=== PATIENT | male | born 1935 | race Caucasian/White ===

== ENCOUNTER → 2018-12-28 08:18 | Outpatient (CLI) | payer MEDICARE, SELFPAY ==
--- NOTE | 2018-12-28 08:30 | US_ITS ---
PROCEDURE: US AORTA CLINICAL INDICATION: AAA Abdominal aortic aneurysm follow-up COMPARISON: No exams were available for comparison FINDINGS: There are no previous exams available for comparison. There is history of aortic stent placement. Aneurysmal dilatation noted involving the abdominal aorta at the level of the umbilicus measuring 6.5 x 6.7 cm. Aortoiliac stent is noted. Common iliacs are unremarkable. There is moderate thrombus involving the aneurysm sac with flow noted within the stent. IMPRESSION: Status post aortoiliac stent placement for aortic aneurysm with dilatation of the lumbee aorta at 6.5 x 6.7 cm with patent stent within the central aspect of the aorta Dictated by: Pedro Lopez MD 12/29/2018 06:13 Electronically signed by Pedro Lopez MD in [facility] 12/29/2018 06:13
== END ==
PROVIDERS: PCP Family Medicine; Visit Provider Family Medicine
DX: Z98.890 Other specified postprocedural states (principal); R10.32 Left lower quadrant pain
CPT/HCPCS: 76770

== ENCOUNTER → 2020-05-10 13:34 | Outpatient (CLI) | payer MEDICARE, SELFPAY ==
--- NOTE | 2020-05-10 13:43 | CA_ITS ---
APPROVED REPORT Left Lower Extremity Venous Study for DVT. Chef'S Assistant: ZULMA Indications Lower Extremity Pain: Left Lower Extremity Edema: Left Patient denies trauma. He states he started having pain at his left ankle 3 days ago that has now moved up mid calf. Risk Factors HTN, hyperlipidemia, diabetes Medications Aspirin 81 mg ASA daily Vein Imaging CFV (L): compressive, spontaneous, phasic, augmentation FEM (L): compressive, spontaneous, phasic, augmentation POP (L): compressive, spontaneous, phasic, augmentation PTV (L): Compressible GSV (L): Partially Compressible SSV (L): Compressible Peroneals (L):Compressible GAS (L): Compressible Findings No evidence of DVT in the veins scanned of the left lower extremity. SVT seen in distal GSV. Conclusion No evidence of DVT in the veins scanned of the left lower extremity. SVT seen in distal GSV. Critical Notification Critical Value: Yes Physician Notified Date: 05/10/2020 Time: 14:17 Physician Name: Lilly Art Report Read Back Electronically signed by : Pedro Lopez MD 05/10/2020 16:43:51
== END ==
PROVIDERS: PCP Family Medicine; Visit Provider Family Medicine
DX: M79.662 Pain in left lower leg (principal)
CPT/HCPCS: 93971

== ENCOUNTER → 2020-12-12 13:42 | Outpatient (CLI) | payer MEDICARE, SELFPAY | PROVIDERS: PCP Family Medicine; Visit Provider Family Medicine | DX: R55 Syncope and collapse (principal) | CPT/HCPCS: 93225; 93226 ==

== ENCOUNTER → 2021-02-28 13:56 | Outpatient (CLI) | payer MEDICARE, SELFPAY ==
--- NOTE | 2021-02-28 13:59 | XR_ITS ---
PROCEDURE: XR RIBS RT MIN 3V W CXR1V CLINICAL INDICATION: CONTUSION OF RT CHEST WALL, SUBSEQUENT ENCOUNTER COMPARISON: CR CXR CHEST(2 VIEWS-NOT PORTABLE) from 06/30/2013 CR CXR CHEST(2 VIEWS-NOT PORTABLE) from 06/29/2015 FINDINGS: Frontal view of the chest shows no acute finding. Multiple views of the right ribs no definite fracture. No lytic or blastic change. IMPRESSION: No acute findings. Dictated by: Pedro Lopez MD 02/28/2021 14:34 Pedro Lopez MD in [facility] 02/28/2021 14:34
== END ==
PROVIDERS: PCP Family Medicine; Visit Provider Family Medicine
DX: S20.211D Contusion of right front wall of thorax, subsequent encounter (principal)
CPT/HCPCS: 71101

== ENCOUNTER 2021-03-30 12:12 | Inpatient (IN) | payer MEDICARE, SELFPAY ==
[2021-03-30] VITALS (17 sets, daily range): BP systolic 165–204; BP diastolic 76–117; PULSE 82–95; RESP 15–20; TEMP 36.7–36.8; O2SAT 3–96; BMI 31.9; BMI 33.1
--- NOTE | 2021-03-30 12:42 | CT_ITS ---
PROCEDURE INFORMATION: Exam: CT Abdomen And Pelvis Without Contrast Exam date and time: 03/30/2021 12:42 PM Age: 85 years old Clinical indication: Generalized; Prior surgery; Surgery date: 6+ months; Surgery type: 2 hernia surgeries, 2 stent placed at different times. ; Patient HX: Abdominal pain with distention. ; Additional info: Distention, abdominal pain TECHNIQUE: Imaging protocol: Computed tomography of the abdomen and pelvis without contrast. Radiation optimization: All CT scans at this facility use at least one of these dose optimization techniques: automated exposure control; mA and/or kV adjustment per patient size (includes targeted exams where dose is matched to clinical indication); or iterative reconstruction. COMPARISON: CR XR RIBS RT MIN 3V W CXR1V 02/28/2021 2:04 PM FINDINGS: Lungs: Calcified left pulmonary granuloma. Patchy subsegmental atelectasis or scarring in the medial right middle lobe and left lingula. No focal consolidation, as visualized. Heart: No cardiomegaly. Multiple coronary artery calcifications. Trace pericardial effusion. Liver: No hepatomegaly. Calcified hepatic granulomas. A sharply circumscribed 2.6 cm low-attenuation left hepatic lesion series 3, image 38, HU density -2, suggesting benign etiology such as cyst or possible hemangioma. No suspicious appearing mass on this limited nonenhanced exam. Gallbladder and bile ducts: Cholelithiasis. There is soft tissue edema abutting the gallbladder fundus, but no gallbladder wall thickening and no biliary dilatation. Pancreas: Fatty atrophic changes in the pancreas. No ductal dilatation. Spleen: The spleen is normal. Adrenal glands: The adrenal glands are normal. Kidneys and ureters: Small calcified stone obstructs the distal right ureter approximately 2 cm above the ureterovesical junction. This measures approximately 3 x 4 x 4 mm diameter, with HU density of 229, poorly seen on the powder monkey topogram due to tiny size of the stone and large body habitus. Proximal to this there is mild right hydronephrosis and hydroureter. There is prominent right perinephric/retroperitoneal soft tissue edema. There is an additional nonobstructing right upper pole calculus. No hydronephrosis, hydroureter, or calcified stones on the left. There is a 7 mm hyperdense left lateral renal cortical nodule with HU density 70, probably tiny hemorrhagic cyst, series 3, image 43. No suspicious lesions requiring follow-up. Stomach and bowel: There is diverticulosis coli, without evidence of acute diverticulitis. Gaseous distention of the proximal colon which could be slight colonic ileus, but no dilated loops or mucosal thickening, and no obstructing lesions are seen. No acute findings in the small intestine or stomach. Slightly thickened distal esophagus coronal image 56, and axial series 3, image 19, nonspecific, correlate for history of esophagitis. Appendix: A normal appendix is identified. Intraperitoneal space: There is mild free intraperitoneal fluid tracking along the right pericolic gutter, probably emanating from the right kidney. This is low-density fluid.There is no free intraperitoneal air. Vasculature: There is a chronic, known infrarenal abdominal aortic aneurysm. This measured 6.5 x 6.7 cm on a previous ultrasound report from 12/28/2018, and measures 6.8 x 7.2 cm diameter on series 3, image 77 today. Aorto bi-iliac endovascular stent graft is present. There is atherosclerotic disease scattered throughout the abdomen and pelvis. Lymph nodes: Calcified left hilar lymph nodes noted in the mediastinum. No significantly enlarged abdominal-pelvic lymph nodes by short axis crit
[2021-03-30 12:50] LABS: Basophils # 0.2 K/mm3 (0-0.2); Basophils % 1.4 % (0.1-2.0); Eosinophils % 0.3 % (0.1-12.0); Hematocrit 51.7 % (42.0-52.0); Hemoglobin 16.5 g/dL (14.1-18.0); Lymphocytes # 0.6 K/mm3 (0.7-4.5); Lymphocytes % 5.4 % (10-50); Mean Corpuscular HGB Conc 31.8 g/dL (31.8-35.4); Mean Corpuscular Hemoglobin 28.2 pg (27.0-31.2); Mean Corpuscular Volume 88.6 fl (80-94); Mean Platelet Volume 7.8 fl (7.4-10.4); Monocytes # 0.6 K/mm3 (0.1-1.0); Monocytes % 5.7 % (1.7-9.3); Neutrophils # 9.5 K/mm3 (1.8-7.8); Neutrophils % 87.2 % (37.0-80.0); Platelet Count 211 K/mm3 (142-424); Red Blood Count 5.83 M/mm3 (4.60-6.20); Red Cell Distribution Width 15.7 % (11.5-17.5); White Blood Count 10.9 K/mm3 (4.8-10.8)
[2021-03-30 12:52] LABS: Chloride 97 mmol/L (98-107); Sodium 136 mmol/L (136-145)
[2021-03-30 12:53] LABS: MANUAL DIFFERENTIAL MANUAL DIFFERENTIAL (MANUAL DIFF); Potassium 4.2 mmoL/L (3.5-5.1)
[2021-03-30 12:55] LABS: Alanine Aminotransferase 34 U/L (12-78); Albumin Level 4.2 g/dl (3.5-5.0); Albumin/Globulin Ratio 1.5 (1.1-1.8); Alkaline Phosphatase 83 U/L (38-126); Anion Gap 16.2 mEq/L (5-15); Aspartate Amino Transferase 40 U/L (17-59); Bilirubin,Total 0.9 mg/dl (0.2-1.3); Blood Urea Nitrogen 40 mg/dl (9-20); Calcium 8.4 mg/dl (8.4-10.2); Carbon Dioxide 27 mmol/L (22.0-30.0); Creatinine Clearance Estimated 37 mL/min (50-200); Estimated Glomerular Filt Rate 32 ml/min (>60); GFR (African American) 39 ML/MIN (>60); Globulin 2.8 g/dL (1.3-3.2); Glucose 348 mg/dl (74-100); Lipase 78 U/L (23-300)
[2021-03-30 13:19] LABS: Lymphocytes % 8 % (10-50); Monocytes % 6 % (2-9); Neutrophils % 85 % (42-76); Platelet Estimate Normal; RBC Morphology Normal; Total Cells Counted 100
[2021-03-30 13:22] LABS: Lactic Acid 2.1 mmol/L (0.7-2.1)
--- NOTE | 2021-03-30 14:57 | HMH.EDGENADL ---
ED Disposition Clinical Impression: PNA (pneumonia), Hydronephrosis concurrent with and due to calculi of kidney and ureter Disposition: Admitted As Inpatient Condition on Discharge: Fair - Critical Care Critical Care Time: Yes Attestation: On 03/30/21, the high probability of a clinically significant, sudden or life threatening deterioration of the following system(s) required my full and direct attention, intervention and personal management. The time I documented below is in addition to time spent performing reported procedures but includes the following listed in this critical care notation. Total Critical Care Time: 35 Vital system(s) involved:: Circulatory Failure, Respiratory Failure, Shock (Septic) My critical care processes included: Assessment & monitoring of V/S, Initial and Re-exams, Data Review/Interpretation, Coordinating Care, Medication Orders and management, Documentation Medical Decision Making - Medical Records Medical records reviewed: Yes: I reviewed the patient's medical records. - Roderick Inquiry Pt receiving controlled substance: No Roderick was queried for this patient: No Vital Signs: 03/30/21 12:13 03/30/21 13:30 03/30/21 14:01 Temperature 98.2 F Temperature Source Oral Pulse Rate 86 90 Pulse Rate [Left Radial] 95 H Respiratory Rate 18 16 Blood Pressure 189/94 H 181/101 H Blood Pressure [Right Arm] 180/90 H Blood Pressure Mean 113 119 Blood Pressure Mean [Right Arm] 120 Blood Pressure Source Blood Pressure Source [Right Arm] Automatic Cuff Blood Pressure Position Blood Pressure Position [Right Arm] Sitting 02 Sat by Pulse Oximetry 93 L 95 96 Oxygen Delivery Method Room Air Nasal Cannula Nasal Cannula Oxygen Flow Rate (LPM) 3 3 03/30/21 14:14 03/30/21 14:30 03/30/21 15:00 Temperature Temperature Source Pulse Rate 89 89 82 Pulse Rate [Left Radial] Respiratory Rate 16 Blood Pressure 178/91 H 192/117 H 171/90 H Blood Pressure [Right Arm] Blood Pressure Mean 120 142 117 Blood Pressure Mean [Right Arm] Blood Pressure Source Blood Pressure Source [Right Arm] Blood Pressure Position Blood Pressure Position [Right Arm] 02 Sat by Pulse Oximetry 96 95 96 Oxygen Delivery Method Nasal Cannula Nasal Cannula Nasal Cannula Oxygen Flow Rate (LPM) 3 3 3 03/30/21 15:15 03/30/21 15:30 03/30/21 16:45 Temperature Temperature Source Pulse Rate 90 86 87 Pulse Rate [Left Radial] Respiratory Rate 17 18 Blood Pressure 165/87 H 174/98 H Blood Pressure [Right Arm] Blood Pressure Mean 128 Blood Pressure Mean [Right Arm] Blood Pressure Source Blood Pressure Source [Right Arm] Blood Pressure Position Blood Pressure Position [Right Arm] 02 Sat by Pulse Oximetry 92 L 92 L 95 Oxygen Delivery Method Nasal Cannula Nasal Cannula Nasal Cannula Oxygen Flow Rate (LPM) 2.5 3 3 03/30/21 17:00 03/30/21 17:31 03/30/21 18:00 Temperature Temperature Source Pulse Rate 87 88 88 Pulse Rate [Left Radial] Respiratory Rate 15 16 16 Blood Pressure 200/100 H 188/97 H 204/105 H Blood Pressure [Right Arm] Blood Pressure Mean 133 132 138 Blood Pressure Mean [Right Arm] Blood Pressure Source Blood Pressure Source [Right Arm] Blood Pressure Position Blood Pressure Position [Right Arm] 02 Sat by Pulse Oximetry 95 95 94 L Oxygen Delivery Method Nasal Cannula Nasal Cannula Nasal Cannula Oxygen Flow Rate (LPM) 3 3 3 03/30/21 18:30 03/30/21 18:58 Temperature 98.2 F Temperature Source Oral Pulse Rate 90 83 Pulse Rate [Left Radial] Respiratory Rate 16 19 Blood Pressure 192/102 H 171/91 H Blood Pressure [Right Arm] Blood Pressure Mean 132 Blood Pressure Mean [Right Arm] Blood Pressure Source Automatic Cuff Blood Pressure Source [Right Arm] Blood Pressure Position Sitting Blood Pressure Position [Right Arm] 02 Sat by Pulse Oximetry 94 L Oxygen Delivery Method Nasal Cannula Nasal Cannula
--- NOTE | 2021-03-30 15:00 | XR_ITS ---
PROCEDURE INFORMATION: Exam: XR Chest Exam date and time: 03/30/2021 3:00 PM Age: 85 years old Clinical indication: Shortness of breath; Additional info: Hypoxia TECHNIQUE: Imaging protocol: XR of the chest. AP portable upright exam 3:13 p.m. Views: 1 view. COMPARISON: CR XR RIBS RT MIN 3V W CXR1V 02/28/2021 2:04 PM. Prior report not available. FINDINGS: Tubes, catheters and devices: Overlying oxygen tubing. Lungs: New subsegmental atelectasis in the left lower lobe and right infrahilar region, and some possible hazy airspace disease in the left lower lobe. The medial left hemidiaphragm is indistinct on today's study, a new finding compared with the prior study, which could be due to basilar atelectasis or retrocardiac consolidation. Pleural spaces: Unremarkable. No significant pleural effusion. No pneumothorax. Heart/Mediastinum: Cardiac size appears upper normal, and is accentuated by portable AP technique. Vasculature: Calcified plaque in the aortic arch. Bones/joints: Mild chronic thoracolumbar scoliosis. No acute fracture, as visualized. IMPRESSION: New patchy subsegmental atelectasis and airspace disease greatest in the left lower lobe, compared with 02/28/2021. Correlate for possible pneumonia or bronchitis.
[2021-03-30 15:23] LABS: Microscopic, Urine URINE MICROSCOPIC (MICROSCOPIC)
[2021-03-30 15:25] LABS: Appearance,Urine CLEAR (Clear); Bilirubin,Urine Negative (Negative); Blood, Urine 2+ (Negative); Color,Urine YELLOW (Yellow); Glucose,Urine (UA) 3+ (Negative); Ketones,Urine Negative (Negative); Leukocyte Esterase,Urine Negative (Negative); Nitrate,Urine Negative (Negative); Protein,Urine 1+ (Negative); Specific Gravity, Urine >= 1.030 (1.005-1.030); Urobilinogen,Urine 0.2 EU/dl (0.2)
[2021-03-30 15:49] LABS: WBC,Urine Occasional #/hpf (0-3)
--- NOTE | 2021-03-30 16:01 | PC.NURSE ---
Pt is sleeping in room comfortably
--- NOTE | 2021-03-30 16:27 | PC.NURSE ---
Contacting [facility] urologist
--- NOTE | 2021-03-30 16:31 | PC.NURSE ---
talking with Dr. Balderas urology
--- NOTE | 2021-03-30 16:39 | PC.NURSE ---
has been paged
[2021-03-30 17:02] LABS: Reflex Lactic Add Lactic Reflex
--- NOTE | 2021-03-30 17:36 | PC.NURSE ---
Speaking with [facility] at this time about pt admission
[2021-03-30 17:40] LABS: Adenovirus,PCR Not Detected (NotDetected); Bordetella Pertussis Not Detected (NotDetected); Chlamydophila Pneumoniae, PCR Not Detected (NotDetected); Coronavirus 229E Not Detected (NotDetected); Coronavirus NL63 Not Detected (NotDetected); Coronavirus OC43 Not Detected (NotDetected); Coronovirus HKU1,PCR Not Detected (NotDetected); Human Metapneumovirus Not Detected (NotDetected); Influenza A, PCR Not Detected (NotDetected); Influenza AH1, 2009 Not Detected (NotDetected); Influenza AH1, PCR Not Detected (NotDetected); Influenza AH3,PCR Not Detected (NotDetected); Influenza B, PCR Not Detected (NotDetected); Mycoplasma Pneumoniae, PCR Not Detected (NotDetected); Parainfluenza 1, PCR Not Detected (NotDetected); Parainfluenza 2, PCR Not Detected (NotDetected); Parainfluenza 3, PCR Not Detected (NotDetected); Parainfluenza 4, PCR Not Detected (NotDetected); Respiratory Syncytial Virus Not Detected (NotDetected); Rhinovirus/Enterovirus Not Detected (NotDetected)
[2021-03-30 18:07] LABS: Mycoplasma Pneumo IGM (Rapid) Non-Reactive (Non-Reactiv)
[2021-03-30 18:07] LABS: Lactic Acid Follow Up (RFLX 1) 2.3 mmol/L (0.7-2.1)
--- NOTE | 2021-03-30 18:13 | PC.NURSE ---
Attempted to call report, nurse unavailable at this time. Nurse will call when available
--- NOTE | 2021-03-30 18:55 | PC.NURSE ---
Report given to Varsha ORTIZ
[2021-03-30 19:10] LABS: POC Glucose,Bedside 331 (70-110)
[2021-03-30 19:43] LABS: Reflex Lactic (2 hrs) Add Lactic Reflex
--- NOTE | 2021-03-30 19:46 | PC.NURSE ---
Pt's daughter asking for something to eat for pt and asking about his BP meds as the most recent reading is 187/103. Cuff was in misposition, readjusted cuff and new BP is 153/94. Pt denies any pain, states he is hungry. Daughter notified that he can have a diet, gave PB & crackers and water. Let her know she is more than welcome to collect him food and bring back if there is a specific request. Called receiving RN to ask time to transfer to floor as report was called @ [phone], no answer.
--- NOTE | 2021-03-30 19:51 | PC.NURSE ---
Was able to reach receiving RN on , she states she will be down shortly. Family & pt updated.
--- NOTE | 2021-03-30 20:06 | PC.NURSE ---
patient up to floor via wheelchair @ this time.
[2021-03-30 20:20] LABS: Lactic Acid Follow up (RFLX 2) 2.5 mmol/L (0.7-2.1)
[2021-03-31] VITALS (12 sets, daily range): BP systolic 125–167; BP diastolic 79–91; PULSE 78–113; RESP 17–18; TEMP 36.6–37.1; O2SAT 89–96; BMI 33.0
[2021-03-31 07:51] LABS: Basophils # 0.1 K/mm3 (0-0.2); Basophils % 0.8 % (0.1-2.0); Eosinophils % 0.5 % (0.1-12.0); Hematocrit 50.6 % (42.0-52.0); Hemoglobin 16.1 g/dL (14.1-18.0); Lymphocytes # 1.3 K/mm3 (0.7-4.5); Lymphocytes % 14.4 % (10-50); Mean Corpuscular HGB Conc 31.7 g/dL (31.8-35.4); Mean Corpuscular Hemoglobin 28.6 pg (27.0-31.2); Mean Corpuscular Volume 90.2 fl (80-94); Mean Platelet Volume 7.8 fl (7.4-10.4); Monocytes # 0.5 K/mm3 (0.1-1.0); Monocytes % 5.3 % (1.7-9.3); Neutrophils % 78.9 % (37.0-80.0); Platelet Count 161 K/mm3 (142-424); Red Blood Count 5.61 M/mm3 (4.60-6.20); Red Cell Distribution Width 15.8 % (11.5-17.5); White Blood Count 8.9 K/mm3 (4.8-10.8)
[2021-03-31 07:58] LABS: Chloride 98 mmol/L (98-107); Potassium 3.8 mmoL/L (3.5-5.1); Sodium 136 mmol/L (136-145)
[2021-03-31 08:01] LABS: Anion Gap 13.8 mEq/L (5-15); Blood Urea Nitrogen 41 mg/dl (9-20); Carbon Dioxide 28 mmol/L (22.0-30.0); Creatinine Clearance Estimated 38 mL/min (50-200); Estimated Glomerular Filt Rate 32 ml/min (>60); GFR (African American) 39 ML/MIN (>60); Glucose 299 mg/dl (74-100)
--- NOTE | 2021-03-31 09:12 | HMH.HP ---
*Chief complaint: Pneumonia <Lilly Art 03/31/21 09:44> *History of present illness: Mr. Leary is an 85yo white male with history of T2DM, HTN, COPD, ASCVD with cardiac stents, CKD, and AAA s/p stenting. He describes being awakened with nausea and vomiting along with lower abdominal and right flank pain early yesterday morning. The pain was severe enough that he was unable to go back to sleep. When his pain became worse, he was brought to [facility] ED by his and daughter. Upon arrival, he was found to be hemodynamically stable and afebrile. He was given IV fluids, zofran, and pain medications. CT of the abdomen and pelvis was remarkable for 4mm right-sided obstructing renal stone with mild hydronephrosis and hydroureter. While patient was being observed, he began to have hypoxia and started to require oxygen. CXR was obtained which showed a left lower lobe pneumonia. His bloodwork showed DAYAMI with elevated creatinine. His case was discussed with urology at who felt the patient could likely be hydrated and observed at [facility]. He was started on ceftriaxone and azithromycin and IV fluids and admitted for further management. This morning he is sitting up in a chair in his room. He has no complaint at this time other than some very mild lower abdominal discomfort. He did have an episode of what he reports as anxiety related to claustrophobia earlier this morning, however this resolved after walking around in his room for a bit. He denies any shortness of breath although he does feel weaker than usual and has had some shakiness this morning. He thinks he may have passed a stone when he urinated earlier. <Lilly Art 03/31/21 09:44> [facility] History I have reviewed the patient's past medical history: Yes <Lilly Art 03/31/21 09:44> Medical History: Reports:: Anxiety, Atherosclerotic Heart Disease, Chronic Obstructive Pulmonary Disease (COPD), Diabetes Mellitus Type 2, Hyperlipidemia, Hypertension, Kidney Stones, Renal Insufficiency <Lilly Art 03/31/21 09:44> *Have you ever received a pneumonia vaccine?: Yes <Lilly Art 03/31/21 09:44> *Have you received a flu vaccine this season?: Yes <Lilly Art 03/31/21 09:44> Other Medical History: Reports: Cataracts <Lilly Art 03/31/21 09:44> Laterality Cases: Left: Arthroscopy Shoulder, Right: Carotid Endarterectomy (2016), Bilateral: Cataract <Henrique Art03/31/21 09:44> Other Surgeries: Yes: Angioplasty, Cardiac Catheterization, Coronary Stent, Hernia Repair, Skin Cancer Excision, Other (TURP, AAA graft 2008) <Henrique Art03/31/21 09:44> - *Social History Last grade of school completed: GED <Henrique Art03/31/21 09:44> Smoking Status: Former smoker <Lilly Art 03/31/21 09:44> Tobacco Type: cigarettes <Henrique Art03/31/21 09:44> # Packs/Day (cigarettes): 1 <Henrique Art03/31/21 09:44> Alcohol Intake: former <Henrique Art03/31/21 09:44> Alcohol Intake Frequency:: holidays/special occasions only <Henrique Art03/31/21 09:44> *Occupational Status:: retired <Henrique Art03/31/21 09:44> Housing: house <Henrique Art03/31/21 09:44> Household Members: spouse <Henrique Art03/31/21 09:44> *Travel in the last 8 weeks: None <Henrique Art03/31/21 09:44> Family Hx:: No significant family history <Lilly Art 03/31/21 09:44> Review of Systems - Constitutional Denies body ache(s), Denies chills, Denies fever(s), Denies headache(s) <Lilly Art 03/31/21 09:44> - Eyes Denies change in vision <Lilly Art 03/31/21 09:44> - ENT Denies headache(s), Denies nasal congestion, Denies sore throat <Lilly Art 03/31/21 09:44> - *Cardiovascular Reports leg swelling, Denies chest pain, Denies chest pain at rest, Denies shortness of breath <Lilly Art - 03/31/21 09:44> - *Respiratory Denies chest congestion, Denies cough, Denies shortness of breath, Denies shortness of breath with activity <Lilly Art - 03/31/21 09:44> - *Gastrointestinal Reports abdominal pain,
--- NOTE | 2021-03-31 10:44 | P.CONPHA_ITS ---
[facility] Pharmacy VTE Monitoring - Patient Demographics Admission date: 03/30/21 Report Date: 03/31/21 Time: 10:44 Allergies/Adverse Reactions: Patient Allergies No Known Allergies Allergy (Unverified 03/23/17 15:28) Height: 1.73 m Weight: 98.997 kg Patient Problems: Current Active Problems PNA (pneumonia) (Acute) Hydronephrosis concurrent with and due to calculi of kidney and ureter (Acute) - VTE Risk Labs: VTE Related Lab Results Hgb 16.1 g/dL (14.1-18.0) 03/31/21 07:17 Hct 50.6 % (42.0-52.0) 03/31/21 07:17 Plt Count 161 K/mm3 (142-424) 03/31/21 07:17 BUN 41 mg/dl (9-20) H 03/31/21 07:17 Creatinine 2.00 mg/dl (0.66-1.25) H 03/31/21 07:17 Estimated Creat Clear 38 mL/min (50-200) 03/31/21 07:17 Was VTE Risk Assessment Performed: No Clinical Trial Participant: No - Prophylaxis VTE Prophylaxis Ordered?: Yes Types of VTE Prophylaxis: TEDS Knee High Location of Applied Device: Bilateral Lower Extremeties
--- NOTE | 2021-03-31 10:45 | HMH.PHAINT ---
MEDICATION RECONCILIATION COMPLETE USING LIST FROM MD OFFICE.
[2021-03-31 11:50] LABS: POC Glucose,Bedside 395 (70-110)
--- NOTE | 2021-03-31 12:08 | PC.NURSE ---
[facility] called at this time and still awaiting bed, if needed.
--- NOTE | 2021-03-31 13:00 | PC.NURSE ---
@ 1240 called and spoke with Natali in RE to pt's blood sugar being 395. Awaiting return call at this time.
[2021-03-31 15:23] LABS: POC Glucose,Bedside 356 (70-110)
--- NOTE | 2021-03-31 19:38 | PC.NURSE ---
Spoke with Dr. Rick in RE to pt having a bed available at . Dr. Rick stated he isnt going to transfer pt to at this time. He believes he passed the kidney stone and is improving. CB in reach. VSS. Pt remains on 3 L and up to chair.
[2021-03-31 22:19] LABS: POC Glucose,Bedside 214 (70-110)
[2021-04-01] VITALS (13 sets, daily range): BP systolic 125–171; BP diastolic 63–99; PULSE 67–90; RESP 16–20; TEMP 36.4–36.8; O2SAT 85–96; BMI 34.1
--- NOTE | 2021-04-01 00:13 | PC.NURSE ---
pt called out and stated he felt like his blood sugar was low, fsbs checked 60, pt given orange juice and crackers and snacks, pt stated he felt better after eating, pt states he gets blue dots in eyes when his sugar gets low, and he stated that he drops at home in the 60's and his gives him candy bars to help bring it up. instructed patient that he needed to discuss with his pcp regarding his sugar levels, will continue to monitor.
[2021-04-01 01:05] LABS: POC Glucose,Bedside 124 (70-110)
[2021-04-01 01:05] LABS: POC Glucose,Bedside 60 (70-110)
[2021-04-01 06:40] LABS: POC Glucose,Bedside 92 (70-110)
[2021-04-01 07:20] LABS: Basophils % 0.5 % (0.1-2.0); Eosinophils # 0.1 K/mm3 (0.0-0.4); Eosinophils % 1.4 % (0.1-12.0); Hematocrit 46.5 % (42.0-52.0); Lymphocytes # 1.2 K/mm3 (0.7-4.5); Lymphocytes % 16.5 % (10-50); Mean Corpuscular HGB Conc 32.3 g/dL (31.8-35.4); Mean Corpuscular Hemoglobin 28.5 pg (27.0-31.2); Mean Corpuscular Volume 88.3 fl (80-94); Monocytes # 0.4 K/mm3 (0.1-1.0); Monocytes % 5.5 % (1.7-9.3); Neutrophils # 5.6 K/mm3 (1.8-7.8); Platelet Count 160 K/mm3 (142-424); Red Blood Count 5.27 M/mm3 (4.60-6.20); Red Cell Distribution Width 15.8 % (11.5-17.5); White Blood Count 7.3 K/mm3 (4.8-10.8)
[2021-04-01 07:25] LABS: Chloride 98 mmol/L (98-107); Potassium 3.5 mmoL/L (3.5-5.1); Sodium 135 mmol/L (136-145)
[2021-04-01 07:28] LABS: Anion Gap 9.5 mEq/L (5-15); Blood Urea Nitrogen 36 mg/dl (9-20); Carbon Dioxide 31 mmol/L (22.0-30.0); Creatinine Clearance Estimated 50 mL/min (50-200); Estimated Glomerular Filt Rate 41 ml/min (>60); GFR (African American) 50 ML/MIN (>60); Glucose 101 mg/dl (74-100)
--- NOTE | 2021-04-01 07:41 | PC.NURSE ---
pt with episode of low blood sugar at 60 through the night. VSS, pt states that his sugars run low at home as well. pt states he eats candy bars to bring sugar back up. no other issues or concerns, pt sob with exertion, 02 at 3L pnc
--- NOTE | 2021-04-01 08:31 | HMH.ACPN2 ---
<Milagros Paz - Last Filed: 04/01/21 08:31> Internal Medicine - PN: Subj *Date: 04/01/21 *Time: 08:31 Interval history: Patient slept intermittently during the night. He did feel funny and with blood sugar check was found to be 60. He was given orange juice and Pepsi gradually came up to 90 this a.m. He states he feels awful when this happens. He says it happens every 1 to 2 weeks at home and he adjust his insulin according to how he eats. He states he is eating well thus far here in the hospital. He denies chest pain and shortness of breath. CBC is normal this morning. Blood chemistries show slightly improved BUN and creatinine at 36/1.6. Sugars prior to low at 60 were 356 and 214 yesterday. O2 sat at 95% on room air. Exam Vital signs and Labs for Last 24 Hours: Temp Pulse Resp BP Pulse Ox 98.0 F 90 20 125/99 H 95 04/01/21 08:00 04/01/21 08:00 04/01/21 08:00 04/01/21 08:00 04/01/21 08:00 Laboratory Results - last 24 hr 03/31/21 11:30: POC Glucose 395 H* 03/31/21 15:13: POC Glucose 356 H* 03/31/21 20:47: POC Glucose 214 H 03/31/21 23:36: POC Glucose 60 L 04/01/21 00:50: POC Glucose 124 H 04/01/21 06:29: POC Glucose 92 04/01/21 07:00: WBC 7.3, RBC 5.27, Hgb 15.0, Hct 46.5, MCV 88.3, MCH 28.5, MCHC 32.3, RDW 15.8, Plt Count 160, MPV 8.0, Neut % (Auto) 76.0, Lymph % (Auto) 16.5, Wheeler % (Auto) 5.5, Eos % (Auto) 1.4, Baso % (Auto) 0.5, Neut # (Auto) 5.6, Lymph # (Auto) 1.2, Wheeler # (Auto) 0.4, Eos # (Auto) 0.1, Baso # (Auto) 0.0 04/01/21 07:00: Sodium 135 L, Potassium 3.5, Chloride 98, Carbon Dioxide 31 H, Anion Gap 9.5, BUN 36 H, Creatinine 1.60 H, Estimated Creat Clear 50, Estimated GFR 41 L, Est GFR ( Amer) 50 L D, Glucose 101 H D, Calcium 8.0 L I & O for Last 24 hours: Intake & Output 03/29/21 03/30/21 03/31/21 04/01/21 11:59 11:59 11:59 11:59 Intake Total 360 / 360 1450 / 1450 Output Total 0 / 0 2125 / 2125 Balance 360 / 360 -675 / -675 Weight 218 lb 4 oz 225 lb Microbiology Reports for the Last 24 Hours: Microbiology 03/30/21 14:20 Urine,Clean Catch Urine Culture - Preliminary - Constitutional no acute distress Comments: Sitting in chair at bedside. He has completed breakfast. He appears comfortable. - *Routine Respiratory Exam Present: CTA bilaterally (Anteriorly and posteriorly) - *Routine Cardiovascular Exam Present: RRR - *Routine Abdominal Exam Present: soft, normoactive bowel sounds. Absent: tenderness - *Routine Extremities Exam Absent: edema, calf tenderness - *Routine Neurological Exam Present: alert, oriented X3 Assessment and Plan (1) Hydronephrosis concurrent with and due to calculi of kidney and ureter Status: Acute Category: Medical Code(s): N13.2 - Hydronephrosis with renal and ureteral calculous obstruction (2) PNA (pneumonia) Status: Acute Category: Medical Code(s): J18.9 - Pneumonia, unspecified organism (3) CAD (coronary artery disease) Status: Acute Category: Medical Code(s): I25.10 - Atherosclerotic heart disease of [place] coronary artery without angina pectoris (4) COPD (chronic obstructive pulmonary disease) Status: Acute Category: Medical Code(s): J44.9 - Chronic obstructive pulmonary disease, unspecified (5) Renal insufficiency Status: Acute Category: Medical Code(s): N28.9 - Disorder of kidney and ureter, unspecified (6) DM type 2 (diabetes mellitus, type 2) Status: Acute Category: Medical Code(s): E11.9 - Type 2 diabetes mellitus without complications (7) CKD (chronic kidney disease) Status: Acute Category: Medical Code(s): N18.9 - Chronic kidney disease, unspecified (8) HTN (hypertension) Status: Acute Category: Medical Code(s): I10 - Essential (primary) hypertension - Assessment and plan all Dx Assessment and Plan for all problems:: We will continue with Rocephin. Insulin decreased to 39 units twice daily. We will continue with sliding scale. A
--- NOTE | 2021-04-01 08:56 | XR_ITS ---
PROCEDURE: XR CHEST 2V CLINICAL HISTORY: follow up pneumonia COMPARISON: CR XR CHEST PORTABLE from 03/30/[address] ABDOMEN PELVIS WO CON from 03/30/2021 FINDINGS: Normal heart size. Persistent and slightly more prominent parenchymal opacification in the right middle lobe may be due to an area of pneumonia and or atelectatic change. Mild left basilar atelectasis. No acute bony findings. IMPRESSION: Persistent airspace disease in the right middle lobe suggesting an area of atelectasis and or infiltrate slightly more prominent with mild left basilar atelectasis Dictated by: Pedro Lopez MD 04/01/2021 11:40 Pedro Lopez MD in [facility] 04/01/2021 11:40
[2021-04-01 09:08] LABS: POC Glucose,Bedside 219 (70-110)
[2021-04-01 10:03] LABS: Hemoglobin A1C 9.5 % (4.0-6.0)
--- NOTE | 2021-04-01 10:24 | PC.NURSE ---
patient was on room air and ambulated out into the curtis. upon checking of o2 sat noted to be 82-85%.. placed patient back on 2 l and with rest sat came back up to 90%. will continue to attempt to wean and check sats
--- NOTE | 2021-04-01 16:56 | PC.NURSE ---
patient has done well this shift. with ambulation and sleep patient sats noted to be in 80s on room air. placed back on 2l nasal cannula to get a sat of 90%. has been independent in room and has ambulated short distances in the curtis. rings out as needed. some shortness of breath noted. fsbs has been stable. vitals have been stable. has had no complaints. tolerating diet well.
[2021-04-01 19:56] LABS: POC Glucose,Bedside 201 (70-110)
[2021-04-01 19:56] LABS: POC Glucose,Bedside 230 (70-110)
[2021-04-01 21:51] LABS: POC Glucose,Bedside 215 (70-110)
[2021-04-01 22:53] LABS: POC Glucose,Bedside 174 (70-110)
[2021-04-02] VITALS (9 sets, daily range): BP systolic 111–182; BP diastolic 59–84; PULSE 70–86; RESP 18–20; TEMP 36.5–37.1; O2SAT 84–99; BMI 33.7
[2021-04-02 02:53] LABS: POC Glucose,Bedside 59 (70-110)
--- NOTE | 2021-04-02 03:29 | PC.NURSE ---
pt called out at 0300 complaining of low blood sugar, fsbs was 59, crackers and juice given and will continue to monitor
--- NOTE | 2021-04-02 06:38 | PC.NURSE ---
pt with drop in blood sugar through the night to 59 , regular insulin was held at 2100 and only 75/25 30units was given, pt given carbs and pt felt better after, noted fsbs 117 at 0600
[2021-04-02 06:46] LABS: Chloride 97 mmol/L (98-107); Potassium 3.8 mmoL/L (3.5-5.1); Sodium 135 mmol/L (136-145)
[2021-04-02 06:49] LABS: Anion Gap 10.8 mEq/L (5-15); Blood Urea Nitrogen 29 mg/dl (9-20); Calcium 8.4 mg/dl (8.4-10.2); Carbon Dioxide 31 mmol/L (22.0-30.0); Creatinine Clearance Estimated 56 mL/min (50-200); Estimated Glomerular Filt Rate 48 ml/min (>60); GFR (African American) 58 ML/MIN (>60); Glucose 92 mg/dl (74-100)
[2021-04-02 06:52] LABS: POC Glucose,Bedside 117 (70-110)
--- NOTE | 2021-04-02 07:50 | HMH.ACPN2 ---
Internal Medicine - PN: Subj *Date: 04/02/21 *Time: 07:50 Interval history: Patient states he feels fine today. He denies chest pain and shortness of breath. He has a productive cough at times. He again was awakened about 2:00 with a low blood sugar in the 50s corrected by orange juice. He was then able to sleep and awaken again around 4. He is eating and drinking without difficulties. He ambulates independently in the room. O2 sats are 84% on room air and 97 percent on O2 at 2 L. Chest x-ray yesterday showed the following: IMPRESSION: Persistent airspace disease in the right middle lobe suggesting an area of atelectasis and or infiltrate slightly more prominent with mild left basilar atelectasis Renal function continues to improve. 94% on O2 at 2 L Exam Vital signs and Labs for Last 24 Hours: Temp Pulse Resp BP Pulse Ox 97.7 F 80 18 111/59 L 84 L 04/02/21 03:48 04/02/21 06:18 04/02/21 03:48 04/02/21 03:48 04/02/21 06:18 Laboratory Results - last 24 hr 04/01/21 07:00: Hemoglobin A1c 9.5 H 04/01/21 08:56: POC Glucose 219 H 04/01/21 11:59: POC Glucose 201 H 04/01/21 16:31: POC Glucose 230 H 04/01/21 21:04: POC Glucose 215 H 04/01/21 22:46: POC Glucose 174 H 04/02/21 02:46: POC Glucose 59 L 04/02/21 06:20: Sodium 135 L, Potassium 3.8, Chloride 97 L, Carbon Dioxide 31 H, Anion Gap 10.8, BUN 29 H, Creatinine 1.40 H, Estimated Creat Clear 56, Estimated GFR 48 L, Est GFR ( Amer) 58 L, Glucose 92, Calcium 8.4 04/02/21 06:25: POC Glucose 117 H I & O for Last 24 hours: Intake & Output 03/30/21 03/31/21 04/01/21 04/02/21 11:59 11:59 11:59 11:59 Intake Total 360 / 360 1450 / 1450 360 / 360 Output Total 0 / 0 2125 / 2125 600 / 600 Balance 360 / 360 -675 / -675 -240 / -240 Weight 218 lb 4 oz 225 lb 222 lb 5 oz Microbiology Reports for the Last 24 Hours: Microbiology 03/30/21 14:20 Urine,Clean Catch Urine Culture - Preliminary - Constitutional no acute distress Comments: Sitting up at bedside chair. Has completed breakfast. Appears comfortable and speaks without signs of dyspnea - *Routine Respiratory Exam Present: CTA bilaterally (Anteriorly and posteriorly), diminished air movement (Bilateral posterior lobes) - *Routine Cardiovascular Exam Present: RRR - *Routine Abdominal Exam Present: soft, obese. Absent: tenderness - *Routine Extremities Exam Absent: edema, calf tenderness - *Routine Neurological Exam Present: alert, oriented X3 Assessment and Plan (1) Hydronephrosis concurrent with and due to calculi of kidney and ureter Status: Acute Category: Medical Code(s): N13.2 - Hydronephrosis with renal and ureteral calculous obstruction (2) PNA (pneumonia) Status: Acute Category: Medical Code(s): J18.9 - Pneumonia, unspecified organism (3) CAD (coronary artery disease) Status: Acute Category: Medical Code(s): I25.10 - Atherosclerotic heart disease of [place] coronary artery without angina pectoris (4) COPD (chronic obstructive pulmonary disease) Status: Acute Category: Medical Code(s): J44.9 - Chronic obstructive pulmonary disease, unspecified (5) Renal insufficiency Status: Acute Category: Medical Code(s): N28.9 - Disorder of kidney and ureter, unspecified (6) DM type 2 (diabetes mellitus, type 2) Status: Acute Category: Medical Code(s): E11.9 - Type 2 diabetes mellitus without complications (7) CKD (chronic kidney disease) Status: Acute Category: Medical Code(s): N18.9 - Chronic kidney disease, unspecified (8) HTN (hypertension) Status: Acute Category: Medical Code(s): I10 - Essential (primary) hypertension - Assessment and plan all Dx Assessment and Plan for all problems:: Continue with Rocephin, Zithromax, and duo nebs. Clinically patient is improved
--- NOTE | 2021-04-02 09:39 | CT_ITS ---
PROCEDURE: CT ABDOMEN PELVIS WO CON CLINICAL INDICATION: renal stone with obstruction COMPARISON: CT CT ABDOMEN PELVIS WO CON from 03/30/2021 TECHNIQUE: Axial images obtained with sagittal and coronal reformats. All CT scans at the facility use one or more dose reduction, viz: automated exposure control, ma/kV adjustment per patient size (including targeted exams where dose is matched to indication, i.e. head), or iterative reconstruction technique. FINDINGS: LOWER THORAX: Atelectasis or scarring present in the right middle lobe and lingula. There is a small hiatal hernia with mild thickening of the GE junction nonspecific. ABDOMEN & PELVIS: No change in the hypodense left hepatic lobe lesion. Cholelithiasis. The spleen, adrenal glands, and pancreas have an unremarkable appearance. 7 mm stone noted in the mid aspect of the right kidney. There is mild stranding of the right perinephric and periureteral fat. Previously noted right distal ureteral stone is no longer evident. Hemorrhagic left renal cyst unchanged. Status post aortobifem stent graft with dilatation of the [place] aorta at 6.6 cm unchanged. No evidence of acute retroperitoneal hemorrhage. There is mild thickening of the lower right lateral conal fascia and pericolic gutter which has improved. There is colonic diverticulosis. No evidence of appendicitis or diverticulitis. There are degenerative changes in the thoracic and lumbar spine IMPRESSION: 1. Right distal ureteral stone no longer evident consistent with interval passing of the stone. 2. Right nephrolithiasis unchanged. There has been interval improvement in the perinephric inflammatory changes. 3. Colonic diverticulosis. No evidence of diverticulitis. 4. Other nonacute stable findings as described above. Dictated by: Pedro Lopez MD 04/02/2021 11:49 Pedro oLpez MD in [place] 04/02/2021 11:49
--- NOTE | 2021-04-02 10:53 | PC.NURSE ---
Pt down for ct at this time.
[2021-04-02 12:01] LABS: POC Glucose,Bedside 174 (70-110)
--- NOTE | 2021-04-02 16:54 | HMH.PULMCON ---
*Admission Date: 03/30/21 *Reason for consult:: Hypoxic respiratory failure *History of present illness: Mr. Leary is a 85-year-old male no significant smoking history, smoked for 15 years, last smoked 35 years ago carries a diagnosis of diabetes, hypertension, CKD, abdominal aortic and intratesticular stenting presented to hospital with nausea vomiting and abdominal pain and found to be having new oxygen requirements and pulmonary was called for further management. [facility] History Medical History: Reports:: Anxiety, Atherosclerotic Heart Disease, Chronic Obstructive Pulmonary Disease (COPD), Diabetes Mellitus Type 2, Hyperlipidemia, Hypertension, Kidney Stones, Renal Insufficiency *Have you ever received a pneumonia vaccine?: Yes *Have you received a flu vaccine this season?: Yes Other Medical History: Reports: Cataracts Laterality Cases: Left: Arthroscopy Shoulder, Right: Carotid Endarterectomy (2016), Bilateral: Cataract Other Surgeries: Yes: Angioplasty, Cardiac Catheterization, Coronary Stent, Hernia Repair, Skin Cancer Excision, Other (TURP, AAA graft 2008) - *Social History Last grade of school completed: GED Smoking Status: Former smoker Tobacco Type: cigarettes # Packs/Day (cigarettes): 1 Alcohol Intake: former Alcohol Intake Frequency:: holidays/special occasions only *Occupational Status:: retired Housing: house Household Members: spouse *Travel in the last 8 weeks: None - Psychiatric History Pschychiatric History:: Reports:: Anxiety Family Hx:: No significant family history ROS - Cons Denies anorexia, Denies body ache(s), Denies chills - ENT Denies bleeding gums - Card Reports shortness of breath, Reports shortness of breath with activity, Reports leg swelling - Resp Respiratory: Reports shortness of breath, Reports cough, Reports non-productive cough, Denies excessive phlegm production, Denies coughing up blood, Denies pain on inspiration, Denies pain with cough, Denies cough with sputum production - GI Gastrointestingal: Denies: abdominal pain - Psych Denies thoughts of hurting/killing others, Denies thoughts of hurting/killing yourself Meds Home Medications Medication Instructions Recorded Confirmed Type Aspirin 81 mg PO DAILY 03/30/21 03/30/21 History Cholecalciferol (Vitamin D3) 25 mcg PO DAILY 03/30/21 03/30/21 History [Vitamin D3] Citalopram Hydrobromide 10 mg PO DAILY 03/30/21 03/30/21 History [Citalopram 10mg Tablet] Finasteride [Proscar] 5 mg PO DAILY 03/30/21 03/30/21 History Furosemide [Furosemide 40MG tAB*] 40 mg PO DAILY 03/30/21 03/30/21 History LORazepam [Lorazepam 0.5mg Tablet] 0.5 mg PO BIDP PRN 03/30/21 03/31/21 History Metoprolol Tartrate [Lopressor 100 mg PO BID 03/30/21 03/30/21 History 100mg Tablet] Sildenafil Citrate [Viagra] 25 mg PO TID 03/30/21 03/30/21 History Tiotropium [place] [Spiriva 4 gm IH DAILY 03/30/21 03/30/21 History Respimat] Fluticasone Propion/Salmeterol 1 each IH BID 03/31/21 03/31/21 History [Wixela 250-50 Inhub] Insulin NPH Hum/Reg Insulin Hm 42 unit SQ BID 03/31/21 03/31/21 History [Novolin 70-30 100 Unit/ml Vial] Pravastatin Sodium 10 mg PO HS 03/31/21 03/31/21 History Tamsulosin HCl [Flomax 0.4mg 0.4 mg PO HS 03/31/21 03/31/21 History capsule] Allergies Allergy/AdvReac Type Severity Reaction Status Date / Time No Known Allergies Allergy Unverified 03/23/17 15:28 Exam - Constitutional Constitutional:: Present: no acute distress, comfortable - HENMT Exam HENMT: Present: normocephalic, atraumatic - Eye Exam Eyes:: Present: normal appearance both eyes and related structures - Neck Exam Neck:: Present: normal visual inspection - Respiratory Exam Respiratory:: Present: able to speak in complete sentences, no respiratory distress, crackles. Absent: wheezing - Cardiovascular Exam Cardiac:: Present: S1, S2 - GI Exam GI:: Present: soft, distended - Skin Exam Skin: Present: warm - Neurological Exam
[2021-04-02 17:23] LABS: POC Glucose,Bedside 75 (70-110)
--- NOTE | 2021-04-02 19:40 | PC.NURSE ---
No acute changes. Pt has been up to chair this shift. VSS. Dr. Jose allowed pt to eat diabetic diet. Changed insulin 75/25 per jun.
[2021-04-02 20:11] LABS: POC Glucose,Bedside 289 (70-110)
[2021-04-03] VITALS (21 sets, daily range): BP systolic 110–186; BP diastolic 62–96; PULSE 66–90; RESP 14–22; TEMP 36.4–37.2; O2SAT 92–100; BMI 33.7
--- NOTE | 2021-04-03 | IR_ITS ---
APPROVED REPORT Patient Location: Inpatient Commercial Makeup Artist: JOSE Levin RT (R) PROCEDURES Right internal jugular vein access Right heart catheterization INDICATION Pulmonary hypertension Informed consent was obtained prior to the procedure. COMPLICATIONS None Estimated Blood Loss: Less than 10 mls TECHNIQUE One percent lidocaine was used to anesthetize the right anterior aspect of the neck. A carbonizer needle was used to identify the right internal jugular vein. Following this a larger cannulation needle was used to cannulate the right internal jugular vein and a wire was passed into the vein. Prior to the 7 [place] sheath being inserted the wire was confirmed under fluoroscopic guidance to be in the inferior vena cava. A 7 [place] sheath was introduced and a [place]-Rachna catheter was floated using hemodynamic waveforms in the pulmonary artery, right ventricle , and right atrium. Saturations were obtained in the pulmonary artery and the right atrium. At the end of the procedure the patient was transferred to the postop holding area in stable condition for sheath removal. 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 Most likely the elevated pressures are reactive and with treatment of left ventricular diastolic dysfunction with diuretics and better control of hypertension I would expect the pulmonary artery pressure to decrease PLAN 1. Recommend increasing diuretics and better control of hypertension 2. After patient has been diuresed recommend repeating right heart cath in 2 weeks to establish baseline pulmonary artery pressures when patient is better treated with diuretics Electronically signed by : Praveen Nguyễn MD 04/03/2021 12:01:50
--- NOTE | 2021-04-03 02:43 | PC.NURSE ---
at approximately 0230 pt rang out and stated that he thought his blood sugar was low, FSBS checked and was 53, orange juice given, on recheck at 0250 FSBS was 71
[2021-04-03 03:23] LABS: POC Glucose,Bedside 152 (70-110)
[2021-04-03 03:23] LABS: POC Glucose,Bedside 71 (70-110)
[2021-04-03 03:23] LABS: POC Glucose,Bedside 53 (70-110)
[2021-04-03 06:01] LABS: POC Glucose,Bedside 148 (70-110)
[2021-04-03 08:23] LABS: D-Dimer > 8.10 ug/mL (0.0-0.5)
[2021-04-03 08:24] LABS: C-Reactive Protein 36.3 mg/L (0-4)
[2021-04-03 08:36] LABS: Procalcitonin 0.158 ng/mL (0.0-2.0)
--- NOTE | 2021-04-03 08:50 | HMH.PULMPN ---
Internal Medicine - PN: Subj *Date: 04/03/21 *Time: 12:14 Interval history: No acute respiratory vents overnight. Patient currently remains on 3 L nasal cannula. Exam - Constitutional Constitutional:: Present: no acute distress, comfortable - HENMT Exam HENMT: Present: normocephalic, atraumatic - Eye Exam Eyes:: Present: normal appearance both eyes and related structures - Neck Exam Neck:: Present: normal visual inspection - Respiratory Exam Respiratory:: Present: able to speak in complete sentences, no respiratory distress, crackles. Absent: wheezing - Cardiovascular Exam Cardiac:: Present: S1, S2 - GI Exam GI:: Present: soft - Skin Exam Skin: Present: warm, no rash - Neurological Exam Neurological: Present: alert, awake, normal cognition - Extremities Exam Extremities: Present: no cyanosis, no clubbing, edema - Psychiatric Exam Psychiatric: Present: normal affect Assessment and Plan (1) Hydronephrosis concurrent with and due to calculi of kidney and ureter Status: Acute Category: Medical Code(s): N13.2 - Hydronephrosis with renal and ureteral calculous obstruction (2) PNA (pneumonia) Status: Acute Category: Medical Code(s): J18.9 - Pneumonia, unspecified organism (3) CAD (coronary artery disease) Status: Acute Category: Medical Code(s): I25.10 - Atherosclerotic heart disease of [place] coronary artery without angina pectoris (4) COPD (chronic obstructive pulmonary disease) Status: Acute Category: Medical Code(s): J44.9 - Chronic obstructive pulmonary disease, unspecified (5) Renal insufficiency Status: Acute Category: Medical Code(s): N28.9 - Disorder of kidney and ureter, unspecified (6) DM type 2 (diabetes mellitus, type 2) Status: Acute Category: Medical Code(s): E11.9 - Type 2 diabetes mellitus without complications (7) CKD (chronic kidney disease) Status: Acute Category: Medical Code(s): N18.9 - Chronic kidney disease, unspecified (8) HTN (hypertension) Status: Acute Category: Medical Code(s): I10 - Essential (primary) hypertension - Assessment and plan all Dx Assessment and Plan for all problems:: #Acute hypoxic respiratory failure: #Pulmonary embolism 85-year-old male, no significant smoking history smoked for 15 years, presented to the hospital with abdominal pain, found to be having new oxygen requirements. Patient admits previous intermittent oxygen requirements however not associated with any cough or productive phlegm. He currently denies any fevers or chills any productive phlegm. Patient has abdominal CT done on this hospital admission that shpwed small right middle lobe infiltrate that appeared improved on his repeat CT abdomen from 04/02/2021. However this will not explain patient's current oxygen requirements. On further questioning he states that he was diagnosed with pulmonary hypertension at the [facility] accident, currently on sildenafil 25 mg 3 times daily. Patient also stated that pulmonary function testing did not show any evidence of COPD. His recent 6-minute walk testing also did not qualify for him for oxygen therapy as per the patient. Examination with bilateral 3+ lower extremity edema and lower lobe crackles. Denies any personal history or family history of blood clots. He is currently receiving ceftriaxone and azithromycin. Interval update: D-dimer significant elevated followed by CT PE and DVT positive for venous thromboembolism, started on Xarelto. We will also follow with cardiology recommendations and will obtain the records from [facility]. Plan: -Xarelto 15 mg twice daily for pulmonary embolism -Incentive spirometry -Agree with continuing ceftriaxone and azithromycin. -Continue DuoNebs every 6 hours scheduled -Recommend to consider echocardiogram and cardiology consult for further evaluation of congestive heart failure and pulmonary hypertension with right heart cath. -Recommend to obtain records from [facility]
--- NOTE | 2021-04-03 08:51 | CT_ITS ---
PROCEDURE: CT ANGIO CHEST PE PROTOCOL CLINCIAL INDICATION: Hypoxia, Elevated Dimer COMPARISON: CT CT ABDOMEN PELVIS WO CON from 04/02/2021 TECHNIQUE: IV Contrast: 70ML Isovue 370 Axial images obtained with sagittal and coronal reformats. All CT scans at the facility use one or more dose reduction, viz: automated exposure control, ma/kV adjustment per patient size (including targeted exams where dose is matched to indication, i.e. head), or iterative reconstruction technique. FINDINGS: HEART AND MEDIASTINAL STRUCTURES: There is a small embolus within the posterior basilar segmental right lower lobe artery best detected on image 70 series 602. No large emboli apparent. Atherosclerotic changes are present involving the aorta with calcific and soft plaque. There is some mild ulceration involving the descending thoracic aorta. No evidence of aortic dissection. There is mild dilatation of the aortic arch at 3.1 cm. No mediastinal or hilar mass. Mild thickening of the pericardium at 9 mm. LUNGS AND PLEURAL SPACES: COPD changes. Atelectatic change versus scarring noted in the right middle lobe. There is some scarring in the left upper lobe anteriorly. There is trace right effusion. No lobar consolidation or collapse. BONY STRUCTURES: Sclerosis of multiple endplates with degenerative changes of the thoracic spine. UPPER ABDOMEN: Hypodense left hepatic lobe lesion at 2.4 cm as previously described. Cholelithiasis. Mild thickening of the distal esophagus with small hiatal hernia. ADDITIONAL FINDINGS: No other significant abnormalities. IMPRESSION: A small embolus is present in the posterior basilar segmental artery in the right lower lobe. No large pulmonary embolus evident. Atherosclerotic changes of the thoracic aorta with minimal dilatation of the aortic arch COPD with atelectatic change and/or scarring with trace right effusion. Dictated by: Pedro Lopez MD 04/03/2021 10:33 Pedro Lopez MD in [place] 04/03/2021 10:33
--- NOTE | 2021-04-03 08:51 | CA_ITS ---
APPROVED REPORT Bilateral Lower Extremity Venous Study for DVT. It Investment/Portfolio Manager: Johana Tyson RVT Indications Lower Extremity Edema: Bilateral Shortness of breath History of Smoking Hypoxia Medications Aspirin Vein Imaging CFV (R): compressive, spontaneous, phasic, augmentation FEM (R): compressive, spontaneous, phasic, augmentation POP (R): compressive, spontaneous, phasic, augmentation PTV (R): Compressible GSV (R): Compressible Peroneals (R):Compressible GAS (R): Compressible CFV (L): compressive, spontaneous, phasic, augmentation FEM (L): compressive, spontaneous, phasic, augmentation POP (L): compressive, spontaneous, phasic, augmentation PTV (L): Thrombus, Non-Compressible GSV (L): Compressible Peroneals (L):Compressible GAS (L): Compressible Findings Study suggests no evidence of DVT or SVT of the right lower extremity. Study suggests DVT of the left posterior tibial vein. Other deep veins of the left lower extremity are normal. Conclusion Study suggests no evidence of DVT or SVT of the right lower extremity. Study suggests DVT of the left posterior tibial vein. Other deep veins of the left lower extremity are normal. Critical Notification Critical Value: Yes Physician Notified Date: 04/03/2021 Time: 09:56 Physician Name: Rayray James Electronically signed by : Pedro Lopez MD 04/03/2021 14:49:55
--- NOTE | 2021-04-03 08:51 | HMH.ACPN2 ---
Internal Medicine - PN: Subj *Date: 04/03/21 *Time: 08:51 Interval history: Patient states he is feeling better this morning. He sitting up in a chair and did rest well last night. He denies any pain. He is n.p.o. this morning. He did have a low blood sugar last night in the 50s but this has improved. Exam Vital signs and Labs for Last 24 Hours: Temp Pulse Resp BP Pulse Ox 97.5 F L 90 22 186/95 H 94 L 04/03/21 08:00 04/03/21 08:00 04/03/21 08:00 04/03/21 08:00 04/03/21 08:00 Laboratory Results - last 24 hr 04/02/21 11:37: POC Glucose 174 H 04/02/21 16:14: POC Glucose 75 04/02/21 19:57: POC Glucose 289 H 04/03/21 02:34: POC Glucose 53 L 04/03/21 02:51: POC Glucose 71 04/03/21 03:16: POC Glucose 152 H 04/03/21 05:52: POC Glucose 148 H 04/03/21 05:57: C-Reactive Protein 36.3 H, Procalcitonin 0.158 04/03/21 05:57: D-Dimer > 8.10 H I & O for Last 24 hours: Intake & Output 03/31/21 04/01/21 04/02/21 04/03/21 11:59 11:59 11:59 11:59 Intake Total 360 / 360 1450 / 1450 840 / 840 240 / 240 Output Total 0 / 0 2125 / 2125 600 / 600 325 / 325 Balance 360 / 360 -675 / -675 240 / 240 -85 / -85 Weight 218 lb 4 oz 225 lb 222 lb 5 oz 222 lb 5 oz Microbiology Reports for the Last 24 Hours: Microbiology 03/30/21 14:20 Urine,Clean Catch Urine Culture - Final Multiple organisms, suggests contamination. - Constitutional no acute distress - *Routine Respiratory Exam Present: CTA bilaterally - *Routine Cardiovascular Exam Present: RRR - *Routine Abdominal Exam Present: soft, normoactive bowel sounds. Absent: tenderness - *Routine Extremities Exam Absent: cyanosis, clubbing, edema - *Routine Skin Exam Present: warm. Absent: rash - *Routine Neurological Exam Present: alert, oriented X3 Assessment and Plan (1) Hydronephrosis concurrent with and due to calculi of kidney and ureter Status: Acute Category: Medical Code(s): N13.2 - Hydronephrosis with renal and ureteral calculous obstruction (2) PNA (pneumonia) Status: Acute Category: Medical Code(s): J18.9 - Pneumonia, unspecified organism (3) CAD (coronary artery disease) Status: Acute Category: Medical Code(s): I25.10 - Atherosclerotic heart disease of [place] coronary artery without angina pectoris (4) COPD (chronic obstructive pulmonary disease) Status: Acute Category: Medical Code(s): J44.9 - Chronic obstructive pulmonary disease, unspecified (5) Renal insufficiency Status: Acute Category: Medical Code(s): N28.9 - Disorder of kidney and ureter, unspecified (6) DM type 2 (diabetes mellitus, type 2) Status: Acute Category: Medical Code(s): E11.9 - Type 2 diabetes mellitus without complications (7) CKD (chronic kidney disease) Status: Acute Category: Medical Code(s): N18.9 - Chronic kidney disease, unspecified (8) HTN (hypertension) Status: Acute Category: Medical Code(s): I10 - Essential (primary) hypertension - Assessment and plan all Dx Assessment and Plan for all problems:: Pulmonology has seen the patient and cardiology has been consulted as well. We will also consult Dr. Gaviria due to nephrolithiasis. We will also change insulin dosing to before meals as this is the way patient take his medication at home. Hopefully this will help his low blood sugars.
--- NOTE | 2021-04-03 10:59 | HMH.CNCARD ---
History of Present Illness Consult date: 04/03/21 Requesting physician: Calvin Jose Chief complaint: soa, edema History of present illness: This is an 85-year-old white gentleman who presented to the emergency department a few nights ago after waking with nausea, vomiting and lower abdominal pain and right flank pain. The patient was found to have a kidney stone. He feels that he passed the kidney stone yesterday. While the patient was in the emergency department getting fluids and pain medications he began to have hypoxia and was started on oxygen. The patient had a chest x-ray that showed a left lower lobe pneumonia. 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 He is on sildenafil for presumed pulmonary hypertension. He complains that he has been short of breath for the last several months. This is worse with exertion. It is associated with bilateral lower extremity edema which he states has worsened since being in the hospital. He states that he does have a little chest discomfort when he swallows food and feels full and burning in his chest. He denies any chest pain with exertion. He denies any fever, chills, PND or orthopnea. He states his nausea and vomiting has resolved. He also denies any diarrhea. [facility] History I have reviewed the patient's past medical history: Yes Medical History: Reports:: Anxiety, Atherosclerotic Heart Disease, Chronic Obstructive Pulmonary Disease (COPD), Diabetes Mellitus Type 2, Hyperlipidemia, Hypertension, Kidney Stones, Renal Insufficiency *Have you ever received a pneumonia vaccine?: Yes *Have you received a flu vaccine this season?: Yes Other Medical History: Reports: Cataracts Laterality Cases: Left: Arthroscopy Shoulder, Right: Carotid Endarterectomy (2016), Bilateral: Cataract Other Surgeries: Yes: Angioplasty, Cardiac Catheterization, Coronary Stent, Hernia Repair, Skin Cancer Excision, Other (TURP, AAA graft 2008) - *Social History Last grade of school completed: GED Smoking Status: Former smoker Tobacco Type: cigarettes # Packs/Day (cigarettes): 1 Alcohol Intake: former Alcohol Intake Frequency:: holidays/special occasions only *Occupational Status:: retired Housing: house Household Members: spouse *Travel in the last 8 weeks: None - Psychiatric History Pschychiatric History:: Reports:: Anxiety Family Hx:: No significant family history Meds Home Medications Medication Instructions Recorded Confirmed Type Aspirin 81 mg PO DAILY 03/30/21 03/30/21 History Cholecalciferol (Vitamin D3) 25 mcg PO DAILY 03/30/21 03/30/21 History [Vitamin D3] Citalopram Hydrobromide 10 mg PO DAILY 03/30/21 03/30/21 History [Citalopram 10mg Tablet] Finasteride [Proscar] 5 mg PO DAILY 03/30/21 03/30/21 History Furosemide [Furosemide 40MG tAB*] 40 mg PO DAILY 03/30/21 03/30/21 History LORazepam [Lorazepam 0.5mg Tablet] 0.5 mg PO BIDP PRN 03/30/21 03/31/21 History Metoprolol Tartrate [Lopressor 100 mg PO BID 03/30/21 03/30/21 History 100mg Tablet] Sildenafil Citrate [Viagra] 25 mg PO TID 03/30/21 03/30/21 History Tiotropium [place] [Spiriva 4 gm IH DAILY 03/30/21 03/30/21 History Respimat] Fluticasone Propion/Salmeterol 1 each IH BID 03/31/21 03/31/21 History [Wixela 250-50 Inhub] Insulin NPH Hum/Reg Insulin Hm 42 unit SQ BID 03/31/21 03/31/21 History [Novolin 70-30 100 Unit/ml Vial] Pravastatin Sodium 10 mg PO HS 03/31/21 03/31/21 History Tamsulosin HCl [Flomax 0.4mg 0.4 mg PO HS 03/31/21 03/31/21 History capsule] Allergies Allergy/AdvReac Type Severity Reaction Status Date / Time No Known Allergies Allergy Unverified 03/23/17 15:28 Exam Vital signs and Labs for Last 24 Hours: Temp Pulse Resp BP Pulse Ox 97.5 F L 90 22 186/95 H 94 L 04/03/21 08:00 04/03/21 08:00 04/03/21 08:00 04/03/21 08:00 04/03/21 08:00 Laboratory Results - last 24 hr 04/02/21 11:37: POC Glucose 174 H 04/02/21 16:14: POC Glucose 75 04/02/21 19:57: POC Glu
--- NOTE | 2021-04-03 11:02 | HMH.ACPN ---
Internal Medicine - PN: Subj *Date: 04/03/21 *Time: 11:02 Exam Vital signs and Labs for Last 24 Hours: Temp Pulse Resp BP Pulse Ox 97.5 F L 90 22 186/95 H 94 L 04/03/21 08:00 04/03/21 08:00 04/03/21 08:00 04/03/21 08:00 04/03/21 08:00 Laboratory Results - last 24 hr 04/02/21 11:37: POC Glucose 174 H 04/02/21 16:14: POC Glucose 75 04/02/21 19:57: POC Glucose 289 H 04/03/21 02:34: POC Glucose 53 L 04/03/21 02:51: POC Glucose 71 04/03/21 03:16: POC Glucose 152 H 04/03/21 05:52: POC Glucose 148 H 04/03/21 05:57: C-Reactive Protein 36.3 H, Procalcitonin 0.158 04/03/21 05:57: D-Dimer > 8.10 H I & O for Last 24 hours: Intake & Output 03/31/21 04/01/21 04/02/21 04/03/21 23:59 23:59 23:59 23:59 Intake Total 960 / 960 1210 / 1210 720 / 720 Output Total 1200 / 1900 925 / 925 600 / 600 800 / 800 Balance -240 / -940 285 / 285 120 / 120 -800 / -800 Weight 99 kg 102.058 kg 100.839 kg 100.839 kg Microbiology Reports for the Last 24 Hours: Microbiology 03/30/21 14:20 Urine,Clean Catch Urine Culture - Final Multiple organisms, suggests contamination. Assessment and Plan (1) Hydronephrosis concurrent with and due to calculi of kidney and ureter Status: Acute Category: Medical Code(s): N13.2 - Hydronephrosis with renal and ureteral calculous obstruction (2) PNA (pneumonia) Status: Acute Category: Medical Code(s): J18.9 - Pneumonia, unspecified organism (3) CAD (coronary artery disease) Status: Acute Category: Medical Code(s): I25.10 - Atherosclerotic heart disease of [place] coronary artery without angina pectoris (4) COPD (chronic obstructive pulmonary disease) Status: Acute Category: Medical Code(s): J44.9 - Chronic obstructive pulmonary disease, unspecified (5) Renal insufficiency Status: Acute Category: Medical Code(s): N28.9 - Disorder of kidney and ureter, unspecified (6) DM type 2 (diabetes mellitus, type 2) Status: Acute Category: Medical Code(s): E11.9 - Type 2 diabetes mellitus without complications (7) CKD (chronic kidney disease) Status: Acute Category: Medical Code(s): N18.9 - Chronic kidney disease, unspecified (8) HTN (hypertension) Status: Acute Category: Medical Code(s): I10 - Essential (primary) hypertension The patient's infection will respond to the chosen ABx?: Yes (EMPIRIC THERAPY) Could a more targeted ABx be ordered?: No (NO SPUTUM CULTURE COLLECTED)
[2021-04-03 12:51] LABS: CATHL Arterial O2 SAT 76.5 % (90-100); CATHL Venous O2 SAT 75.9 % (75-80)
--- NOTE | 2021-04-03 13:46 | HMH.CONS ---
*Admission Date: 03/30/21 *Reason for consult:: Right kidney stone *History of present illness: Mr. Leary is a 85-year-old male no significant smoking history, smoked for 15 years, last smoked 35 years ago carries a diagnosis of diabetes, hypertension, CKD, abdominal aortic and intratesticular stenting presented to hospital with nausea vomiting and abdominal pain and found to be having new oxygen requirements and pulmonary was called for further management. Patient referred to urology for a 7 mm right upper pole stone. Initial presentation he had a 4 mm right distal ureteral stone as well. Repeat CT scanning has shown patient has passed the distal stone. A 7 mm right upper pole stone is nonobstructing and patient is asymptomatic. He has been diagnosed with a left lower lobe pneumonia and also has a small right-sided pulmonary embolus for which she is being started on Xarelto later today. Patient states a prior history of kidney stones in the distant past that was treated in [facility]. [facility] History Medical History: Reports:: Anxiety, Atherosclerotic Heart Disease, Chronic Obstructive Pulmonary Disease (COPD), Diabetes Mellitus Type 2, Hyperlipidemia, Hypertension, Kidney Stones, Renal Insufficiency *Have you ever received a pneumonia vaccine?: Yes *Have you received a flu vaccine this season?: Yes Other Medical History: Reports: Cataracts Laterality Cases: Left: Arthroscopy Shoulder, Right: Carotid Endarterectomy (2016), Bilateral: Cataract Other Surgeries: Yes: Angioplasty, Cardiac Catheterization, Coronary Stent, Hernia Repair, Skin Cancer Excision, Other (TURP, AAA graft 2008) - *Social History Last grade of school completed: GED Smoking Status: Former smoker Tobacco Type: cigarettes # Packs/Day (cigarettes): 1 Alcohol Intake: former Alcohol Intake Frequency:: holidays/special occasions only *Occupational Status:: retired Housing: house Household Members: spouse *Travel in the last 8 weeks: None - Psychiatric History Pschychiatric History:: Reports:: Anxiety Family Hx:: No significant family history Review of Systems - Review of Systems Review of systems:: pertinent systems reviewed and negative unless documented below - *Neurologic Denies abnormal walking, Denies confusion, Denies headache(s) Meds Home Medications Medication Instructions Recorded Confirmed Type Aspirin 81 mg PO DAILY 03/30/21 03/30/21 History Cholecalciferol (Vitamin D3) 25 mcg PO DAILY 03/30/21 03/30/21 History [Vitamin D3] Citalopram Hydrobromide 10 mg PO DAILY 03/30/21 03/30/21 History [Citalopram 10mg Tablet] Finasteride [Proscar] 5 mg PO DAILY 03/30/21 03/30/21 History Furosemide [Furosemide 40MG tAB*] 40 mg PO DAILY 03/30/21 03/30/21 History LORazepam [Lorazepam 0.5mg Tablet] 0.5 mg PO BIDP PRN 03/30/21 03/31/21 History Metoprolol Tartrate [Lopressor 100 mg PO BID 03/30/21 03/30/21 History 100mg Tablet] Sildenafil Citrate [Viagra] 25 mg PO TID 03/30/21 03/30/21 History Tiotropium [place] [Spiriva 4 gm IH DAILY 03/30/21 03/30/21 History Respimat] Fluticasone Propion/Salmeterol 1 each IH BID 03/31/21 03/31/21 History [Wixela 250-50 Inhub] Insulin NPH Hum/Reg Insulin Hm 42 unit SQ BID 03/31/21 03/31/21 History [Novolin 70-30 100 Unit/ml Vial] Pravastatin Sodium 10 mg PO HS 03/31/21 03/31/21 History Tamsulosin HCl [Flomax 0.4mg 0.4 mg PO HS 03/31/21 03/31/21 History capsule] Allergies Allergy/AdvReac Type Severity Reaction Status Date / Time No Known Allergies Allergy Unverified 03/23/17 15:28 Exam Vital signs and Labs for Last 24 Hours: Temp Pulse Resp BP Pulse Ox 97.5 F L 69 18 177/96 H 97 04/03/21 08:00 04/03/21 12:23 04/03/21 12:20 04/03/21 12:20 04/03/21 12:20 Laboratory Results - last 24 hr 04/02/21 16:14: POC Glucose 75 04/02/21 19:57: POC Glucose 289 H 04/03/21 02:34: POC Glucose 53 L 04/03/21 02:51: POC Glucose 71 04/03/21 03:16: POC Glucose 152 H 04/03/21 05:
[2021-04-03 15:21] LABS: NT Pro Brain Natriuretic Pep. 597 pg/mL (0-450); Troponin I 0.03 ng/ml (0.00-0.034)
[2021-04-03 17:53] LABS: POC Glucose,Bedside 196 (70-110)
[2021-04-03 20:20] LABS: POC Glucose,Bedside 213 (70-110)
[2021-04-04] VITALS (12 sets, daily range): BP systolic 120–167; BP diastolic 65–95; PULSE 61–80; RESP 14–20; TEMP 36.3–36.9; O2SAT 1–96; BMI 34.5
[2021-04-04 01:39] LABS: POC Glucose,Bedside 58 (70-110)
[2021-04-04 02:13] LABS: POC Glucose,Bedside 79 (70-110)
[2021-04-04 02:13] LABS: POC Glucose,Bedside 124 (70-110)
[2021-04-04 03:34] LABS: POC Glucose,Bedside 184 (70-110)
--- NOTE | 2021-04-04 06:23 | PC.NURSE ---
Patient rested well through night. VSS on 2L per NC. Denies pain. Up ad sheron in room. Good appetite. Sinus rhythm on monitor. Right IJ site without complications. Patient did awaken once with symptoms of hypoglycemia, glucose of 58. Alert and oriented and able to take PO snack. Repeat checks within normal levels. Patient able to make needs known.
[2021-04-04 06:44] LABS: POC Glucose,Bedside 164 (70-110)
[2021-04-04 06:52] LABS: Chloride 98 mmol/L (98-107); Potassium 3.6 mmoL/L (3.5-5.1); Sodium 133 mmol/L (136-145)
[2021-04-04 06:55] LABS: Anion Gap 8.6 mEq/L (5-15); Blood Urea Nitrogen 23 mg/dl (9-20); Calcium 7.9 mg/dl (8.4-10.2); Carbon Dioxide 30 mmol/L (22.0-30.0); Creatinine Clearance Estimated 62 mL/min (50-200); Estimated Glomerular Filt Rate 53 ml/min (>60); GFR (African American) 64 ML/MIN (>60); Glucose 188 mg/dl (74-100)
--- NOTE | 2021-04-04 08:33 | HMH.ACPN2 ---
Internal Medicine - PN: Subj *Date: 04/04/21 *Time: 08:33 Interval history: Patient states he is feeling well this morning and he wants to go home. He had a heart cath yesterday showing moderate pulmonary hypertension secondary to left ventricular diastolic dysfunction. Cardiology recommended increasing his diuretics and gaining better control of his hypertension. They want a repeat his heart cath in 2 weeks to establish a baseline pulmonary artery pressure when he is better treated with diuretics. He was also seen by Dr. Gaviria who felt no surgical intervention would need to be done at this time. The patient states he slept well and is eating well and is anxious to get home before the new year. Exam Vital signs and Labs for Last 24 Hours: Temp Pulse Resp BP Pulse Ox 98.2 F 78 20 131/65 95 04/04/21 07:48 04/04/21 07:48 04/04/21 07:48 04/04/21 07:48 04/04/21 07:48 Laboratory Results - last 24 hr 03/31/21 21:00: L. pneumophila DFA Negative 04/03/21 05:57: Procalcitonin 0.158 04/03/21 11:55: ABG O2 Sat (Measured) 76.5 L, POC VBG O2 Sat (Shandra) 75.9 04/03/21 14:30: Troponin I 0.03, NT-Pro-B Natriuret Pep 597 H 04/03/21 16:32: POC Glucose 196 H 04/03/21 20:13: POC Glucose 213 H 04/04/21 01:26: POC Glucose 58 L 04/04/21 01:44: POC Glucose 79 04/04/21 02:04: POC Glucose 124 H 04/04/21 03:27: POC Glucose 184 H 04/04/21 05:56: Sodium 133 L, Potassium 3.6, Chloride 98, Carbon Dioxide 30, Anion Gap 8.6, BUN 23 H, Creatinine 1.30 H, Estimated Creat Clear 62, Estimated GFR 53 L, Est GFR ( Amer) 64, Glucose 188 H, Calcium 7.9 L 04/04/21 06:34: POC Glucose 164 H I & O for Last 24 hours: Intake & Output 04/01/21 04/02/21 04/03/21 04/04/21 11:59 11:59 11:59 11:59 Intake Total 1450 / 1450 840 / 840 240 / 240 580 / 580 Output Total 2125 / 2125 600 / 600 2150 / 2150 700 / 700 Balance -675 / -675 240 / 240 -1910 / -1910 -120 / -120 Weight 225 lb 222 lb 5 oz 222 lb 5 oz 228 lb 1.6 oz - Constitutional no acute distress - *Routine HEENT Exam Head: Present: normocephalic Eye: Present: EOMI, PERRL ENT: Present: mucous membranes moist - *Routine Neck Exam Present: supple. Absent: lymphadenopathy - *Routine Respiratory Exam Present: decreased breath sounds, CTA bilaterally - *Routine Cardiovascular Exam Present: RRR - *Routine Abdominal Exam Present: soft, normoactive bowel sounds. Absent: tenderness - *Routine Extremities Exam Present: edema. Absent: cyanosis, clubbing - *Routine Skin Exam Present: warm. Absent: rash - *Routine Neurological Exam Present: alert, oriented X3 Assessment and Plan (1) Hydronephrosis concurrent with and due to calculi of kidney and ureter Status: Acute Category: Medical Code(s): N13.2 - Hydronephrosis with renal and ureteral calculous obstruction (2) PNA (pneumonia) Status: Acute Category: Medical Code(s): J18.9 - Pneumonia, unspecified organism (3) CAD (coronary artery disease) Status: Acute Category: Medical Code(s): I25.10 - Atherosclerotic heart disease of [place] coronary artery without angina pectoris (4) COPD (chronic obstructive pulmonary disease) Status: Acute Category: Medical Code(s): J44.9 - Chronic obstructive pulmonary disease, unspecified (5) Renal insufficiency Status: Acute Category: Medical Code(s): N28.9 - Disorder of kidney and ureter, unspecified (6) DM type 2 (diabetes mellitus, type 2) Status: Acute Category: Medical Code(s): E11.9 - Type 2 diabetes mellitus without complications (7) CKD (chronic kidney disease) Status: Acute Category: Medical Code(s): N18.9 - Chronic kidney disease, unspecified (8) HTN (hypertension) Status: Acute Category: Medical Code(s): I10 - Essential (primary) hypertension (9) Kidney stone on right side Status: Acute Category: Medical Code(s): N20.0 - Calculus of kidney - Assessment and plan all Dx Assessment and Plan for all problems:: The p
--- NOTE | 2021-04-04 08:37 | HMH.PNCARD ---
Subjective Date: 04/04/21 Time: 08:30 Principal diagnosis: diastolic dysfunction Interval history: This is an 85-year-old white gentleman who presented to the emergency department with nausea vomiting and lower abdominal pain. He was found to have a kidney stone. The patient states he feels as if he has already passed the kidney stone now. While he was in the emergency department getting fluids during his work-up for the kidney stones the patient became hypoxic and was started on oxygen. His chest x-ray showed left lower lobe pneumonia. 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 He underwent right cardiac catheterization yesterday and showed moderate pulmonary hypertension secondary to left ventricular diastolic dysfunction. His pulmonary hypertension is most likely all secondary to hypertensive heart disease. His elevated pressures are reactive and with treatment of diastolic dysfunction with diuretics and better blood pressure control his pulmonary pressures will likely decrease. This morning he states that he is still short of breath but it is stable. He states his lower extremity edema has improved. He denies any chest pain or pressure. He denies any fever, chills, nausea, vomiting, diarrhea, PND or orthopnea. Exam Vital signs and Labs for Last 24 Hours: Temp Pulse Resp BP Pulse Ox 98.2 F 78 20 131/65 95 04/04/21 07:48 04/04/21 07:48 04/04/21 07:48 04/04/21 07:48 04/04/21 07:48 Laboratory Results - last 24 hr 03/31/21 21:00: L. pneumophila DFA Negative 04/03/21 05:57: Procalcitonin 0.158 04/03/21 11:55: ABG O2 Sat (Measured) 76.5 L, POC VBG O2 Sat (Shandra) 75.9 04/03/21 14:30: Troponin I 0.03, NT-Pro-B Natriuret Pep 597 H 04/03/21 16:32: POC Glucose 196 H 04/03/21 20:13: POC Glucose 213 H 04/04/21 01:26: POC Glucose 58 L 04/04/21 01:44: POC Glucose 79 04/04/21 02:04: POC Glucose 124 H 04/04/21 03:27: POC Glucose 184 H 04/04/21 05:56: Sodium 133 L, Potassium 3.6, Chloride 98, Carbon Dioxide 30, Anion Gap 8.6, BUN 23 H, Creatinine 1.30 H, Estimated Creat Clear 62, Estimated GFR 53 L, Est GFR ( Amer) 64, Glucose 188 H, Calcium 7.9 L 04/04/21 06:34: POC Glucose 164 H I & O for Last 24 hours: Intake & Output 04/01/21 04/02/21 04/03/21 04/04/21 23:59 23:59 23:59 23:59 Intake Total 1210 / 1210 720 / 720 100 / 100 480 / 480 Output Total 925 / 925 600 / 900 2850 / 2850 Balance 285 / 285 120 / -180 -2750 / -2750 480 / 480 Weight 225 lb 222 lb 5 oz 222 lb 5 oz 228 lb 1.6 oz - Constitutional no acute distress, obese - *Routine HEENT Exam Head: Present: normocephalic, atraumatic Eye: Present: EOMI, PERRL ENT: Present: mucous membranes moist - *Routine Neck Exam Present: supple, full ROM, normal carotid upstroke. Absent: JVD, carotid bruit, lymphadenopathy - *Routine Respiratory Exam Present: CTA bilaterally - *Routine Cardiovascular Exam Present: RRR, Normal S1, Normal S2. Absent: murmur - *Routine Abdominal Exam Present: soft, normoactive bowel sounds. Absent: tenderness, distended - *Routine Extremities Exam Present: edema, full ROM, pulses intact, normal capillary refill. Absent: cyanosis, clubbing - *Routine Skin Exam Present: intact, warm. Absent: erythema, rash - *Routine Neurological Exam Present: alert, oriented X3, CN II-XII intact. Absent: sensory deficit, motor deficit Progress Note: A&P (1) SOB (shortness of breath) Status: Acute (2) Diastolic dysfunction Status: Acute (3) Pulmonary hypertension Status: Acute (4) Hydronephrosis concurrent with and due to calculi of kidney and ureter Status: Acute (5) PNA (pneumonia) Status: Acute (6) CAD (coronary artery disease) Status: Acute (7) COPD (chronic obstructive pulmonary disease) Status: Acute (8) Renal insufficiency Status: Acute (9) DM type 2 (diabetes mellitus, type 2) Status: Acute (10) CKD (chronic kidney disease
[2021-04-04 11:12] LABS: POC Glucose,Bedside 209 (70-110)
--- NOTE | 2021-04-04 11:20 | ECG_ITS ---
APPROVED REPORT Exam: Resting ECG HR:70 bpm ECG Measurements Heart Rate 70 AXES MO 164 P 68 QRSd 96 QRS -21 QT 406 T 33 QTc 438 Conclusion Sinus rhythm with premature atrial complexes Otherwise normal ECG Electronically signed by : Benny Delgado MD 04/05/2021 09:50:16
[2021-04-04 15:57] LABS: POC Glucose,Bedside 255 (70-110)
--- NOTE | 2021-04-04 16:04 | PC.NURSE ---
Pt has been pleasant and cooperative this shift. A&O X4. No complaints of pain. Pt is currently receiving O2 via NC @ 1 LPM with sats. >90%. Lung sounds reveal expiratory rhonchi. 2+ pitting edema noted to BLE. Skin is C/D/I. Pt ambulates with stand-by assistance to/from the bathroom and throughout the room. Pt has been up in the recliner for the entirety of the shift thus far today. Urine is clear and yellow. No BM thus far today. Appetite is good and pt eats the majority of all meals. 20 G peripheral IV in the RT wrist is patent and SL. 20 G peripheral IV in the RT AC is patent and SL. VSS. Call light within reach. Will continue to monitor.
[2021-04-04 20:28] LABS: POC Glucose,Bedside 202 (70-110)
[2021-04-05] VITALS: BP 132/72; PULSE 60; PULSE 65; RESP 16; TEMP 36.6; O2SAT 91
[2021-04-05 04:00] VITALS: BP 160/61; PULSE 66; PULSE 70; RESP 16; TEMP 36.7; O2SAT 93
[2021-04-05 05:30] VITALS: BMI 34.5
[2021-04-05 05:46] LABS: POC Glucose,Bedside 119 (70-110)
[2021-04-05 06:36] VITALS: PULSE 74; O2SAT 94
[2021-04-05 07:41] LABS: Basophils # 0.1 K/mm3 (0-0.2); Basophils % 0.9 % (0.1-2.0); Eosinophils # 0.2 K/mm3 (0.0-0.4); Hematocrit 46.6 % (42.0-52.0); Hemoglobin 14.7 g/dL (14.1-18.0); Lymphocytes # 1.6 K/mm3 (0.7-4.5); Mean Corpuscular HGB Conc 31.6 g/dL (31.8-35.4); Mean Corpuscular Hemoglobin 28.5 pg (27.0-31.2); Mean Corpuscular Volume 90.1 fl (80-94); Mean Platelet Volume 8.1 fl (7.4-10.4); Monocytes # 0.4 K/mm3 (0.1-1.0); Monocytes % 5.4 % (1.7-9.3); Neutrophils # 5.8 K/mm3 (1.8-7.8); Neutrophils % 71.8 % (37.0-80.0); Platelet Count 196 K/mm3 (142-424); Red Blood Count 5.16 M/mm3 (4.60-6.20); Red Cell Distribution Width 15.9 % (11.5-17.5)
[2021-04-05 07:59] LABS: Anion Gap 8.7 mEq/L (5-15); Blood Urea Nitrogen 27 mg/dl (9-20); Calcium 8.7 mg/dl (8.4-10.2); Carbon Dioxide 34 mmol/L (22.0-30.0); Chloride 94 mmol/L (98-107); Creatinine Clearance Estimated 50 mL/min (50-200); Estimated Glomerular Filt Rate 41 ml/min (>60); GFR (African American) 50 ML/MIN (>60); Glucose 152 mg/dl (74-100); Potassium 3.7 mmoL/L (3.5-5.1); Sodium 133 mmol/L (136-145)
[2021-04-05 08:00] VITALS: BP 143/91; PULSE 70; PULSE 80; RESP 16; TEMP 36.6; O2SAT 92
--- NOTE | 2021-04-05 10:54 | HMH.ACPN2 ---
Internal Medicine - PN: Subj *Date: 04/05/21 *Time: 10:54 Interval history: He is feeling quite well this morning. He has had a dry cough but after some productivity his cough has improved. He is in no respiratory distress. He still has leg edema. Exam Vital signs and Labs for Last 24 Hours: Temp Pulse Resp BP Pulse Ox 97.9 F 80 16 143/91 H 92 L 04/05/21 08:00 04/05/21 08:00 04/05/21 08:00 04/05/21 08:00 04/05/21 08:00 Laboratory Results - last 24 hr 04/04/21 10:33: POC Glucose 209 H 04/04/21 15:46: POC Glucose 255 H 04/04/21 20:15: POC Glucose 202 H 04/05/21 05:38: POC Glucose 119 H 04/05/21 07:30: WBC 8.0, RBC 5.16, Hgb 14.7, Hct 46.6, MCV 90.1, MCH 28.5, MCHC 31.6 L, RDW 15.9, Plt Count 196, MPV 8.1, Neut % (Auto) 71.8, Lymph % (Auto) 20.0, Elliott % (Auto) 5.4, Eos % (Auto) 2.0, Baso % (Auto) 0.9, Neut # (Auto) 5.8, Lymph # (Auto) 1.6, Elliott # (Auto) 0.4, Eos # (Auto) 0.2, Baso # (Auto) 0.1 04/05/21 07:30: Sodium 133 L, Potassium 3.7, Chloride 94 L, Carbon Dioxide 34 H, Anion Gap 8.7, BUN 27 H, Creatinine 1.60 H D, Estimated Creat Clear 50, Estimated GFR 41 L, Est GFR ( Amer) 50 L D, Glucose 152 H, Calcium 8.7 I & O for Last 24 hours: Intake & Output 04/02/21 04/03/21 04/04/21 04/05/21 11:59 11:59 11:59 11:59 Intake Total 840 / 840 240 / 240 580 / 580 1200 / 1200 Output Total 600 / 600 2150 / 2150 700 / 700 700 / 700 Balance 240 / 240 -1910 / -1910 -120 / -120 500 / 500 Weight 222 lb 5 oz 222 lb 5 oz 228 lb 1.6 oz 228 lb 1.514 oz - Constitutional no acute distress - *Routine HEENT Exam Head: Present: normocephalic Eye: Present: EOMI, PERRL ENT: Present: mucous membranes moist - *Routine Neck Exam Present: supple. Absent: JVD, lymphadenopathy - *Routine Respiratory Exam Present: CTA bilaterally. Absent: rales, rhonchi, wheezes - *Routine Cardiovascular Exam Present: RRR - *Routine Abdominal Exam Present: soft, normoactive bowel sounds, obese. Absent: tenderness - *Routine Extremities Exam Present: edema (At least 2+ edema bilaterally. Weight is stable.). Absent: cyanosis, clubbing - *Routine Skin Exam Present: intact, warm. Absent: rash - *Routine Neurological Exam Present: alert, oriented X3 Assessment and Plan (1) Kidney stone on right side Status: Acute Category: Medical Code(s): N20.0 - Calculus of kidney (2) Hydronephrosis concurrent with and due to calculi of kidney and ureter Status: Acute Category: Medical Code(s): N13.2 - Hydronephrosis with renal and ureteral calculous obstruction (3) Diastolic dysfunction Status: Acute Category: Medical Code(s): I51.89 - Other ill-defined heart diseases (4) Pulmonary embolism Status: Acute Category: Medical Code(s): I26.99 - Other pulmonary embolism without acute cor pulmonale (5) Deep vein thrombosis (DVT) of popliteal vein of left lower extremity Status: Acute Category: Medical Code(s): I82.432 - Acute embolism and thrombosis of left popliteal vein (6) DM type 2 (diabetes mellitus, type 2) Status: Acute Category: Medical Code(s): E11.9 - Type 2 diabetes mellitus without complications (7) Pulmonary hypertension Status: Acute Category: Medical Code(s): I27.20 - Pulmonary hypertension, unspecified (8) PNA (pneumonia) Status: Acute Category: Medical Code(s): J18.9 - Pneumonia, unspecified organism (9) CAD (coronary artery disease) Status: Acute Category: Medical Code(s): I25.10 - Atherosclerotic heart disease of [place] coronary artery without angina pectoris (10) COPD (chronic obstructive pulmonary disease) Status: Acute Category: Medical Code(s): J44.9 - Chronic obstructive pulmonary disease, unspecified (11) Renal insufficiency Status: Acute Category: Medical Code(s): N28.9 - Disorder of kidney and ureter, unspecified (12) CKD (chronic kidney disease) Status: Acute Category: Medical Code(s): N18.9 - Chronic kidney disease, unspec
[2021-04-05 20:22] LABS: POC Glucose,Bedside 269 (70-110)
--- NOTE | 2021-04-08 22:10 | HMH.DCSUM ---
General - General Admission date:: 03/30/21 Discharge date: 04/05/21 HPI HPI: Mr. Leary is an 85yo white male with history of T2DM, HTN, COPD, ASCVD with cardiac stents, CKD, and AAA s/p stenting. He describes being awakened with nausea and vomiting along with lower abdominal and right flank pain early yesterday morning. The pain was severe enough that he was unable to go back to sleep. When his pain became worse, he was brought to [facility] ED by his and daughter. Upon arrival, he was found to be hemodynamically stable and afebrile. He was given IV fluids, zofran, and pain medications. CT of the abdomen and pelvis was remarkable for 4mm right-sided obstructing renal stone with mild hydronephrosis and hydroureter. While patient was being observed, he began to have hypoxia and started to require oxygen. CXR was obtained which showed a left lower lobe pneumonia. His bloodwork showed DAYAMI with elevated creatinine. His case was discussed with urology at who felt the patient could likely be hydrated and observed at [facility]. He was started on ceftriaxone and azithromycin and IV fluids and admitted for further management. This morning he is sitting up in a chair in his room. He has no complaint at this time other than some very mild lower abdominal discomfort. He did have an episode of what he reports as anxiety related to claustrophobia earlier this morning, however this resolved after walking around in his room for a bit. He denies any shortness of breath although he does feel weaker than usual and has had some shakiness this morning. He thinks he may have passed a stone when he urinated earlier. Hospital Course Hospital Course: The patient was admitted and started on IV fluids and antibiotics for his community-acquired pneumonia. He felt like he had passed the stone. He was still short of breath and was given a dose of Lasix and his home medications were resumed. He did have episodes of hypoglycemia during the night throughout his stay. He stated this happened at home every few weeks and he adjusts his insulin according to how he eats, which seems to help. His insulin dose was decreased. His renal function improved. His oxygen was weaned and he had a repeat chest x-ray showing persistent airspace disease in the right middle lobe suggesting an area of atelectasis and/or infiltrate slightly more prominent with mild left basilar atelectasis. He was continued on Rocephin, Zithromax, and duo nebs. Pulmonology was consulted and agreed with his pneumonia treatment. He did want a CRP and a D-dimer as well as an echocardiogram and a cardiology consult for further evaluation of his congestive heart failure. The patient had an abdominal pelvic CT showing a right distal ureteral stone no longer evident consistent with passing of the stone. There was still right nephrolithiasis, but there was interval improvement in the perinephric inflammatory changes. His D-dimer was elevated, therefore a chest CTA was ordered. It showed a small embolus in the posterior basilar segmental artery in the right lower lobe. He was also seen by cardiology who performed a heart cath which showed moderate pulmonary hypertension. They recommended increasing his diuretics and then repeating a heart cath. The patient was started on Xarelto for his PE. He had venous Dopplers performed which showed a DVT of the left posterior tibial vein. The patient clinically improved and was able to sit up in a chair and ambulate around the room. The patient's requested to see Dr. Gaviria, therefore he was consulted as well. He saw the patient and discussed treatment options for the patient's 7 mm nonobstructing stone. As he had been started on Xarelto, the decision was made to follow with watchful waiting rather than surgery. The patient diuresed well. Cardiology wanted to repeat the patient's heart cath in 2 weeks after diuresis, but due to his new pulmonary embolus and DVT,
== END 2021-04-05 11:45 | disposition home or self-care (01) | DRG 693 ==
LOC: ER 12:49 → 2ND 19:44
PROVIDERS: Internal Medicine; Internal Medicine Pulmonary Disease; Nurse Practitioner Family; Admitting Provider Family Medicine; Emergency Provider Emergency Medicine; PCP Family Medicine; Visit Provider Family Medicine
PROC: 4A023N6 Measurement of Cardiac Sampling and Pressure, Right Heart, Percutaneous Approach (ICD-10-PCS; principal; 2021-04-03 11:15)
DX: N13.2 Hydronephrosis with renal and ureteral calculous obstruction (principal); J18.9 Pneumonia, unspecified organism; I26.99 Other pulmonary embolism without acute cor pulmonale; J96.01 Acute respiratory failure with hypoxia; I82.432 Acute embolism and thrombosis of left popliteal vein; J44.0 Chronic obstructive pulmonary disease with (acute) lower respiratory infection; I50.30 Unspecified diastolic (congestive) heart failure; I13.0 Hypertensive heart and chronic kidney disease with heart failure and stage 1 through stage 4 chronic kidney disease, or unspecified chronic kidney disease; N17.9 Acute kidney failure, unspecified; E11.22 Type 2 diabetes mellitus with diabetic chronic kidney disease; Z79.4 Long term (current) use of insulin; I25.10 Atherosclerotic heart disease of native coronary artery without angina pectoris; N18.9 Chronic kidney disease, unspecified; Z20.822 Contact with and (suspected) exposure to COVID-19; Z79.899 Other long term (current) drug therapy; I27.20 Pulmonary hypertension, unspecified; Z95.5 Presence of coronary angioplasty implant and graft; J43.0 Unilateral pulmonary emphysema [MacLeod's syndrome]; Z79.02 Long term (current) use of antithrombotics/antiplatelets; Z87.891 Personal history of nicotine dependence; Z85.828 Personal history of other malignant neoplasm of skin
CPT/HCPCS: 93451; 36415; 71045; 71046; 71275; 74176; 80048; 80053; 81001; 82810; 82962; 83036; 83605; 83690; 83880; 84145; 84484; 85007; 85025; 85378; 86140; 86738; 87086; 87278; 87486; 87581; 87632; 87798; 93005; 93306; 93970; 94640; 94760; 94761; 96365; 96367; 99152; 99284; C1894; J0456; J1644; J2405; Q9967

== ENCOUNTER 2021-04-08 18:54 | Inpatient (IN) | payer MEDICARE, SELFPAY ==
[2021-04-08] VITALS (11 sets, daily range): BP systolic 90–143; BP diastolic 54–89; PULSE 54–88; RESP 16–30; TEMP 36.4–36.6; O2SAT 2–97; BMI 33.3; BMI 33.6
--- NOTE | 2021-04-08 19:06 | XR_ITS ---
PROCEDURE INFORMATION: Exam: XR Chest Exam date and time: 04/08/2021 7:06 PM Age: 85 years old Clinical indication: Cough TECHNIQUE: Imaging protocol: XR of the chest. Views: 1 view. Upright AP portable exam 7:21 p.m. 2 images received. COMPARISON: CR XR CHEST 2V 04/01/2021 9:00 AM FINDINGS: Lungs: Compared with 04/01/2021, there is improved aeration of the medial right middle lobe with decreased atelectasis. However, there is new increased interstitial prominence in both lower lung swan, with coarsened interstitial markings and peribronchial thickening. Upper lungs remain clear, with mild emphysematous changes greater on the left, as seen on the prior CT exam. Chronic calcified left retrocardiac pulmonary granuloma. Pleural spaces: Unremarkable. No significant pleural effusion. No pneumothorax. Heart/Mediastinum: The cardiac silhouette is normal. Overlying cardiac cath technician electrodes. Vasculature: Calcified plaque in the aortic arch. Bones/joints: There is no evidence of acute fracture. Mild chronic spinal degenerative changes. IMPRESSION: 1. Increased bilateral lower pulmonary interstitial prominence and peribronchial thickening compared with the prior chest x-ray from 04/01/2021, worrisome for bronchitis and interstitial pneumonia. 2. No focal consolidation. Improved aeration of the right middle lobe. 3. Chronic emphysematous and granulomatous changes on the left. 4. Additional nonemergency and chronic findings as above.
--- NOTE | 2021-04-08 19:07 | ECG_ITS ---
APPROVED REPORT Exam: Resting ECG HR:64 bpm ECG Measurements Heart Rate 64 AXES WV 166 P 64 QRSd 90 QRS -42 QT 432 T 53 QTc 445 Conclusion Normal sinus rhythm Left axis deviation Abnormal ECG Electronically signed by : Benny Delgado MD 04/11/2021 14:34:53
--- NOTE | 2021-04-08 19:21 | HMH.EDGENADL ---
ED Disposition Clinical Impression: Acute exacerbation of chronic obstructive airways disease, SOB (shortness of breath) PNA (pneumonia) Qualifiers: Pneumonia type: due to unspecified organism Laterality: bilateral Lung location: lower lobe of lung Qualified Code(s): J18.9 - Pneumonia, unspecified organism DM type 2 (diabetes mellitus, type 2) Qualifiers: Diabetes mellitus correction insulin use: unspecified correction insulin use status Diabetes mellitus complication status: with other specified complication Qualified Code(s): E11.69 - Type 2 diabetes mellitus with other specified complication Disposition: Admitted As Inpatient Condition on Discharge: Fair Referrals: Calvin Jose MD [Primary Care Provider] - - Critical Care Critical Care Time: No Attestation: On 04/08/21, the high probability of a clinically significant, sudden or life threatening deterioration of the following system(s) required my full and direct attention, intervention and personal management. The time I documented below is in addition to time spent performing reported procedures but includes the following listed in this critical care notation. Medical Decision Making - Medical Records Medical records reviewed: Yes: I reviewed the patient's medical records. - Roderick Inquiry Pt receiving controlled substance: No Vital Signs: 04/08/21 18:55 04/08/21 19:24 04/08/21 19:31 Temperature 97.5 F L Temperature Source Oral Pulse Rate 87 62 Pulse Rate [Apical] 67 Respiratory Rate 24 30 H Blood Pressure 143/74 H Blood Pressure [Right Arm] 124/79 Blood Pressure Mean [Right Arm] 94 Blood Pressure Source [Right Arm] Automatic Cuff Blood Pressure Position [Right Arm] Sitting 02 Sat by Pulse Oximetry 90 L 95 Oxygen Delivery Method Room Air Nasal Cannula Oxygen Flow Rate (LPM) 2 - Lab Data Lab Results 04/08/21 19:11: SARS-CoV-2 (PCR) Not detected, Influenza A Untype (PCR) Not detected, Influenza Type B (PCR) Not detected 04/08/21 19:20: Urine Color Yellow, Urine Appearance Clear, Urine pH 5.5, Ur Specific [place] 1.020, Urine Protein Trace, Urine Glucose (UA) Negative, Urine Ketones Negative, Urine Blood 1+, Urine Nitrate Negative, Urine Bilirubin Negative, Urine Urobilinogen 0.2, Ur Leukocyte Esterase Negative, Urine RBC Occasional, Urine WBC Occasional, Ur Squamous Epith Cells Occasional, Urine Bacteria Trace, Urine Mucus Trace 04/08/21 19:31: WBC 6.9, RBC 5.11, Hgb 14.7, Hct 45.8, MCV 89.5, MCH 28.7, MCHC 32.1, RDW 15.9, Plt Count 211, MPV 8.0, Neut % (Auto) 74.8, Lymph % (Auto) 15.1, [place] % (Auto) 6.5, Eos % (Auto) 2.5, Baso % (Auto) 1.1, Neut # (Auto) 5.1, Lymph # (Auto) 1.0, [place] # (Auto) 0.5, Eos # (Auto) 0.2, Baso # (Auto) 0.1 04/08/21 19:31: PT 19.7 H, INR 1.82 H, APTT 42.2 H 04/08/21 19:31: Sodium 132 L, Potassium 3.9, Chloride 93 L, Carbon Dioxide 34 H, Anion Gap 8.9, BUN 26 H, Creatinine 1.60 H, Estimated Creat Clear 48, Estimated GFR 41 L, Est GFR ( Amer) 50 L, Glucose 191 H, Calcium 8.1 L, Total Bilirubin 0.4, AST 35, ALT 28, Alkaline Phosphatase 60, Total Protein 6.6, Albumin 3.8, Globulin 2.8, Albumin/Globulin Ratio 1.4, Lipase 237 Result diagrams: 04/08/21 19:31 04/08/21 19:31 Orders (Tests/Meds): ED MEDICATIONS Generic Name Dose Route Start Last Admin Trade Name Freq PRN Reason Stop Dose Admin Ceftriaxone Sodium 1 gm/ 50 mls @ 100 mls/hr 04/08/21 20:00 Sodium Chloride IV 04/22/21 19:59 Q24H BRITNEY Doxycycline Hyclate 100 mg/ 250 mls @ 166.667 mls/hr 04/08/21 20:00 Sodium Chloride IV 04/22/21 19:59 Q12H BRITNEY Discontinued Medications Generic Name Dose Route Start Last Admin Trade Name Freq PRN Reason Stop Dose Admin Albuterol/Ipratropium 3 ml 04/08/21 19:07 04/08/21 19:24 Ipratropium/Albuterol 3 Ml Neb IH 04/08/21 19:08 3 ml ONCE ONE Administration Albuterol/Ipratropium 3 ml 04/08/21 19:49 04/08/21 19:55 Ipratropium/Albuterol 3 Ml Neb IH 04/08/21 19:
[2021-04-08 19:28] LABS: Microscopic, Urine URINE MICROSCOPIC (MICROSCOPIC)
[2021-04-08 19:28] LABS: Coronavirus 19, PCR Not Detected (NotDetected); Influenza A, PCR Not Detected (NotDetected); Influenza B, PCR Not Detected (NotDetected)
[2021-04-08 19:35] LABS: Appearance,Urine CLEAR (Clear); Bilirubin,Urine Negative (Negative); Blood, Urine 1+ (Negative); Color,Urine YELLOW (Yellow); Glucose,Urine (UA) Negative (Negative); Ketones,Urine Negative (Negative); Leukocyte Esterase,Urine Negative (Negative); Nitrate,Urine Negative (Negative); PH,Urine 5.5 (5.0-8.5); Protein,Urine TRACE (Negative); Urobilinogen,Urine 0.2 EU/dl (0.2)
[2021-04-08 19:39] LABS: Basophils # 0.1 K/mm3 (0-0.2); Basophils % 1.1 % (0.1-2.0); Eosinophils # 0.2 K/mm3 (0.0-0.4); Eosinophils % 2.5 % (0.1-12.0); Hematocrit 45.8 % (42.0-52.0); Hemoglobin 14.7 g/dL (14.1-18.0); Lymphocytes % 15.1 % (10-50); Mean Corpuscular HGB Conc 32.1 g/dL (31.8-35.4); Mean Corpuscular Hemoglobin 28.7 pg (27.0-31.2); Mean Corpuscular Volume 89.5 fl (80-94); Monocytes # 0.5 K/mm3 (0.1-1.0); Monocytes % 6.5 % (1.7-9.3); Neutrophils # 5.1 K/mm3 (1.8-7.8); Neutrophils % 74.8 % (37.0-80.0); Platelet Count 211 K/mm3 (142-424); Red Blood Count 5.11 M/mm3 (4.60-6.20); Red Cell Distribution Width 15.9 % (11.5-17.5); White Blood Count 6.9 K/mm3 (4.8-10.8)
[2021-04-08 19:42] LABS: Bacteria,Urine Trace /lpf; Mucus,Urine Trace /lpf; RBC,Urine Occasional #/hpf (0-3); Squamous Epithelial Cell,Urine Occasional #/hpf (0-5); WBC,Urine Occasional #/hpf (0-3)
[2021-04-08 19:47] LABS: Alanine Aminotransferase 28 U/L (12-78); Albumin Level 3.8 g/dl (3.5-5.0); Albumin/Globulin Ratio 1.4 (1.1-1.8); Alkaline Phosphatase 60 U/L (38-126); Anion Gap 8.9 mEq/L (5-15); Aspartate Amino Transferase 35 U/L (17-59); Bilirubin,Total 0.4 mg/dl (0.2-1.3); Blood Urea Nitrogen 26 mg/dl (9-20); Calcium 8.1 mg/dl (8.4-10.2); Carbon Dioxide 34 mmol/L (22.0-30.0); Chloride 93 mmol/L (98-107); Creatinine Clearance Estimated 48 mL/min (50-200); Estimated Glomerular Filt Rate 41 ml/min (>60); GFR (African American) 50 ML/MIN (>60); Globulin 2.8 g/dL (1.3-3.2); Glucose 191 mg/dl (74-100); Lipase 237 U/L (23-300); Potassium 3.9 mmoL/L (3.5-5.1); Sodium 132 mmol/L (136-145); Total Protein,Serum 6.6 g/dl (6.3-8.2)
[2021-04-08 19:49] LABS: Activated Partial Thrombo Time 42.2 seconds (22.8-30.6); INR 1.82 (0.9-1.1); Prothrombin Time 19.7 seconds (10.1-12.5)
[2021-04-08 19:59] LABS: NT Pro Brain Natriuretic Pep. 606 pg/mL (0-450); Troponin I 0.02 ng/ml (0.00-0.034)
[2021-04-08 20:18] LABS: Thyroid Stimulating Hormone 5.11 uIU/mL (0.465-4.68)
[2021-04-08 20:19] LABS: ABG Base Excess -1.7 mmol/L (-2.4-2.3); ABG HCO3 22.7 mmhg (22.0-26.0); ABG Oxygen Saturation 92 % (90-100); ABG PH 7.43 mmol/L (7.35-7.45); ABG PO2 60.6 mmhg (80-100); ABG TCO2 23.7 mmhg (23-27); Allen's Test Acceptable; Oxygen 21 %; Source Right Radial
--- NOTE | 2021-04-08 21:12 | PC.NURSE ---
Report called at this time DIANA Boateng
--- NOTE | 2021-04-08 21:19 | PC.NURSE ---
patient up to floor via wheelchair @ this time.
[2021-04-08 23:00] LABS: Troponin I 0.01 ng/ml (0.00-0.034)
[2021-04-09] VITALS (14 sets, daily range): BP systolic 118–179; BP diastolic 73–83; PULSE 60–122; RESP 14–20; TEMP 36.3–36.9; O2SAT 94–96
[2021-04-09 02:46] LABS: Troponin I < 0.01 ng/ml (0.00-0.034)
[2021-04-09 06:16] LABS: POC Glucose,Bedside 385 (70-110)
[2021-04-09 06:16] LABS: POC Glucose,Bedside 359 (70-110)
--- NOTE | 2021-04-09 07:43 | P.CONPHA_ITS ---
[facility] Pharmacy VTE Monitoring - Patient Demographics Admission date: 04/09/21 Report Date: 04/09/21 Time: 07:43 Allergies/Adverse Reactions: Patient Allergies No Known Allergies Allergy (Unverified 03/23/17 15:28) Height: 1.73 m Weight: 100.754 kg Patient Problems: Current Active Problems PNA (pneumonia) (Acute) DM type 2 (diabetes mellitus, type 2) (Acute) SOB (shortness of breath) (Acute) Acute exacerbation of chronic obstructive airways disease (Acute) - VTE Risk Labs: VTE Related Lab Results Hgb 14.7 g/dL (14.1-18.0) 04/08/21 19:31 Hct 45.8 % (42.0-52.0) 04/08/21 19:31 Plt Count 211 K/mm3 (142-424) 04/08/21 19:31 PT 19.7 seconds (10.1-12.5) H 04/08/21 19:31 INR 1.82 (0.9-1.1) H 04/08/21 19:31 APTT 42.2 seconds (22.8-30.6) H 04/08/21 19:31 BUN 26 mg/dl (9-20) H 04/08/21 19:31 Creatinine 1.60 mg/dl (0.66-1.25) H 04/08/21 19:31 Estimated Creat Clear 48 mL/min (50-200) 04/08/21 19:31 Clinical Trial Participant: No - Prophylaxis VTE Prophylaxis Ordered?: Yes Types of VTE Prophylaxis: TEDS Knee High, Pharmacological Pharmacologic Type: Enoxaparin
[2021-04-09 07:54] LABS: Basophils % 0.3 % (0.1-2.0); Hematocrit 45.2 % (42.0-52.0); Hemoglobin 14.3 g/dL (14.1-18.0); Lymphocytes # 0.4 K/mm3 (0.7-4.5); Lymphocytes % 8.6 % (10-50); Mean Corpuscular HGB Conc 31.7 g/dL (31.8-35.4); Mean Corpuscular Hemoglobin 28.6 pg (27.0-31.2); Mean Corpuscular Volume 90.2 fl (80-94); Mean Platelet Volume 7.8 fl (7.4-10.4); Monocytes # 0.1 K/mm3 (0.1-1.0); Monocytes % 1.7 % (1.7-9.3); Neutrophils # 4.4 K/mm3 (1.8-7.8); Neutrophils % 89.4 % (37.0-80.0); Platelet Count 216 K/mm3 (142-424); Red Blood Count 5.01 M/mm3 (4.60-6.20); Red Cell Distribution Width 16.1 % (11.5-17.5); White Blood Count 4.9 K/mm3 (4.8-10.8)
[2021-04-09 07:55] LABS: MANUAL DIFFERENTIAL MANUAL DIFFERENTIAL (MANUAL DIFF)
[2021-04-09 08:06] LABS: Anion Gap 9.2 mEq/L (5-15); Blood Urea Nitrogen 27 mg/dl (9-20); Calcium 7.8 mg/dl (8.4-10.2); Carbon Dioxide 30 mmol/L (22.0-30.0); Chloride 93 mmol/L (98-107); Creatinine Clearance Estimated 60 mL/min (50-200); Estimated Glomerular Filt Rate 53 ml/min (>60); GFR (African American) 64 ML/MIN (>60); Glucose 374 mg/dl (74-100); Potassium 4.2 mmoL/L (3.5-5.1); Sodium 128 mmol/L (136-145)
--- NOTE | 2021-04-09 08:34 | HMH.HP ---
*Admission Date: 04/09/21 *Chief complaint: Shortness of breath and dry cough *History of present illness: Mr. Candelario is an 85-year-old male with a history of recent hospitalization for pneumonia and pulmonary embolism discharged on 04/05/2021, type 2 diabetes mellitus, hypertension, ASCVD, who states that after going home he felt fine the following day. Then on 04/07/2021 he began to have the dry cough again associated with shortness of breath. This progressively worsened. He also describes some left chest discomfort which he associates with the cough and the shortness of breath. He denies cardiac pain, and palpitations. He continues to have leg edema and describes leg weakness with difficulty in walking. He presented to the office of [facility] on 04/08/2021 for follow-up after hospitalization with noted O2 sats at 90%. Lungs with diminished breath sounds and rales on the right and a noted cough. CBC done in the office revealed a white blood cell count of 4400 and hemoglobin of 10.3 hematocrit of 31.5. He was sent to the emergency room for further evaluation for possible admission to the hospital. In the emergency room O2 sats were 90% on room air and 95% on O2 per nasal cannula at 2 L/min.He was noted to be afebrile. Laboratory data showed a normal white blood cell count. ABGs showed a pH of 7.43, PCO2 of 35, PO2 of 60.6 and a bicarb of 22.7. Blood blood chemistries revealed a low sodium at 132 with a repeat this morning of 128. Renal function improved with a creatinine of 1.6 on admission and 1.3 this morning. Blood sugars have been elevated in the 300s. Liver function studies were normal. Troponin I's were negative x3. BNP was elevated at 606. TSH was high at 5.11. Chest x-ray revealed increased bilateral pleural pulmonary interstitial prominence and peribronchial thickening compared with the prior chest x-ray from 04/01/2021; Worrisome for bronchitis and interstitial pneumonia. In the emergency room patient was started on Rocephin and doxycycline IV. He was also given a DuoNeb treatment and dexamethasone. Patient states he did sleep some last night. He may feel slightly better this a.m. He continues with a dry hacking cough. He is very frustrated. [facility] History Medical History: Reports:: Anxiety, Atherosclerotic Heart Disease, Chronic Obstructive Pulmonary Disease (COPD), Cerebrovascular Accident, Depression, Diabetes Mellitus Type 2, Hyperlipidemia, Hypertension, Kidney Stones, Pulmonary Embolism, Renal Insufficiency *Have you ever received a pneumonia vaccine?: Yes *Have you received a flu vaccine this season?: Yes Other Medical History: Reports: Cataracts Laterality Cases: Left: Arthroscopy Shoulder, Right: Carotid Endarterectomy (2016), Bilateral: Cataract Other Surgeries: Yes: Angioplasty, Cardiac Catheterization, Coronary Stent, Hernia Repair, Skin Cancer Excision, Other (TURP, AAA graft 2008) - *Social History Last grade of school completed: [employer] Smoking Status: Former smoker Tobacco Type: cigarettes # Packs/Day (cigarettes): 1 Alcohol Intake: former Alcohol Intake Frequency:: holidays/special occasions only *Occupational Status:: unemployed Housing: house Household Members: spouse *Travel in the last 8 weeks: None - Psychiatric History Pschychiatric History:: Reports:: Anxiety, Depression Family Hx:: No significant family history Review of Systems - Constitutional Denies fever(s) - Eyes Denies change in vision - ENT Denies dizziness, Denies ear pain, Denies sore throat - *Cardiovascular Reports chest pain, Reports shortness of breath, Reports leg swelling, Denies irregular heart rhythm - *Respiratory Reports chest congestion, Reports cough, Reports shortness of breath, Denies coughing up blood - *Gastrointestinal Denies abdominal pain, Denies change in bowel habits, Denies change in stools, Denies constipation, Denies nausea, Denies vomiting - *Genitourinary Denies difficulty urinating - *Musculo
[2021-04-09 08:35] LABS: Lymphocytes % 12 % (10-50); Monocytes % 3 % (2-9); Neutrophils % 85 % (42-76); Platelet Estimate Normal; Total Cells Counted 100
[2021-04-09 08:36] LABS: RBC Morphology Normal
--- NOTE | 2021-04-09 09:03 | HMH.PULMCON ---
*Admission Date: 04/09/21 *Reason for consult:: COPD exacerbation *History of present illness: Ms. Leary is a 85-year-old male recently admitted to the hospital hypoxic respiratory failure status post right heart cath with pulmonary hypertension due to status post diuresis improved discharged home presented hospital worsening respiratory status and pulmonary was called for further management [facility] History Medical History: Reports:: Anxiety, Atherosclerotic Heart Disease, Chronic Obstructive Pulmonary Disease (COPD), Cerebrovascular Accident, Depression, Diabetes Mellitus Type 2, Hyperlipidemia, Hypertension, Kidney Stones, Pulmonary Embolism, Renal Insufficiency *Have you ever received a pneumonia vaccine?: Yes *Have you received a flu vaccine this season?: Yes Other Medical History: Reports: Cataracts Laterality Cases: Left: Arthroscopy Shoulder, Right: Carotid Endarterectomy (2016), Bilateral: Cataract Other Surgeries: Yes: Angioplasty, Cardiac Catheterization, Coronary Stent, Hernia Repair, Skin Cancer Excision, Other (TURP, AAA graft 2008) - *Social History Last grade of school completed: [employer] Smoking Status: Former smoker Tobacco Type: cigarettes # Packs/Day (cigarettes): 1 Alcohol Intake: former Alcohol Intake Frequency:: holidays/special occasions only *Occupational Status:: unemployed Housing: house Household Members: spouse *Travel in the last 8 weeks: None - Psychiatric History Pschychiatric History:: Reports:: Anxiety, Depression Family Hx:: No significant family history ROS - Cons Reports body ache(s), Denies anorexia, Denies chills - ENT Denies bleeding gums - Card Reports shortness of breath, Reports shortness of breath with activity - Resp Respiratory: Reports cough, Reports dyspnea, Reports dyspnea on exertion, Denies excessive phlegm production, Denies pain with cough, Reports cough with sputum production, Denies pain with breathing - GI Gastrointestingal: Denies: abdominal pain - [place] Musculoskeletal: Denies small joint pain in the hands - Psych Denies thoughts of hurting/killing others, Denies thoughts of hurting/killing yourself Meds Home Medications Medication Instructions Recorded Confirmed Type Aspirin 81 mg PO DAILY 03/30/21 04/09/21 History Cholecalciferol (Vitamin D3) 25 mcg PO DAILY 03/30/21 04/09/21 History [Vitamin D3] Citalopram Hydrobromide 10 mg PO DAILY 03/30/21 04/09/21 History [Citalopram 10mg Tablet] Finasteride [Proscar] 5 mg PO DAILY 03/30/21 04/09/21 History LORazepam [Lorazepam 0.5mg Tablet] 0.5 mg PO BIDP PRN 03/30/21 04/09/21 History Metoprolol Tartrate [Lopressor 100 mg PO BID 03/30/21 04/09/21 History 100mg Tablet] Tiotropium Alvord [Spiriva 2 puff IH DAILY 03/30/21 04/09/21 History Respimat] Fluticasone Propion/Salmeterol 1 each IH BID 03/31/21 04/09/21 History [Wixela 250-50 Inhub] Insulin NPH Hum/Reg Insulin Hm 42 unit SQ BID 03/31/21 04/09/21 History [Novolin 70-30 100 Unit/ml Vial] Pravastatin Sodium 10 mg PO HS 03/31/21 04/09/21 History Tamsulosin HCl [Flomax 0.4mg 0.4 mg PO HS 03/31/21 04/09/21 History capsule] Furosemide [Furosemide 40MG tAB*] 40 mg PO BID #60 tab 04/05/21 04/09/21 Rx Potassium Chloride [Klor-con 20 20 meq PO BID 04/09/21 04/09/21 History mEq tablet] Rivaroxaban [Xarelto 15mg tablet] 15 mg PO BID 04/09/21 04/09/21 History Verapamil HCl [Calan SR 120mg 240 mg PO DAILY 04/09/21 04/09/21 History tablet] Allergies Allergy/AdvReac Type Severity Reaction Status Date / Time No Known Allergies Allergy Unverified 03/23/17 15:28 Exam - Constitutional Constitutional:: Present: no acute distress, comfortable - HENMT Exam HENMT: Present: normocephalic, atraumatic - Eye Exam Eyes:: Present: normal appearance both eyes and related structures - Neck Exam Neck:: Present: normal visual inspection - Respiratory Exam Respiratory:: Present: able to speak in complete sentences, respiratory
--- NOTE | 2021-04-09 09:29 | HMH.CNCARD ---
History of Present Illness Consult date: 04/09/21 Requesting physician: Calvin Jose Consult reason: shortness of breath Chief complaint: Short of breath History of present illness: This is an 85-year-old patient male admitted with worsening shortness of breath. Patient states he was discharged from this facility on 04/05/2021 after being diagnosed with pulmonary embolus and pneumonia. Patient is currently taking Xarelto 15 mg p.o. twice daily due to PE. Patient does have history of pulmonary hypertension. Pt underwent right cardiac catheterization 03/25 which revealed moderate pulmonary hypertension secondary to left ventricular diastolic dysfunction. Pulmonary hypertension is most likely all secondary to hypertensive heart disease. Elevated pressures are reactive and with treatment of diastolic dysfunction with diuretics and better blood pressure control his pulmonary pressures will likely decrease. Chest x-ray revealed increased bilateral lower pulmonary interstitial and peribronchial thickening compared with prior chest x-ray on 04/01/2021 which was concerning for bronchitis and interstitial pneumonia. Chronic emphysema was noted on the left. Patient states he just felt like he cannot catch his breath at home. Patient states he was unable to do his daily activities due to the shortness of breath becoming worse. Patient does complain of a dry hacking cough. Patient denies fevers. Patient denies nausea or vomiting. Patient is currently on oxygen supplement in which he says this is helped. Patient denies chest pain, tightness or pressure. There is swelling of the lower extremities. Patient denies palpitations or dizziness. EKG reveals sinus rhythm with a heart rate of 64 bpm. Blood pressure is slightly elevated. Troponin negative. Creatinine 1.30. Patient does have history of diabetes in which his blood glucose level is over 300. Echocardiogram from 1 reveals EF 55 to 60% with no regional wall motion abnormality. Diastolic dysfunction noted. Mild MR noted. CXR:IMPRESSION: 1. Increased bilateral lower pulmonary interstitial prominence and peribronchial thickening compared with the prior chest x-ray from 04/01/2021, worrisome for bronchitis and interstitial pneumonia. 2. No focal consolidation. Improved aeration of the right middle lobe. 3. Chronic emphysematous and granulomatous changes on the left. 4. Additional nonemergency and chronic findings as above. Right heart cath:ANGIOGRAPHIC RESULTS (03/25) Right atrial pressure 10 mmHg Right ventricular pressure 60/10 mmHg Pulmonary artery pressure 60/30 mmHg Pulmonary occlusion pressure 22 mmHg Right atrial saturation 75% Pulmonary artery saturation 76% Aortic saturation 99% IMPRESSION Moderate pulmonary hypertension secondary to left ventricular diastolic dysfunction Patient likely has pulmonary hypertension all secondary to hypertensive heart disease. Most likely the elevated pressures are reactive and with treatment of left ventricular diastolic dysfunction with diuretics and better control of hypertension I would expect the pulmonary artery pressure to decrease PLAN 1. Recommend increasing diuretics and better control of hypertension 2. After patient has been diuresed recommend repeating right heart cath in 2 weeks to establish baseline pulmonary artery pressures when patient is better treated with diuretics [facility] History I have reviewed the patient's past medical history: Yes Medical History: Reports:: Anxiety, Atherosclerotic Heart Disease, Chronic Obstructive Pulmonary Disease (COPD), Cerebrovascular Accident, Depression, Diabetes Mellitus Type 2, Hyperlipidemia, Hypertension, Kidney Stones, Pulmonary Embolism, Renal Insufficiency *Have you ever received a pneumonia vaccine?: Yes *Have you received a flu vaccine this season?: Yes Other Medical History: Reports: Cataracts Laterality Cases: Left: Arthroscopy Shoulder, Right: Carotid Endarterectomy (2016), Bilat
[2021-04-09 09:36] LABS: C-Reactive Protein 31.6 mg/L (0-4)
[2021-04-09 09:49] LABS: Procalcitonin 0.129 ng/mL (0.0-2.0)
[2021-04-09 12:03] LABS: POC Glucose,Bedside 425 (70-110)
--- NOTE | 2021-04-09 18:49 | PC.NURSE ---
Pt has been up to the chair majority of this shift. Pt remains on 2L NC. IS @ bedside, this RN educated pt on use and purpose. IS @ best is 2000 cc's. No other acute changes or complaints.
[2021-04-09 21:24] LABS: Glucose,Random 561 mg/dL (74-100)
[2021-04-10] VITALS (8 sets, daily range): BP systolic 138–156; BP diastolic 73–94; PULSE 63–80; RESP 14–19; TEMP 36.3–36.9; O2SAT 86–95; BMI 33.2
[2021-04-10 02:28] LABS: POC Glucose,Bedside 148 (70-110)
--- NOTE | 2021-04-10 07:00 | PC.NURSE ---
Patient rested fair through night. VSS on 2L per NC. No c/o pain. Sinus rhythm on monitor. Patient had hyperglycemia at start of shift, improved with interventions given. Pleasant and cooperative. C/o cough and trouble sleeping d/t it. Able to make needs known.
[2021-04-10 07:06] LABS: POC Glucose,Bedside 110 (70-110)
--- NOTE | 2021-04-10 08:43 | HMH.ACPN2 ---
Internal Medicine - PN: Subj *Date: 04/10/21 *Time: 08:43 Interval history: Patient states he had a horrible night. He did not sleep at all due to coughing. He states he has not been given any cough medication. He was jittery and attributed this to either the steroids or the neb treatments. He states he skipped a few neb treatments because of this. He denies any pain and did eat breakfast this morning. Exam Vital signs and Labs for Last 24 Hours: Temp Pulse Resp BP Pulse Ox 98.4 F 71 15 143/79 H 86 L 04/10/21 04:00 04/10/21 04:00 04/10/21 04:00 04/10/21 04:00 04/10/21 06:24 Laboratory Results - last 24 hr 04/09/21 06:45: C-Reactive Protein 31.6 H, Procalcitonin 0.129 04/09/21 11:32: POC Glucose 425 H* 04/09/21 21:00: Random Glucose 561 H* 04/10/21 02:20: POC Glucose 148 H 04/10/21 06:58: POC Glucose 110 I & O for Last 24 hours: Intake & Output 04/07/21 04/08/21 04/09/21 04/10/21 11:59 11:59 11:59 11:59 Intake Total 480 / 480 960 / 960 Balance 480 / 480 960 / 960 Weight 222 lb 2 oz 219 lb 3.2 oz Microbiology Reports for the Last 24 Hours: Microbiology 04/09/21 13:53 Sputum - Expectorated Sputum Gram Stain - Final - Constitutional no acute distress - *Routine Respiratory Exam Present: rhonchi, wheezes - *Routine Cardiovascular Exam Present: RRR - *Routine Abdominal Exam Present: soft, normoactive bowel sounds. Absent: tenderness - *Routine Extremities Exam Absent: cyanosis, clubbing, edema - *Routine Skin Exam Present: warm. Absent: rash - *Routine Neurological Exam Present: alert, oriented X3 Assessment and Plan (1) Acute exacerbation of chronic obstructive airways disease Status: Acute Category: Medical Code(s): J44.1 - Chronic obstructive pulmonary disease with (acute) exacerbation (2) CAD (coronary artery disease) Status: Acute Category: Medical Code(s): I25.10 - Atherosclerotic heart disease of [place] coronary artery without angina pectoris (3) COPD (chronic obstructive pulmonary disease) Status: Acute Category: Medical Code(s): J44.9 - Chronic obstructive pulmonary disease, unspecified (4) DM type 2 (diabetes mellitus, type 2) Status: Acute Qualifiers: Diabetes mellitus halfway insulin use: unspecified terminal supervisor insulin use status Diabetes mellitus complication status: with other specified complication Qualified Code(s): E11.69 - Type 2 diabetes mellitus with other specified complication Category: Medical Code(s): E11.9 - Type 2 diabetes mellitus without complications (5) Deep vein thrombosis (DVT) of popliteal vein of left lower extremity Status: Acute Category: Medical Code(s): I82.432 - Acute embolism and thrombosis of left popliteal vein (6) Diastolic dysfunction Status: Acute Category: Medical Code(s): I51.89 - Other ill-defined heart diseases (7) Edema Status: Acute Category: Medical Code(s): R60.9 - Edema, unspecified (8) HLD (hyperlipidemia) Status: Acute Category: Medical Code(s): E78.5 - Hyperlipidemia, unspecified (9) HTN (hypertension) Status: Acute Category: Medical Code(s): I10 - Essential (primary) hypertension (10) PNA (pneumonia) Status: Acute Qualifiers: Pneumonia type: due to unspecified organism Laterality: bilateral Lung location: lower lobe of lung Qualified Code(s): J18.9 - Pneumonia, unspecified organism Category: Medical Code(s): J18.9 - Pneumonia, unspecified organism (11) Pulmonary embolism Status: Acute Category: Medical Code(s): I26.99 - Other pulmonary embolism without acute cor pulmonale (12) Pulmonary hypertension Status: Acute Category: Medical Code(s): I27.20 - Pulmonary hypertension, unspecified (13) Renal insufficiency Status: Acute Category: Medical Code(s): N28.9 - Disorder of kidney and ureter, unspecified - Assessment and plan all Dx Assessment and Plan for all problems:: P
--- NOTE | 2021-04-10 09:15 | HMH.PULMPN ---
Internal Medicine - PN: Subj *Date: 04/10/21 *Time: 10:46 Interval history: No acute respiratory events overnight. Patient refuses nebulizer therapy this morning. Concern as this might etiology for his hyperglycemia. Patient reassured. Exam - Constitutional Constitutional:: Present: no acute distress, comfortable - HENMT Exam HENMT: Present: normocephalic, atraumatic - Eye Exam Eyes:: Present: normal appearance both eyes and related structures - Neck Exam Neck:: Present: normal visual inspection - Respiratory Exam Respiratory:: Present: able to speak in complete sentences, no respiratory distress. Absent: wheezing - Cardiovascular Exam Cardiac:: Present: S1, S2 - GI Exam GI:: Present: soft - Skin Exam Skin: Present: warm, no rash - Neurological Exam Neurological: Present: alert, awake, normal cognition - Extremities Exam Extremities: Present: no cyanosis, no clubbing, edema Assessment and Plan (1) Acute exacerbation of chronic obstructive airways disease Status: Acute Category: Medical Code(s): J44.1 - Chronic obstructive pulmonary disease with (acute) exacerbation (2) CAD (coronary artery disease) Status: Acute Category: Medical Code(s): I25.10 - Atherosclerotic heart disease of [place] coronary artery without angina pectoris (3) COPD (chronic obstructive pulmonary disease) Status: Acute Category: Medical Code(s): J44.9 - Chronic obstructive pulmonary disease, unspecified (4) DM type 2 (diabetes mellitus, type 2) Status: Acute Qualifiers: 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 insulin use status Diabetes mellitus complication status: with other specified complication Qualified Code(s): E11.69 - Type 2 diabetes mellitus with other specified complication Category: Medical Code(s): E11.9 - Type 2 diabetes mellitus without complications (5) Deep vein thrombosis (DVT) of popliteal vein of left lower extremity Status: Acute Category: Medical Code(s): I82.432 - Acute embolism and thrombosis of left popliteal vein (6) Diastolic dysfunction Status: Acute Category: Medical Code(s): I51.89 - Other ill-defined heart diseases (7) Edema Status: Acute Category: Medical Code(s): R60.9 - Edema, unspecified (8) HLD (hyperlipidemia) Status: Acute Category: Medical Code(s): E78.5 - Hyperlipidemia, unspecified (9) HTN (hypertension) Status: Acute Category: Medical Code(s): I10 - Essential (primary) hypertension (10) PNA (pneumonia) Status: Acute Qualifiers: Pneumonia type: due to unspecified organism Laterality: bilateral Lung location: lower lobe of lung Qualified Code(s): J18.9 - Pneumonia, unspecified organism Category: Medical Code(s): J18.9 - Pneumonia, unspecified organism (11) Pulmonary embolism Status: Acute Category: Medical Code(s): I26.99 - Other pulmonary embolism without acute cor pulmonale (12) Pulmonary hypertension Status: Acute Category: Medical Code(s): I27.20 - Pulmonary hypertension, unspecified (13) Renal insufficiency Status: Acute Category: Medical Code(s): N28.9 - Disorder of kidney and ureter, unspecified - Assessment and plan all Dx Assessment and Plan for all problems:: #COPD exacerbation: #H/OPulmonary embolism: 81 y/o male recently admitted to the hospital respiratory failure found to have pulmonary embolism started on anticoagulation, also had a right heart cath from diagnosis pulmonary hypertension group 2 areas with improvement in symptoms presented to the hospital again worsening respiratory status and pulmonary was called for further management. 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 Patient during his most recent visit received ceftriaxone & azithromycin. Physical examination significantly improved volume status and decrease in his lower extremity edema from his recent admission. Chest x-
[2021-04-10 11:49] LABS: POC Glucose,Bedside 166 (70-110)
--- NOTE | 2021-04-10 15:06 | PC.NURSE ---
Pt is alert and oriented x4. He has been pleasant and cooperative w/staff and care. Rhonchi and wheezes noted to lungs. He is currently on 3L NC w/O2 sats measuring mid-upper 90's. He has an intermittent, non productive cough. He states new meds have provided some relief for that. NSR on telemetry. Appetite is good w/pt eating almost all of his meals. He has been up to the chair the majority of the shift. No other complaints verbalized.
[2021-04-10 15:34] LABS: POC Glucose,Bedside 118 (70-110)
--- NOTE | 2021-04-10 16:18 | PC.NURSE ---
Pt is alert and oriented x4. He has been pleasant and cooperative w/staff and care. Faint wheezes noted throughout lungs. He is currently on 3L NC w/O2 sats measuring mid-upper 90's. He has an intermittent cough that has become slightly more productive than usual. He states new cough meds have helped with that. NSR on telemetry. Appetite is good w/pt eating almost all of his meals. He has been up to the chair the majority of the shift. Pt rang out at approx 1545 and stated he was feeling a little more sob and somewhat anxious. Pt's O2 was 97-98%. Glucose was 118. PRN ativan administered and he reported some relief on reassessment.
[2021-04-10 21:00] LABS: POC Glucose,Bedside 288 (70-110)
[2021-04-11] VITALS (31 sets, daily range): BP systolic 99–177; BP diastolic 71–103; PULSE 66–110; RESP 17–42; TEMP 36.1–36.9; O2SAT 90–100; BMI 33.2
--- NOTE | 2021-04-11 | IR_ITS ---
APPROVED REPORT Patient Location: Inpatient Resident In Diagnostic Radiology: JOSE Krishnan RT (R) PROCEDURES Left heart catheterization Left ventriculogram Selective coronary angiogram INDICATION Acute ST elevation myocardial infarction, Status post cardiac resuscitation Informed consent was obtained prior to the procedure. COMPLICATIONS None Estimated Blood Loss: Less than 10 mls TECHNIQUE One percent lidocaine used to anesthetize the right anterior aspect of the wrist. The right radial artery was accessed via the Seldinger technique. A 6 [place] sheath was placed in the right radial artery. 2.5 mg of verapamil, 800 mcg of nitroglycerin, 1mg Lidocaine and 5000 U Heparin were given through the arterial sheath. The [place] catheter was also used to perform left heart catheterization, left ventriculogram and selective coronary angiogram. At the end of the procedure the sheath was removed good hemostasis was achieved using Traclet band, patient was transferred to the postop holding area in stable condition. ANGIOGRAPHIC RESULTS The left main artery Has an eccentric 10 to 20% stenosis The left anterior descending artery Has proximal 10 to 20% luminal irregularities followed by lesion which starts in the proximal segment and extends into the mid segment which is long and calcified with no greater than 30 to 40% stenosis. There is an additional mid vessel focal 40 to 50% stenosis with a distal 90% stenosis as the LAD wraps the apex and supplies the inferior wall The circumflex artery Is a dominant vessel and has proximal 20 to 30% stenoses with mid vessel 30% stenoses. First obtuse marginal artery has a proximal and mid vessel 30 to 40% stenosis while the second obtuse marginal artery has a mid vessel 40% stenosis. The right coronary artery Small nondominant normal The GARCIA ventriculogram reveals Preserved at 50% The left ventricular end-diastolic pressure Elevated at 30 mmHg IMPRESSION Coronary disease as described above Severe stenosis in the distal LAD involving a wraparound LAD which supplies the inferior wall. The inferior ST elevation likely came from demand ischemia status post epinephrine with tachycardia. While ST elevation was present on the EKG this likely was a type II [place] from the tachycardia and the distal LAD lesion Preserved ejection fraction Elevated LVEDP PLAN 1. Medical management for the distal LAD stenosis. This is not clinically appropriate to revascularize 2. Patient's blood gas is more suggestive of an acute respiratory acidosis with acute respiratory failure. Will defer to pulmonology 3. Continue treatment for diastolic dysfunction 4. At this point I cannot advocate a defibrillator as I do not believe patient experienced sudden cardiac secondary to a ventricular arrhythmia. While there is no pre nor post rhythm strips from the CODE BLUE the patient responded to epinephrine and chest compressions which is more suggestive of an acute respiratory failure where stimulation and bagging allowed for resuscitation Electronically signed by : Praveen Nguyễn MD 04/11/2021 13:26:47
--- NOTE | 2021-04-11 03:30 | PC.NURSE ---
Patient having difficulties with cough and restlessness this shift. HS cough medicine was ineffective and patient requesting something more. Dr Rick contacted and orders received. Patient given medication then shortly after calls out and states he feels his throat is swelling. Denies shortness of breath. no resp distress or stridor noted. VSS. Visually noted soft tissue swelling to jaw line, mostly on left side. No lip or tongue swelling. Dr. Rick updated and stops guaifenesin and orders benadryl. Med was given and patient instructed to notify staff immediately if shortness of breath occurs or other symptoms.
[2021-04-11 05:37] LABS: POC Glucose,Bedside 166 (70-110)
[2021-04-11 05:37] LABS: POC Glucose,Bedside 56 (70-110)
[2021-04-11 07:25] LABS: POC Glucose,Bedside 152 (70-110)
--- NOTE | 2021-04-11 07:47 | PC.NURSE ---
Patient rested poorly through night. Had one episode of hypoglycemia, treated with PO snacks. Continues to cough frequently and not getting rest. Swelling to jaw/throat area remains. No resp distress noted.
--- NOTE | 2021-04-11 09:02 | HMH.ACPN2 ---
Internal Medicine - PN: Subj *Date: 04/11/21 *Time: 09:02 Interval history: Patient states he was feeling better until he took some cough syrup in the middle of the night. He immediately had some swelling in his throat his tongue and his gums. A Benadryl was ordered which did not seem to help. He denies any shortness of breath this morning and also denies any pain. His only complaint is the swelling in his mouth. He states his gums are so swollen he can even get his teeth in. He also cannot stick his tongue out of his mouth due to the swelling. Exam Vital signs and Labs for Last 24 Hours: Temp Pulse Resp BP Pulse Ox 98.2 F 86 18 177/91 H 93 L 04/11/21 07:40 04/11/21 07:40 04/11/21 07:40 04/11/21 07:40 04/11/21 07:40 Laboratory Results - last 24 hr 04/10/21 11:22: POC Glucose 166 H 04/10/21 15:26: POC Glucose 118 H 04/10/21 20:49: POC Glucose 288 H 04/11/21 04:40: POC Glucose 56 L 04/11/21 05:28: POC Glucose 166 H 04/11/21 06:59: POC Glucose 152 H I & O for Last 24 hours: Intake & Output 04/08/21 04/09/21 04/10/21 04/11/21 11:59 11:59 11:59 11:59 Intake Total 480 / 480 1200 / 1200 990 / 990 Balance 480 / 480 1200 / 1200 990 / 990 Weight 222 lb 2 oz 219 lb 2.937 oz 219 lb 3.995 oz - Constitutional no acute distress - *Routine HEENT Exam Head: Present: normocephalic Eye: Present: EOMI, PERRL ENT: Present: mucous membranes moist, other (Tongue and gums are swollen) - *Routine Respiratory Exam Present: decreased breath sounds, wheezes - *Routine Cardiovascular Exam Present: RRR - *Routine Abdominal Exam Present: soft, normoactive bowel sounds. Absent: tenderness - *Routine Extremities Exam Present: edema. Absent: cyanosis, clubbing - *Routine Skin Exam Present: warm. Absent: rash - *Routine Neurological Exam Present: alert, oriented X3 Assessment and Plan (1) Acute exacerbation of chronic obstructive airways disease Status: Acute Category: Medical Code(s): J44.1 - Chronic obstructive pulmonary disease with (acute) exacerbation (2) CAD (coronary artery disease) Status: Acute Category: Medical Code(s): I25.10 - Atherosclerotic heart disease of [place] coronary artery without angina pectoris (3) COPD (chronic obstructive pulmonary disease) Status: Acute Category: Medical Code(s): J44.9 - Chronic obstructive pulmonary disease, unspecified (4) DM type 2 (diabetes mellitus, type 2) Status: Acute Qualifiers: 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 insulin use status Diabetes mellitus complication status: with other specified complication Qualified Code(s): E11.69 - Type 2 diabetes mellitus with other specified complication Category: Medical Code(s): E11.9 - Type 2 diabetes mellitus without complications (5) Deep vein thrombosis (DVT) of popliteal vein of left lower extremity Status: Acute Category: Medical Code(s): I82.432 - Acute embolism and thrombosis of left popliteal vein (6) Diastolic dysfunction Status: Acute Category: Medical Code(s): I51.89 - Other ill-defined heart diseases (7) Edema Status: Acute Category: Medical Code(s): R60.9 - Edema, unspecified (8) HLD (hyperlipidemia) Status: Acute Category: Medical Code(s): E78.5 - Hyperlipidemia, unspecified (9) HTN (hypertension) Status: Acute Category: Medical Code(s): I10 - Essential (primary) hypertension (10) PNA (pneumonia) Status: Acute Qualifiers: Pneumonia type: due to unspecified organism Laterality: bilateral Lung location: lower lobe of lung Qualified Code(s): J18.9 - Pneumonia, unspecified organism Category: Medical Code(s): J18.9 - Pneumonia, unspecified organism (11) Pulmonary embolism Status: Acute Category: Medical Code(s): I26.99 - Other pulmonary embolism without acute cor pulmonale (12) Pulmonary hypertension Status: Acute Category: Medical Code(s): I27.20 - Pulmonar
--- NOTE | 2021-04-11 09:23 | HMH.PULMPN ---
Internal Medicine - PN: Subj *Date: 04/11/21 *Time: 11:32 Interval history: No acute respiratory events overnight. Patient admits continued improvement in his symptoms. Exam - Constitutional Constitutional:: Present: no acute distress, comfortable - HENMT Exam HENMT: Present: normocephalic, atraumatic - Eye Exam Eyes:: Present: normal appearance both eyes and related structures - Neck Exam Neck:: Present: normal visual inspection - Respiratory Exam Respiratory:: Present: able to speak in complete sentences, no respiratory distress. Absent: wheezing - Cardiovascular Exam Cardiac:: Present: S1, S2 - GI Exam GI:: Present: soft - Skin Exam Skin: Present: warm, no rash - Neurological Exam Neurological: Present: alert, awake, normal cognition - Extremities Exam Extremities: Present: no cyanosis, no clubbing, no edema Assessment and Plan (1) Acute exacerbation of chronic obstructive airways disease Status: Acute Category: Medical Code(s): J44.1 - Chronic obstructive pulmonary disease with (acute) exacerbation (2) CAD (coronary artery disease) Status: Acute Category: Medical Code(s): I25.10 - Atherosclerotic heart disease of [place] coronary artery without angina pectoris (3) COPD (chronic obstructive pulmonary disease) Status: Acute Category: Medical Code(s): J44.9 - Chronic obstructive pulmonary disease, unspecified (4) DM type 2 (diabetes mellitus, type 2) Status: Acute Qualifiers: 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: unspecified 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 marine oil terminal insulin use status Diabetes mellitus complication status: with other specified complication Qualified Code(s): E11.69 - Type 2 diabetes mellitus with other specified complication Category: Medical Code(s): E11.9 - Type 2 diabetes mellitus without complications (5) Deep vein thrombosis (DVT) of popliteal vein of left lower extremity Status: Acute Category: Medical Code(s): I82.432 - Acute embolism and thrombosis of left popliteal vein (6) Diastolic dysfunction Status: Acute Category: Medical Code(s): I51.89 - Other ill-defined heart diseases (7) Edema Status: Acute Category: Medical Code(s): R60.9 - Edema, unspecified (8) HLD (hyperlipidemia) Status: Acute Category: Medical Code(s): E78.5 - Hyperlipidemia, unspecified (9) HTN (hypertension) Status: Acute Category: Medical Code(s): I10 - Essential (primary) hypertension (10) PNA (pneumonia) Status: Acute Qualifiers: Pneumonia type: due to unspecified organism Laterality: bilateral Lung location: lower lobe of lung Qualified Code(s): J18.9 - Pneumonia, unspecified organism Category: Medical Code(s): J18.9 - Pneumonia, unspecified organism (11) Pulmonary embolism Status: Acute Category: Medical Code(s): I26.99 - Other pulmonary embolism without acute cor pulmonale (12) Pulmonary hypertension Status: Acute Category: Medical Code(s): I27.20 - Pulmonary hypertension, unspecified (13) Renal insufficiency Status: Acute Category: Medical Code(s): N28.9 - Disorder of kidney and ureter, unspecified (14) Allergic reaction caused by a drug Status: Acute Category: Medical Code(s): T78.40XA - Allergy, unspecified, initial encounter - Assessment and plan all Dx Assessment and Plan for all problems:: #COPD exacerbation: #H/OPulmonary embolism: 81 y/o male recently admitted to the hospital respiratory failure found to have pulmonary embolism started on anticoagulation, also had a right heart cath from diagnosis pulmonary hypertension group 2 areas with improvement in symptoms presented to the hospital again worsening respiratory status and pulmonary was called for further management. 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 Patient during his most recent visit received ceftriaxone & azithromycin. Physical examination significantly improved volume status a
--- NOTE | 2021-04-11 12:42 | ECG_ITS ---
APPROVED REPORT Exam: Resting ECG HR:141 bpm ECG Measurements Heart Rate 141 AXES LA 152 P 79 QRSd 88 QRS 17 QT 268 T 70 QTc 410 Conclusion Sinus tachycardia with premature supraventricular complexes with occasional premature ventricular complexes and fusion complexes Possible Left atrial enlargement ST elevation, consider inferolateral injury or acute infarct ACUTE HI Abnormal ECG Electronically signed by : Benny Delgado MD 04/12/2021 09:25:05
[2021-04-11 13:02] LABS: ABG Base Excess -6.4 mmol/L (-2.4-2.3); ABG HCO3 24.8 mmhg (22.0-26.0); ABG Oxygen Saturation 100 % (90-100); ABG PO2 294.4 mmhg (80-100); ABG TCO2 27.9 mmhg (23-27)
[2021-04-11 13:03] LABS: Allen's Test Patient Unable; Source Left Radial
[2021-04-11 13:04] LABS: ABG PCO2 100.9 mmhg (35.0-45.0); ABG PH 7.01 mmol/L (7.35-7.45)
--- NOTE | 2021-04-11 13:38 | HMH.PNCARD ---
Subjective Date: 04/11/21 Time: 13:00 Principal diagnosis: cardiac arrest Interval history: Cardiology responded when CODE BLUE was called on patient's room. Nursing staff states patient was ambulating from chair to bed when he started to complain of increased shortness of breath then fell onto the bed. Nursing staff states at that time they called a CODE BLUE. Found that the patient was pulseless and started CPR. Patient was not initially hooked up to a diamond die maker at the time during this episode. Uncertain as to arrhythmia patient was then. Patient was given 1 epi IV per ED physician. EKG revealed anterior NC. Patient began to respond. Patient was breathing on his own. Dr. Nguyễn was notified of the EKG. Patient was transported to the [facility] for immediate left heart catheterization. Left heart catheterization revealed coronary artery disease. Severe stenosis of the distal LAD involving and up around LAD which supplies the inferior wall. The inferior ST elevation likely came from demand ischemia status post epinephrine with tachycardia. While ST elevation was present on the EKG this likely was a type II NC from the tachycardia from the distal LAD lesion. Preserved ejection fraction noted elevated LVEDP. Medical management of the distal LAD stenosis. This is not clinically appropriate to revascularize. Patient's blood gas is more suggestive of an acute respiratory acidosis with acute respiratory failure. This will be deferred to pulmonology. Patient is currently being treated for diastolic dysfunction and will need to continue his diuretic therapy. Note from 04/09/21: This is an 85-year-old patient male admitted with worsening shortness of breath. Patient states he was discharged from this facility on 04/05/2021 after being diagnosed with pulmonary embolus and pneumonia. Patient is currently taking Xarelto 15 mg p.o. twice daily due to PE. Patient does have history of pulmonary hypertension. Pt underwent right cardiac catheterization 03/25 which revealed moderate pulmonary hypertension secondary to left ventricular diastolic dysfunction. Pulmonary hypertension is most likely all secondary to hypertensive heart disease. Elevated pressures are reactive and with treatment of diastolic dysfunction with diuretics and better blood pressure control his pulmonary pressures will likely decrease. Chest x-ray revealed increased bilateral lower pulmonary interstitial and peribronchial thickening compared with prior chest x-ray on 04/01/2021 which was concerning for bronchitis and interstitial pneumonia. Chronic emphysema was noted on the left. Patient states he just felt like he cannot catch his breath at home. Patient states he was unable to do his daily activities due to the shortness of breath becoming worse. Patient does complain of a dry hacking cough. [facility]:ANGIOGRAPHIC RESULTS The left main artery Has an eccentric 10 to 20% stenosis The left anterior descending artery Has proximal 10 to 20% luminal irregularities followed by lesion which starts in the proximal segment and extends into the mid segment which is long and calcified with no greater than 30 to 40% stenosis. There is an additional mid vessel focal 40 to 50% stenosis with a distal 90% stenosis as the LAD wraps the apex and supplies the inferior wall The circumflex artery Is a dominant vessel and has proximal 20 to 30% stenoses with mid vessel 30% stenoses. First obtuse marginal artery has a proximal and mid vessel 30 to 40% stenosis while the second obtuse marginal artery has a mid vessel 40% stenosis. The right coronary artery Small nondominant normal The GARCIA ventriculogram reveals Preserved at 50% The left ventricular end-diastolic pressure Elevated at 30 mmHg IMPRESSION Coronary disease as described above Severe stenosis in the distal LAD involving a wraparound LAD which supplies the inferior wall. The inferior ST elevation likely came from demand ischemia st
--- NOTE | 2021-04-11 14:16 | XR_ITS ---
FINAL REPORT CLINICAL HISTORY: post code COMPARISON: April 08, 2021 FINDINGS: A single PA view of the chest was obtained. There are multiple overlying cardiac wires. The cardiac and mediastinal silhouettes are within normal limits. The lungs are clear. There is no focal infiltrate, effusion or pneumothorax. No acute osseous abnormality is identified. IMPRESSION: No radiographic evidence of acute cardiac or pulmonary disease on this single view of the chest. Reviewed, Interpreted and Dictated by Lisa Fisher MD Transcribed by Elizabeth Blake Authenticated by Lisa Fisher MD on 04/11/2021 02:55:57 PM [facility]
--- NOTE | 2021-04-11 14:17 | PC.NURSE ---
Spoke to MD Jose, new order of CXR at bedside. MD Jose would like MD James to call him when this RN gets in touch with him.
--- NOTE | 2021-04-11 14:41 | PC.NURSE ---
Per MD James- wean pt down to 2LNC and do repeat ABG when pt is on 2L
[2021-04-11 15:16] LABS: ABG Base Excess 1.2 mmol/L (-2.4-2.3); ABG HCO3 26.5 mmhg (22.0-26.0); ABG Oxygen Saturation 93 % (90-100); ABG PH 7.37 mmol/L (7.35-7.45); ABG PO2 67.4 mmhg (80-100); ABG TCO2 27.9 mmhg (23-27)
[2021-04-11 15:17] LABS: Allen's Test Acceptable
[2021-04-11 15:18] LABS: Source Left Radial
--- NOTE | 2021-04-11 16:16 | P.PN_ITS ---
Critical Care Event Note Code activated: Yes Narrative: This case had a high probability of a clinically significant, sudden, or life threatening deterioration of this patient's condition which required my full and direct attention, intervention and personal management. CODE DAVID called. Upon arrival patient is receiving CPR. Nurses report that he was being discharged today after admission for pulmonary emboli. Suddenly complained of shortness of breath and collapsed. Pulseless and CPR begun. He did not have a circulation manager on and initial rhythm is unknown. He received 1 dose of epinephrine prior to my arrival. No defibrillations. Soon after I arrived he has return of spontaneous circulation with palpable pulse. Several minutes later he regained consciousness. engineering librarian showed sinus tachycardia. Blood pressure is hypertensive after epinephrine. Pulse ox 98%. Twelve-lead EKG shows inferior injury pattern with ST elevation consistent with ST elevation MD. Cardiology is present and EKG was transmitted to Dr. Nguyễn who is taking the patient to the [facility] emergently. Critical care time: less than 30 mins [facility] Critical Care Exam Vital signs: Temp Pulse Resp BP Pulse Ox 97.4 F L 82 19 141/79 H 100 04/11/21 16:00 04/11/21 13:50 04/11/21 13:50 04/11/21 13:50 04/11/21 13:50
--- NOTE | 2021-04-11 17:55 | PC.NURSE ---
Report received from Taylor Valle RN
--- NOTE | 2021-04-11 18:31 | PC.NURSE ---
Patient admitted to ICU/STepdown
--- NOTE | 2021-04-11 18:56 | PC.NURSE ---
LATE ENTRY This RN approached pt's room d/t hearing audible grunting coming from the hallway. When this RN asked pt if anything was wrong, pt stated I can't breathe, I was walking back to bed this RN turned pt's o2 to 4L NC and pt was able to follow commands to lift his hand up for this RN to apply pulse ox. During that time o2 sat was 74%. Pt then rolled eyes to the back of his head and became pulseless. CODE BLUE as follows: 1235-pt pulseless, CODE BLUE called 1236-compressions started 1237- epi in 1240- pulse regained, pt responding and yelling out, sinus tach 135 1241- sat 98 1244-EKG read by Mohsen Atwood APRN and MD Berger [id number] 1250-MD Nguyễn notified, pt transported to [facility] 1258-Pt's notified, on her way to [facility] 1300-MD Jose notified of pt status
--- NOTE | 2021-04-11 19:10 | HMH.ACPN2 ---
Internal Medicine - PN: Subj *Date: 04/11/21 *Time: 19:10 Interval history: S: See Critical Care Note per Dr. Fountain timed 16:16. Contrary to that note, discharge was not planned today. Patient reportedly became pulsless and non breathing and CPR was initiated, with return of pulse after IV epinephrine, and subsequent return of consciousness. EKG suggested ST elevation. Dr. Nguyễn took the patient to the lab tester, which revealed normal EF and non critical coronaries (though distal LAD showed stenosis). Retrospectively it appears that the dosing of hydrocodone could have caused the respiratory arrest (given 1300 and 2100 last night and 1100 this AM). There was evident of allergic reaction last night which was attributed possibly to Guiafenesin, but now more likely seems due to the hydrocodone. He has been taking Tesselon Perles as well for c/o cough. O: At this time, the patient is stable in the ICU. He has wheezing and rales that are extensive, but review of CXR shows mild interstitial changes, not worse compared to prior CXR. He continues with leg edema at least 2+ (Verapamil related?). Exam Vital signs and Labs for Last 24 Hours: Temp Pulse Resp BP Pulse Ox 97.4 F L 80 19 141/79 H 96 04/11/21 16:00 04/11/21 19:00 04/11/21 13:50 04/11/21 13:50 04/11/21 19:00 Laboratory Results - last 24 hr 04/10/21 20:49: POC Glucose 288 H 04/11/21 04:40: POC Glucose 56 L 04/11/21 05:28: POC Glucose 166 H 04/11/21 06:59: POC Glucose 152 H 04/11/21 15:05: Specimen Source Left radial, O2 % 3.5l nc, ABG pH 7.37, ABG pCO2 47.0 H, ABG pO2 67.4 L, ABG HCO3 26.5 H, ABG Total CO2 27.9 H, ABG O2 Saturation 93, ABG Base Excess 1.2, Pedro Test Acceptable 04/11/21 : Specimen Source Left radial, O2 % Ambu 100%, ABG pH 7.01 L*, ABG pCO2 100.9 H, ABG pO2 294.4 H, ABG HCO3 24.8, ABG Total CO2 27.9 H, ABG O2 Saturation 100, ABG Base Excess -6.4 L, Pedro Test Patient unable I & O for Last 24 hours: Intake & Output 04/09/21 04/10/21 04/11/21 04/12/21 11:59 11:59 11:59 11:59 Intake Total 480 / 480 1200 / 1200 990 / 990 360 / 360 Balance 480 / 480 1200 / 1200 990 / 990 360 / 360 Weight 222 lb 2 oz 219 lb 2.937 oz 219 lb 3.995 oz Microbiology Reports for the Last 24 Hours: Microbiology 04/09/21 13:53 Sputum - Expectorated Sputum Gram Stain - Final 04/09/21 13:53 Sputum - Expectorated Sputum Sputum Culture - Preliminary Narrative: EKG at this time(1530) appears normal, without ST changes. - Constitutional no acute distress (comfortable in bed) - *Routine HEENT Exam Head: Present: normocephalic Eye: Present: EOMI, PERRL ENT: Present: mucous membranes moist - *Routine Neck Exam Present: supple, swelling (no crepitus). Absent: lymphadenopathy - *Routine Respiratory Exam Present: decreased breath sounds, rales, wheezes. Absent: respiratory distress - *Routine Abdominal Exam Present: soft, normoactive bowel sounds, obese. Absent: tenderness, mass - *Routine Extremities Exam Present: edema (2++). Absent: cyanosis, clubbing - *Routine Skin Exam Present: warm. Absent: rash - *Routine Neurological Exam Present: alert, oriented X3 Assessment and Plan (1) Acute exacerbation of chronic obstructive airways disease Status: Acute Category: Medical Code(s): J44.1 - Chronic obstructive pulmonary disease with (acute) exacerbation (2) CAD (coronary artery disease) Status: Acute Category: Medical Code(s): I25.10 - Atherosclerotic heart disease of [place] coronary artery without angina pectoris (3) COPD (chronic obstructive pulmonary disease) Status: Acute Category: Medical Code(s): J44.9 - Chronic obstructive pulmonary disease, unspecified (4) Deep vein thrombosis (DVT) of popliteal vein of left lower extremity Status: Acute Category: Medical Code(s): I82.432 - Acute embolism and thrombosis of left popliteal vein (5) Diastolic dysfunction Status: Acute Category: Medical Code(
--- NOTE | 2021-04-11 19:13 | PC.NURSE ---
MD MARIELLA at bedside. RN notified MD no post code labs drawn. STAT BMP, CBC and EKG ordered. Patient continues to wheeze. Provider aware.
--- NOTE | 2021-04-11 19:37 | PC.NURSE ---
pt oxygen saturations 97% on 4LNC, turned pt to 3LNC and oxygen saturation 96%
[2021-04-11 20:19] LABS: Basophils # 0.1 K/mm3 (0-0.2); Basophils % 0.5 % (0.1-2.0); Eosinophils # 0.1 K/mm3 (0.0-0.4); Eosinophils % 0.4 % (0.1-12.0); Hematocrit 45.9 % (42.0-52.0); Hemoglobin 14.6 g/dL (14.1-18.0); Lymphocytes # 0.6 K/mm3 (0.7-4.5); Lymphocytes % 3.8 % (10-50); Mean Corpuscular HGB Conc 31.9 g/dL (31.8-35.4); Mean Corpuscular Hemoglobin 28.3 pg (27.0-31.2); Mean Corpuscular Volume 88.7 fl (80-94); Mean Platelet Volume 7.5 fl (7.4-10.4); Monocytes # 0.5 K/mm3 (0.1-1.0); Monocytes % 3.5 % (1.7-9.3); Neutrophils # 13.2 K/mm3 (1.8-7.8); Neutrophils % 91.8 % (37.0-80.0); Platelet Count 262 K/mm3 (142-424); Red Blood Count 5.17 M/mm3 (4.60-6.20); Red Cell Distribution Width 15.9 % (11.5-17.5); White Blood Count 14.3 K/mm3 (4.8-10.8)
--- NOTE | 2021-04-11 20:20 | PC.NURSE ---
observed pt's tongue reddened, purple, and petechial areas, pt's lower palate above and behind lower gumline swollen and looks like giant clot but is pt's tissue; took pictures with pt's permission and placed wound note; pt's submental area swollen and hard; area of shoulders where neck meets shoulders is swollen and sac like bilaterally; bilateral toes dusky and dry
[2021-04-11 20:24] LABS: MANUAL DIFFERENTIAL MANUAL DIFFERENTIAL (MANUAL DIFF)
[2021-04-11 20:26] LABS: Chloride 89 mmol/L (98-107); Sodium 132 mmol/L (136-145)
[2021-04-11 20:27] LABS: Potassium 4.4 mmoL/L (3.5-5.1)
[2021-04-11 20:29] LABS: Blood Urea Nitrogen 45 mg/dl (9-20); Creatinine Clearance Estimated 43 mL/min (50-200); Estimated Glomerular Filt Rate 36 ml/min (>60); GFR (African American) 44 ML/MIN (>60)
[2021-04-11 20:30] LABS: Anion Gap 15.4 mEq/L (5-15); Calcium 8.5 mg/dl (8.4-10.2); Carbon Dioxide 32 mmol/L (22.0-30.0); Glucose 88 mg/dl (74-100)
[2021-04-11 20:47] LABS: Hypochromasia 1+; Lymphocytes % 5 % (10-50); Monocytes % 2 % (2-9); Neutrophils % 86 % (42-76); Platelet Estimate Normal; Total Cells Counted 100
[2021-04-11 21:10] LABS: POC Glucose,Bedside 97 (70-110)
[2021-04-12] VITALS (14 sets, daily range): BP systolic 101–155; BP diastolic 64–94; PULSE 70–88; RESP 20–37; TEMP 36.3–36.7; O2SAT 92–98; BMI 32.6
[2021-04-12 04:20] LABS: POC Glucose,Bedside 158 (70-110)
[2021-04-12 08:34] LABS: POC Glucose,Bedside 254 (70-110)
--- NOTE | 2021-04-12 13:45 | HMH.ACPN2 ---
Internal Medicine - PN: Subj *Date: 04/12/21 *Time: 13:45 Interval history: The patient was seen this morning on rounds. He is better, stayed stable through the night. Has trouble breathing when in bed and slept in recliner. Wants OUT of ICU. Exam Vital signs and Labs for Last 24 Hours: Temp Pulse Resp BP Pulse Ox 97.4 F L 73 22 138/78 92 L 04/12/21 00:00 04/12/21 12:00 04/12/21 08:00 04/12/21 06:00 04/12/21 08:00 Laboratory Results - last 24 hr 04/11/21 15:05: Specimen Source Left radial, O2 % 3.5l nc, ABG pH 7.37, ABG pCO2 47.0 H, ABG pO2 67.4 L, ABG HCO3 26.5 H, ABG Total CO2 27.9 H, ABG O2 Saturation 93, ABG Base Excess 1.2, Pedro Test Acceptable 04/11/21 19:58: WBC 14.3 H D, RBC 5.17, Hgb 14.6, Hct 45.9, MCV 88.7, MCH 28.3, MCHC 31.9, RDW 15.9, Plt Count 262, MPV 7.5, Neut % (Auto) 91.8 H, Lymph % (Auto) 3.8 L, [place] % (Auto) 3.5, Eos % (Auto) 0.4, Baso % (Auto) 0.5, Neut # (Auto) 13.2 H, Lymph # (Auto) 0.6 L, [place] # (Auto) 0.5, Eos # (Auto) 0.1, Baso # (Auto) 0.1, Total Counted 100, Neutrophils % (Manual) 86 H, Band Neutrophils % 7.0, Lymphocytes % (Manual) 5 L, Monocytes % (Manual) 2, Platelet Estimate Normal, Hypochromasia 1+ 04/11/21 19:58: Sodium 132 L, Potassium 4.4, Chloride 89 L, Carbon Dioxide 32 H, Anion Gap 15.4 H, BUN 45 H D, Creatinine 1.80 H D, Estimated Creat Clear 43, Estimated GFR 36 L, Est GFR ( Amer) 44 L D, Glucose 88, Calcium 8.5 04/11/21 20:18: POC Glucose 97 04/12/21 04:13: POC Glucose 158 H 04/12/21 08:26: POC Glucose 254 H I & O for Last 24 hours: Intake & Output 04/10/21 04/11/21 04/12/21 04/13/21 11:59 11:59 11:59 11:59 Intake Total 1200 / 1200 990 / 990 1320 / 1320 120 / 120 Output Total 950 / 950 Balance 1200 / 1200 990 / 990 370 / 370 120 / 120 Weight 219 lb 2.937 oz 219 lb 3.995 oz 215 lb 6.971 oz Microbiology Reports for the Last 24 Hours: Microbiology 04/09/21 13:53 Sputum - Expectorated Sputum Gram Stain - Final 04/09/21 13:53 Sputum - Expectorated Sputum Sputum Culture - Preliminary - Constitutional no acute distress - *Routine HEENT Exam Head: Present: normocephalic Eye: Present: EOMI, PERRL ENT: Present: mucous membranes moist (bruising of the mandibular gingiva noted) - *Routine Neck Exam Present: supple. Absent: JVD, lymphadenopathy - *Routine Respiratory Exam Present: wheezes (are less prominent, moving air better). Absent: respiratory distress - *Routine Cardiovascular Exam Present: RRR, ectopic (occasional PVC) - *Routine Abdominal Exam Present: soft, normoactive bowel sounds, obese. Absent: tenderness - *Routine Extremities Exam Present: edema (better). Absent: cyanosis, clubbing - *Routine Skin Exam Present: warm. Absent: rash - *Routine Neurological Exam Present: alert, oriented X3 Assessment and Plan (1) Acute exacerbation of chronic obstructive airways disease Status: Acute Category: Medical Code(s): J44.1 - Chronic obstructive pulmonary disease with (acute) exacerbation (2) CAD (coronary artery disease) Status: Acute Category: Medical Code(s): I25.10 - Atherosclerotic heart disease of [place] coronary artery without angina pectoris (3) COPD (chronic obstructive pulmonary disease) Status: Acute Category: Medical Code(s): J44.9 - Chronic obstructive pulmonary disease, unspecified (4) Deep vein thrombosis (DVT) of popliteal vein of left lower extremity Status: Acute Category: Medical Code(s): I82.432 - Acute embolism and thrombosis of left popliteal vein (5) Diastolic dysfunction Status: Acute Category: Medical Code(s): I51.89 - Other ill-defined heart diseases (6) PNA (pneumonia) Status: Acute Qualifiers: Pneumonia type: due to unspecified organism Laterality: bilateral Lung location: lower lobe of lung Qualified Code(s): J18.9 - Pneumonia, unspecified organism Category: Medical Code(s): J18.9 - Pneumonia, unspecified organism (7) DM type 2 (d
[2021-04-12 15:02] LABS: Basophils % 0.3 % (0.1-2.0); Eosinophils % 0.1 % (0.1-12.0); Hematocrit 40.4 % (42.0-52.0); Hemoglobin 13.3 g/dL (14.1-18.0); Lymphocytes # 0.9 K/mm3 (0.7-4.5); Lymphocytes % 6.6 % (10-50); Mean Corpuscular HGB Conc 32.9 g/dL (31.8-35.4); Mean Corpuscular Hemoglobin 28.6 pg (27.0-31.2); Mean Corpuscular Volume 86.9 fl (80-94); Mean Platelet Volume 7.8 fl (7.4-10.4); Monocytes # 0.7 K/mm3 (0.1-1.0); Monocytes % 4.7 % (1.7-9.3); Neutrophils # 12.5 K/mm3 (1.8-7.8); Neutrophils % 88.3 % (37.0-80.0); Platelet Count 260 K/mm3 (142-424); Red Blood Count 4.66 M/mm3 (4.60-6.20); Red Cell Distribution Width 15.9 % (11.5-17.5); White Blood Count 14.2 K/mm3 (4.8-10.8)
[2021-04-12 15:08] LABS: MANUAL DIFFERENTIAL MANUAL DIFFERENTIAL (MANUAL DIFF)
[2021-04-12 15:27] LABS: Anion Gap 12.1 mEq/L (5-15); Blood Urea Nitrogen 61 mg/dl (9-20); Calcium 8.9 mg/dl (8.4-10.2); Carbon Dioxide 31 mmol/L (22.0-30.0); Chloride 87 mmol/L (98-107); Creatinine Clearance Estimated 36 mL/min (50-200); Estimated Glomerular Filt Rate 30 ml/min (>60); GFR (African American) 37 ML/MIN (>60); Glucose 185 mg/dl (74-100); Potassium 5.1 mmoL/L (3.5-5.1); Sodium 125 mmol/L (136-145)
--- NOTE | 2021-04-12 15:34 | PC.NURSE ---
Patient removed from step down to med-surg; report given to Pennie Peterson RN
[2021-04-12 15:54] LABS: Lymphocytes % 8 % (10-50); Monocytes % 4 % (2-9); Neutrophils % 88 % (42-76); Platelet Estimate Normal; RBC Morphology Normal; Total Cells Counted 100
[2021-04-12 16:15] LABS: POC Glucose,Bedside 174 (70-110)
[2021-04-12 20:49] LABS: POC Glucose,Bedside 173 (70-110)
[2021-04-13] VITALS (12 sets, daily range): BP systolic 97–146; BP diastolic 57–73; PULSE 69–92; RESP 16–24; TEMP 36.4–36.7; O2SAT 93–97; BMI 32.5
[2021-04-13 00:23] LABS: POC Glucose,Bedside 87 (70-110)
[2021-04-13 05:20] LABS: POC Glucose,Bedside 103 (70-110)
--- NOTE | 2021-04-13 05:53 | PC.NURSE ---
No acute changes. Pt has tolerated 3 L nc well with sats in mid 90s. Pt has c/o lateral chest pain that is eased with tylenol. Pt has also c/o a mild sore throat. White blisters present in back of throat and back of tongue on examination. No other complaints thus far. Call santizo in reach.
[2021-04-13 07:30] LABS: Basophils % 0.2 % (0.1-2.0); Hematocrit 40.1 % (42.0-52.0); Hemoglobin 13.1 g/dL (14.1-18.0); Lymphocytes # 1.2 K/mm3 (0.7-4.5); Lymphocytes % 8.2 % (10-50); Mean Corpuscular HGB Conc 32.7 g/dL (31.8-35.4); Mean Corpuscular Hemoglobin 28.4 pg (27.0-31.2); Mean Platelet Volume 7.7 fl (7.4-10.4); Monocytes # 0.8 K/mm3 (0.1-1.0); Monocytes % 5.2 % (1.7-9.3); Neutrophils # 12.6 K/mm3 (1.8-7.8); Neutrophils % 86.4 % (37.0-80.0); Platelet Count 258 K/mm3 (142-424); Red Blood Count 4.61 M/mm3 (4.60-6.20); Red Cell Distribution Width 15.9 % (11.5-17.5); White Blood Count 14.6 K/mm3 (4.8-10.8)
[2021-04-13 07:34] LABS: MANUAL DIFFERENTIAL MANUAL DIFFERENTIAL (MANUAL DIFF)
[2021-04-13 07:43] LABS: Anion Gap 11.1 mEq/L (5-15); Blood Urea Nitrogen 74 mg/dl (9-20); Carbon Dioxide 34 mmol/L (22.0-30.0); Chloride 86 mmol/L (98-107); Creatinine Clearance Estimated 32 mL/min (50-200); Estimated Glomerular Filt Rate 26 ml/min (>60); GFR (African American) 31 ML/MIN (>60); Glucose 71 mg/dl (74-100); Potassium 4.1 mmoL/L (3.5-5.1); Sodium 127 mmol/L (136-145)
[2021-04-13 08:25] LABS: POC Glucose,Bedside 109 (70-110)
[2021-04-13 09:37] LABS: Lymphocytes % 7 % (10-50); Monocytes % 3 % (2-9); Neutrophils % 89 % (42-76); Platelet Estimate Normal; RBC Morphology Normal; Total Cells Counted 100
[2021-04-13 11:42] LABS: POC Glucose,Bedside 107 (70-110)
--- NOTE | 2021-04-13 13:12 | HMH.ACPN2 ---
Internal Medicine - PN: Subj *Date: 04/13/21 *Time: 13:12 Interval history: He actually looks better today. He still sitting up in a chair but he is breathing easier and appears to try to doze off. When awake he is alert and seems oriented. His lungs definitely sound clearer. Exam Vital signs and Labs for Last 24 Hours: Temp Pulse Resp BP Pulse Ox 97.8 F 72 23 121/67 95 04/13/21 12:00 04/13/21 12:00 04/13/21 12:00 04/13/21 12:00 04/13/21 12:00 Laboratory Results - last 24 hr 04/12/21 14:48: WBC 14.2 H, RBC 4.66, Hgb 13.3 L, Hct 40.4 L, MCV 86.9, MCH 28.6, MCHC 32.9, RDW 15.9, Plt Count 260, MPV 7.8, Neut % (Auto) 88.3 H, Lymph % (Auto) 6.6 L, [place] % (Auto) 4.7, Eos % (Auto) 0.1, Baso % (Auto) 0.3, Neut # (Auto) 12.5 H, Lymph # (Auto) 0.9, [place] # (Auto) 0.7, Eos # (Auto) 0.0, Baso # (Auto) 0.0, Total Counted 100, Neutrophils % (Manual) 88 H, Lymphocytes % (Manual) 8 L, Monocytes % (Manual) 4, Platelet Estimate Normal, RBC Morphology Normal 04/12/21 14:48: Sodium 125 L, Potassium 5.1, Chloride 87 L, Carbon Dioxide 31 H, Anion Gap 12.1, BUN 61 H D, Creatinine 2.10 H, Estimated Creat Clear 36, Estimated GFR 30 L, Est GFR ( Amer) 37 L, Glucose 185 H D, Calcium 8.9 04/12/21 16:03: POC Glucose 174 H 04/12/21 20:35: POC Glucose 173 H 04/13/21 00:16: POC Glucose 87 04/13/21 05:13: POC Glucose 103 04/13/21 06:04: WBC 14.6 H, RBC 4.61, Hgb 13.1 L, Hct 40.1 L, MCV 87.0, MCH 28.4, MCHC 32.7, RDW 15.9, Plt Count 258, MPV 7.7, Neut % (Auto) 86.4 H, Lymph % (Auto) 8.2 L, [place] % (Auto) 5.2, Eos % (Auto) 0.0 L, Baso % (Auto) 0.2, Neut # (Auto) 12.6 H, Lymph # (Auto) 1.2, [place] # (Auto) 0.8, Eos # (Auto) 0.0, Baso # (Auto) 0.0, Total Counted 100, Neutrophils % (Manual) 89 H, Band Neutrophils % 1.0, Lymphocytes % (Manual) 7 L, Monocytes % (Manual) 3, Platelet Estimate Normal, RBC Morphology Normal 04/13/21 06:04: Sodium 127 L, Potassium 4.1, Chloride 86 L, Carbon Dioxide 34 H, Anion Gap 11.1, BUN 74 H, Creatinine 2.40 H, Estimated Creat Clear 32, Estimated GFR 26 L, Est GFR ( Amer) 31 L, Glucose 71 L D, Calcium 9.0 04/13/21 08:16: POC Glucose 109 04/13/21 11:01: POC Glucose 107 I & O for Last 24 hours: Intake & Output 04/11/21 04/12/21 04/13/21 04/14/21 11:59 11:59 11:59 11:59 Intake Total 990 / 990 1320 / 1320 480 / 480 240 / 240 Output Total 950 / 950 600 / 600 Balance 990 / 990 370 / 370 -120 / -120 240 / 240 Weight 219 lb 3.995 oz 215 lb 6.971 oz 214 lb 6.4 oz Microbiology Reports for the Last 24 Hours: Microbiology 04/09/21 13:53 Sputum - Expectorated Sputum Gram Stain - Final 04/09/21 13:53 Sputum - Expectorated Sputum Sputum Culture - Preliminary Yeast - Constitutional no acute distress - *Routine HEENT Exam Head: Present: normocephalic Eye: Present: EOMI, PERRL ENT: Present: mucous membranes moist - *Routine Neck Exam Present: supple, swelling (And ecchymoses from the resuscitation.). Absent: lymphadenopathy - *Routine Respiratory Exam Present: decreased breath sounds (Wheezing has decreased dramatically. Air movement is better.). Absent: CTA bilaterally - *Routine Cardiovascular Exam Present: RRR - *Routine Abdominal Exam Present: soft, normoactive bowel sounds, obese. Absent: tenderness - *Routine Extremities Exam Present: edema (2+). Absent: cyanosis, clubbing - *Routine Skin Exam Present: warm, ecchymosis (Of the anterior neck area). Absent: rash - *Routine Neurological Exam Present: oriented X3. Absent: alert (Drowsy but interacting with family.) Assessment and Plan (1) Acute exacerbation of chronic obstructive airways disease Status: Acute Category: Medical Code(s): J44.1 - Chronic obstructive pulmonary disease with (acute) exacerbation (2) CAD (coronary artery disease) Status: Acute Category: Medical Code(s): I25.10 - Atherosclerotic heart disease of [place] coronary artery without angina pectoris (3) COPD (chroni
[2021-04-13 17:52] LABS: POC Glucose,Bedside 215 (70-110)
[2021-04-13 21:57] LABS: POC Glucose,Bedside 197 (70-110)
[2021-04-14] VITALS (11 sets, daily range): BP systolic 112–156; BP diastolic 47–79; PULSE 59–88; RESP 16–24; TEMP 36.2–37.1; O2SAT 93–99; BMI 33.0
[2021-04-14 06:02] LABS: Basophils % 0.2 % (0.1-2.0); Eosinophils % 0.1 % (0.1-12.0); Hematocrit 35.3 % (42.0-52.0); Hemoglobin 11.3 g/dL (14.1-18.0); Lymphocytes # 1.1 K/mm3 (0.7-4.5); Mean Corpuscular HGB Conc 31.9 g/dL (31.8-35.4); Mean Corpuscular Volume 87.8 fl (80-94); Mean Platelet Volume 8.2 fl (7.4-10.4); Monocytes # 0.6 K/mm3 (0.1-1.0); Monocytes % 5.6 % (1.7-9.3); Neutrophils # 8.9 K/mm3 (1.8-7.8); Platelet Count 223 K/mm3 (142-424); Red Blood Count 4.03 M/mm3 (4.60-6.20); Red Cell Distribution Width 15.7 % (11.5-17.5); White Blood Count 10.6 K/mm3 (4.8-10.8)
[2021-04-14 06:14] LABS: Anion Gap 10.4 mEq/L (5-15); Calcium 8.7 mg/dl (8.4-10.2); Carbon Dioxide 34 mmol/L (22.0-30.0); Chloride 84 mmol/L (98-107); Creatinine Clearance Estimated 35 mL/min (50-200); Estimated Glomerular Filt Rate 29 ml/min (>60); GFR (African American) 35 ML/MIN (>60); Glucose 119 mg/dl (74-100); Potassium 4.4 mmoL/L (3.5-5.1); Sodium 124 mmol/L (136-145)
[2021-04-14 07:21] LABS: Blood Urea Nitrogen 81 mg/dl (9-20)
--- NOTE | 2021-04-14 07:33 | PC.NURSE ---
NOTIFIED DR WOLFF OF CRITICAL BUN @1944
--- NOTE | 2021-04-14 08:18 | PC.NURSE ---
Pt noted to be weak and confused t/o night. Pt needing 2x assist to stand and transfer from chair to bed while pt was standby assist during prior shift. Pt will continuously call out for help and moan in pain but when asked what he needs or if he is having pain, he will say no. Pt would wake from sleep and pull off all his bandages/dressings causing bleeding Skin tears noted on bilateral forearms. Pt would also remove oxygen and would desat down to mid 80s. Pt has been cleaned up and dressings and oxygen have been reapplied multiple times. Pt refused to get into bed/bariatric chair and only wanted to sit in recliner. Pt has been encouraged to keep oxygen on and use call light. Call light within reach.
--- NOTE | 2021-04-14 08:28 | HMH.ACPN2 ---
Internal Medicine - PN: Subj *Date: 04/14/21 *Time: 08:28 Interval history: Patient states he has difficulty eating and swallowing. His mouth and throat are sore. Denies shortness of breath. Lower chest pain with any deep breathing and coughing. He sits up in the chair. He states his bottom is sore. He remains on nasal oxygen at 3 L/min with satisfactory O2 sats. Nursing states he seems to be confused at times. He calls out and then does not know what he needs. Patient states he sleeps but nursing states he does not sleep. They feel he is afraid to sleep. Laboratory data this morning show normal white blood cell count at 10,600 with a hemoglobin of 11.3 and hematocrit of 35.3. Blood chemistries show low sodium at 124 and potassium of 4.4. BUN is 81 and creatinine is 2.2. Exam Vital signs and Labs for Last 24 Hours: Temp Pulse Resp BP Pulse Ox 97.2 F L 75 20 132/67 95 04/14/21 04:00 04/14/21 05:45 04/14/21 04:00 04/14/21 04:00 04/14/21 05:45 Laboratory Results - last 24 hr 04/13/21 06:04: Total Counted 100, Neutrophils % (Manual) 89 H, Band Neutrophils % 1.0, Lymphocytes % (Manual) 7 L, Monocytes % (Manual) 3, Platelet Estimate Normal, RBC Morphology Normal 04/13/21 11:01: POC Glucose 107 04/13/21 16:48: POC Glucose 215 H 04/13/21 21:45: POC Glucose 197 H 04/14/21 05:31: WBC 10.6 D, RBC 4.03 L, Hgb 11.3 L D, Hct 35.3 L, MCV 87.8, MCH 28.0, MCHC 31.9, RDW 15.7, Plt Count 223, MPV 8.2, Neut % (Auto) 84.0 H, Lymph % (Auto) 10.0, [place] % (Auto) 5.6, Eos % (Auto) 0.1, Baso % (Auto) 0.2, Neut # (Auto) 8.9 H, Lymph # (Auto) 1.1, [place] # (Auto) 0.6, Eos # (Auto) 0.0, Baso # (Auto) 0.0 04/14/21 05:31: Sodium 124 L, Potassium 4.4, Chloride 84 L, Carbon Dioxide 34 H, Anion Gap 10.4, BUN 81 H, Creatinine 2.20 H, Estimated Creat Clear 35, Estimated GFR 29 L, Est GFR ( Amer) 35 L, Glucose 119 H D, Calcium 8.7 I & O for Last 24 hours: Intake & Output 04/11/21 04/12/21 04/13/21 04/14/21 11:59 11:59 11:59 11:59 Intake Total 990 / 990 1320 / 1320 480 / 480 240 / 240 Output Total 950 / 950 600 / 600 1600 / 1600 Balance 990 / 990 370 / 370 -120 / -120 -1360 / -1360 Weight 219 lb 3.995 oz 215 lb 6.971 oz 214 lb 6.4 oz 218 lb Microbiology Reports for the Last 24 Hours: Microbiology 04/09/21 13:53 Sputum - Expectorated Sputum Gram Stain - Final 04/09/21 13:53 Sputum - Expectorated Sputum Sputum Culture - Preliminary Yeast - Constitutional no acute distress Comments: Sitting in chair at bedside. Demonstrates pain with deep inspiration and cough. - *Routine HEENT Exam ENT: Present: mucous membranes moist - *Routine Respiratory Exam Present: crackles (Bilateral bases posteriorly) - *Routine Cardiovascular Exam Present: RRR - *Routine Abdominal Exam Present: soft, normoactive bowel sounds. Absent: tenderness, distended - *Routine Extremities Exam Present: edema. Absent: calf tenderness, palpable cord - *Routine Skin Exam Present: ecchymosis (Upper chest at neck) - *Routine Neurological Exam Present: alert, normal speech Assessment and Plan (1) Acute exacerbation of chronic obstructive airways disease Status: Acute Category: Medical Code(s): J44.1 - Chronic obstructive pulmonary disease with (acute) exacerbation (2) CAD (coronary artery disease) Status: Acute Category: Medical Code(s): I25.10 - Atherosclerotic heart disease of [place] coronary artery without angina pectoris (3) COPD (chronic obstructive pulmonary disease) Status: Acute Category: Medical Code(s): J44.9 - Chronic obstructive pulmonary disease, unspecified (4) Deep vein thrombosis (DVT) of popliteal vein of left lower extremity Status: Acute Category: Medical Code(s): I82.432 - Acute embolism and thrombosis of left popliteal vein (5) Diastolic dysfunction Status: Acute Category: Medical Code(s): I51.89 - Other ill-defined heart diseases (6) PNA (
--- NOTE | 2021-04-14 09:05 | CT_ITS ---
FINAL REPORT TECHNIQUE: Axial CT images were performed through the neck. Coronal and sagittal reformats were submitted. This study was performed with techniques to keep radiation doses as low as reasonably achievable (ALARA). Individualized dose reduction techniques using automated exposure control or adjustment of mA and/or kV according to the patient's size were employed. CLINICAL HISTORY: Post Code difficulties, swelling eccymoses FINDINGS: There is anterior subcutaneous edema or hemorrhage in the lower neck and upper chest. There is no mass or adenopathy. The nasopharynx, hypopharynx and oropharynx are unremarkable. The thyroid gland is unremarkable. Limited images of the lung apices are unremarkable. IMPRESSION: Anterior subcutaneous edema or hemorrhage in the lower neck and upper chest. Reviewed, Interpreted and Dictated by Nico Villalpando III, MD Transcribed by Mert Cortes Authenticated by Nico Villalpando III, MD on 04/14/2021 01:23:48 PM [facility]
--- NOTE | 2021-04-14 09:14 | XR_ITS ---
FINAL REPORT CLINICAL HISTORY: bronchitis/pneumonia, BEST IMAGES POSSIBLE PT HAD TO BE HELD FOR XRAYS FINDINGS: 2 views of the chest were obtained . The heart is normal in size. The mediastinum is within normal limits. There are bibasilar opacities which may represent atelectasis or pneumonia. There is no pneumothorax. Osseous structures are unremarkable. IMPRESSION: No acute cardiopulmonary process. Reviewed, Interpreted and Dictated by Nico Villalpando III, MD Transcribed by Livia Bishop Authenticated by Nico Villalpando III, MD on 04/14/2021 11:41:24 AM [facility]
--- NOTE | 2021-04-14 09:31 | HMH.PULMPN ---
Internal Medicine - PN: Subj *Date: 04/14/21 *Time: 15:12 Interval history: No acute respiratory vents overnight. Patient experienced a cardiopulmonary arrest on Wednesday with return of spontaneous circulation. Exam - Constitutional Constitutional:: Absent: no acute distress, comfortable - HENMT Exam HENMT: Present: normocephalic - Eye Exam Eyes:: Present: normal appearance both eyes and related structures - Neck Exam Neck:: Present: normal visual inspection - Respiratory Exam Respiratory:: Present: able to speak in complete sentences, respiratory distress, wheezing - Cardiovascular Exam Cardiac:: Present: S1, S2 - GI Exam GI:: Present: soft - Skin Exam Skin: Present: warm - Neurological Exam Neurological: Present: alert, awake, normal cognition - Extremities Exam Extremities: Present: no cyanosis, no clubbing, edema Assessment and Plan (1) Acute exacerbation of chronic obstructive airways disease Status: Acute Category: Medical Code(s): J44.1 - Chronic obstructive pulmonary disease with (acute) exacerbation (2) CAD (coronary artery disease) Status: Acute Category: Medical Code(s): I25.10 - Atherosclerotic heart disease of [place] coronary artery without angina pectoris (3) COPD (chronic obstructive pulmonary disease) Status: Acute Category: Medical Code(s): J44.9 - Chronic obstructive pulmonary disease, unspecified (4) Deep vein thrombosis (DVT) of popliteal vein of left lower extremity Status: Acute Category: Medical Code(s): I82.432 - Acute embolism and thrombosis of left popliteal vein (5) Diastolic dysfunction Status: Acute Category: Medical Code(s): I51.89 - Other ill-defined heart diseases (6) PNA (pneumonia) Status: Acute Qualifiers: Pneumonia type: due to unspecified organism Laterality: bilateral Lung location: lower lobe of lung Qualified Code(s): J18.9 - Pneumonia, unspecified organism Category: Medical Code(s): J18.9 - Pneumonia, unspecified organism (7) DM type 2 (diabetes mellitus, type 2) Status: Acute Qualifiers: Diabetes mellitus long-term insulin use: unspecified long-term insulin use status Diabetes mellitus complication status: with other specified complication Qualified Code(s): E11.69 - Type 2 diabetes mellitus with other specified complication Category: Medical Code(s): E11.9 - Type 2 diabetes mellitus without complications (8) Pulmonary embolism Status: Acute Category: Medical Code(s): I26.99 - Other pulmonary embolism without acute cor pulmonale (9) Allergic reaction caused by a drug Status: Acute Category: Medical Code(s): T78.40XA - Allergy, unspecified, initial encounter (10) Respiratory arrest Status: Acute Category: Medical Code(s): R09.2 - Respiratory arrest (11) Pulmonary hypertension Status: Acute Category: Medical Code(s): I27.20 - Pulmonary hypertension, unspecified (12) Edema Status: Acute Category: Medical Code(s): R60.9 - Edema, unspecified (13) HTN (hypertension) Status: Acute Category: Medical Code(s): I10 - Essential (primary) hypertension (14) HLD (hyperlipidemia) Status: Acute Category: Medical Code(s): E78.5 - Hyperlipidemia, unspecified (15) Renal insufficiency Status: Acute Category: Medical Code(s): N28.9 - Disorder of kidney and ureter, unspecified - Assessment and plan all Dx Assessment and Plan for all problems:: #COPD exacerbation: #H/OPulmonary embolism: 81 y/o male recently admitted to the hospital respiratory failure found to have pulmonary embolism started on anticoagulation, also had a right heart cath from diagnosis pulmonary hypertension group 2 status post diuresis with improvement in symptoms presented to the hospital again worsening respiratory status and pulmonary was called for further management. 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 Patient during
[2021-04-14 10:57] LABS: POC Glucose,Bedside 344 (70-110)
--- NOTE | 2021-04-14 13:27 | HMH.PTEV ---
Physical Therapy Evaluation Rehab PT IP Evaluation Start: 04/14/21 09:07 Freq: ONCE Status: Active Protocol: Document 04/14/21 13:19 FREDDYALEC (Rec: 04/14/21 13:27 FREDDYALEC [id number]) Subjective/History History History Mr. Candelario is an 85-year-old male with a history of recent hospitalization for pneumonia and pulmonary embolism discharged on 04/05/2021, type 2 diabetes mellitus, hypertension, ASCVD, who states that after going home he felt fine the following day . Then on 04/07/2021 he began to have the dry cough again associated with shortness of breath. This progressively worsened. He also describes some left chest discomfort which he associates with the cough and the shortness of breath. - copied from H&P Subjective Subjective Pt [facility] upon entering room, agrees to answer questions about alertness and PLOF. Pt does complaint of pain in upper chest, and R hip - pt pleasant and joking w/ therapy - pt does report he lives in [place] [facility] w/ spouse of 60+ years, and intermittantly uses walker at home - no reports of supp o2 at home Rehab PT IP Eval Objective Appearance Patient Behavior Appropriate,Cooperative Patient Orientation Place,Name,Birthday,Year, Situation Difficulty following instructions none Speech Pattern Appropriate,Soft-Spoken Ambulation Patient Able to Ambulate Yes Ambulation Observation IP General Gait Pattern Observation Shuffling Step Ambulation Distance (feet) 20 Ambulation Assistive Device None Ambulation Ability Contact Guard/Hand Hold, Minimal x 1 (25% assist) Balance Ability to Arise Able, uses arms to help Sitting Balance Steady, safe Standing Balance Steady, wide stance Dynamic Sitting Balance Ability Good Dynamic Standing Balance Ability Poor Transfers Chair Transfer Ability Independent Sit to Stand Bed Transfer Ability
--- NOTE | 2021-04-14 13:40 | DIET.NUTRFU ---
RD saw patient at lunch today, he indicated poor po intake. He was downgraded to ground diet this morning secondary to sore throat, something new over the weekend. He also c/o coughing, provider aware and tesslon jennifer and ABT tx in place. Will start glucerna BID to help meet nutritional needs until meal intake improves. He claims he likes strawberry
--- NOTE | 2021-04-14 19:45 | PC.NURSE ---
pt has been up to chair for most of shift. tired and weak. 2 assist for ambulation. tolerated po intake well.
[2021-04-15] VITALS (11 sets, daily range): BP systolic 102–172; BP diastolic 59–76; PULSE 60–80; RESP 18–20; TEMP 36.4–36.9; O2SAT 95–98; BMI 32.9
--- NOTE | 2021-04-15 05:11 | PC.NURSE ---
Pt has been up to chair this shift. Has declined to go to bed. Has remained on 3L O2 NC. Redirection has been needed at times to keep NC on. Pt has c/o discofort to ears from NC. ear padding has been applied. DSGs to bilateral arms changed x2 this shift due to prior skin tears. Pt has been up to use urinal with standby assistance. Urine output has been good. VSS. Will continue to monitor.
[2021-04-15 07:18] LABS: Anion Gap 13.6 mEq/L (5-15); Calcium 8.4 mg/dl (8.4-10.2); Carbon Dioxide 30 mmol/L (22.0-30.0); Chloride 86 mmol/L (98-107); Creatinine Clearance Estimated 38 mL/min (50-200); Estimated Glomerular Filt Rate 32 ml/min (>60); GFR (African American) 39 ML/MIN (>60); Glucose 243 mg/dl (74-100); Potassium 4.6 mmoL/L (3.5-5.1); Sodium 125 mmol/L (136-145)
[2021-04-15 07:35] LABS: Blood Urea Nitrogen 93 mg/dl (9-20)
--- NOTE | 2021-04-15 08:10 | HMH.ACPN2 ---
Internal Medicine - PN: Subj *Date: 04/15/21 *Time: 08:10 Interval history: Patient states he feels horrible. He states he ask everyone that comes in and that he needs something for pain. Tylenol did not help. He still is unable to eat because of his sore mouth but he can drink fluids. This was observed. He sits mostly in the bedside recliner with eyes closed. Nursing staff says he sleeps very little and constantly yells help and then does not know what he wants. He states he is short of breath. He hurts in his right chest wall, his back, his neck, his shoulders,. [place] data this morning Blood chemistries sodium increased a little bit to 125 with a potassium of 4.6. BUN is 93 but creatinine has improved to 2. GFR improved from 35-39. O2 sats are 98% on 3 L of nasal cannula . He is afebrile. Blood pressure 102/68. Continues with normal saline at [address] of the neck showed the following IMPRESSION: Anterior subcutaneous edema or hemorrhage in the lower neck and upper chest. Chest x-ray yesterday showed no acute cardiopulmonary process. Exam Vital signs and Labs for Last 24 Hours: Temp Pulse Resp BP Pulse Ox 97.5 F L 75 18 102/68 L 98 04/15/21 04:00 04/15/21 06:00 04/15/21 04:00 04/15/21 04:00 04/15/21 06:00 Laboratory Results - last 24 hr 04/12/21 10:43: POC Glucose 344 H* 04/15/21 06:50: Sodium 125 L, Potassium 4.6, Chloride 86 L, Carbon Dioxide 30, Anion Gap 13.6, BUN 93 H, Creatinine 2.00 H, Estimated Creat Clear 38, Estimated GFR 32 L, Est GFR ( Amer) 39 L, Glucose 243 H, Calcium 8.4 I & O for Last 24 hours: Intake & Output 04/12/21 04/13/21 04/14/21 04/15/21 11:59 11:59 11:59 11:59 Intake Total 1320 / 1320 480 / 480 240 / 240 120 / 120 Output Total 950 / 950 600 / 600 1600 / 1600 1150 / 1150 Balance 370 / 370 -120 / -120 -1360 / -1360 -1030 / -1030 Weight 215 lb 6.971 oz 214 lb 6.4 oz 218 lb 217 lb 4.8 oz Microbiology Reports for the Last 24 Hours: Microbiology 04/09/21 13:53 Sputum - Expectorated Sputum Gram Stain - Final 04/09/21 13:53 Sputum - Expectorated Sputum Sputum Culture - Final Normal Respiratory Adela - Constitutional no acute distress (He is sitting in the recliner at bedside. Eyes are closed. He frowns whenever spoken to) - *Routine Neck Exam Comments: Ecchymosis upper chest/neck - *Routine Respiratory Exam Present: crackles (Crackles on the right. No wheezing audible) - *Routine Cardiovascular Exam Present: RRR - *Routine Abdominal Exam Present: soft, normoactive bowel sounds. Absent: tenderness - *Routine Extremities Exam Present: edema. Absent: calf tenderness - *Routine Neurological Exam Present: alert Difficult to determine orientation. Nursing staff feels that he is confused. Assessment and Plan (1) Acute exacerbation of chronic obstructive airways disease Status: Acute Category: Medical Code(s): J44.1 - Chronic obstructive pulmonary disease with (acute) exacerbation (2) CAD (coronary artery disease) Status: Acute Category: Medical Code(s): I25.10 - Atherosclerotic heart disease of [place] coronary artery without angina pectoris (3) COPD (chronic obstructive pulmonary disease) Status: Acute Category: Medical Code(s): J44.9 - Chronic obstructive pulmonary disease, unspecified (4) Deep vein thrombosis (DVT) of popliteal vein of left lower extremity Status: Acute Category: Medical Code(s): I82.432 - Acute embolism and thrombosis of left popliteal vein (5) Diastolic dysfunction Status: Acute Category: Medical Code(s): I51.89 - Other ill-defined heart diseases (6) PNA (pneumonia) Status: Acute Qualifiers: Pneumonia type: due to unspecified organism Laterality: bilateral Lung location: lower lobe of lung Qualified Code(s): J18.9 - Pneumonia, unspecified organism Category: Medical Code(s): J18.9 - Pneumonia, unspecified organism
--- NOTE | 2021-04-15 09:11 | FL_ITS ---
FINAL REPORT CLINICAL HISTORY: Dysphagia FINDINGS: MODIFIED BARIUM SWALLOW History: Dysphagia. FINDINGS: Fluoroscopy was provided for the speech pathologist to evaluate the swallowing mechanism. The patient was given several different consistencies of barium while the swallow was visualized fluoroscopically. The report of the speech pathologist should be consulted prior to making dietary decisions. FLUOROSCOPY TIME: 2 minutes 8 seconds. 10 fluoroscopic spot runs were obtained. IMPRESSION: Modified barium swallow under fluoroscopic guidance. Please see the report of the speech pathologist for more detail. Reviewed, Interpreted and Dictated by Nico Villalpando III, MD Transcribed by DOM Montanez Authenticated by Nico Villalpando III, MD on 04/16/2021 09:55:29 AM [facility]
--- NOTE | 2021-04-15 09:25 | HMH.PULMPN ---
Internal Medicine - PN: Subj *Date: 04/15/21 *Time: 11:35 Interval history: Patient admits continued achy chest pain. Exam - Constitutional Constitutional:: Absent: no acute distress, comfortable - HENMT Exam HENMT: Present: normocephalic, atraumatic - Eye Exam Eyes:: Present: normal appearance both eyes and related structures - Neck Exam Neck:: Present: normal visual inspection - Respiratory Exam Respiratory:: Present: no respiratory distress, crackles, wheezing - Cardiovascular Exam Cardiac:: Present: S1, S2 - GI Exam GI:: Present: soft - Skin Exam Skin: Present: warm, no rash - Neurological Exam Neurological: Present: alert, awake, normal cognition - Extremities Exam Extremities: Present: no cyanosis, no clubbing, edema Assessment and Plan (1) Acute exacerbation of chronic obstructive airways disease Status: Acute Category: Medical Code(s): J44.1 - Chronic obstructive pulmonary disease with (acute) exacerbation (2) CAD (coronary artery disease) Status: Acute Category: Medical Code(s): I25.10 - Atherosclerotic heart disease of [place] coronary artery without angina pectoris (3) COPD (chronic obstructive pulmonary disease) Status: Acute Category: Medical Code(s): J44.9 - Chronic obstructive pulmonary disease, unspecified (4) Deep vein thrombosis (DVT) of popliteal vein of left lower extremity Status: Acute Category: Medical Code(s): I82.432 - Acute embolism and thrombosis of left popliteal vein (5) Diastolic dysfunction Status: Acute Category: Medical Code(s): I51.89 - Other ill-defined heart diseases (6) PNA (pneumonia) Status: Acute Qualifiers: Pneumonia type: due to unspecified organism Laterality: bilateral Lung location: lower lobe of lung Qualified Code(s): J18.9 - Pneumonia, unspecified organism Category: Medical Code(s): J18.9 - Pneumonia, unspecified organism (7) DM type 2 (diabetes mellitus, type 2) Status: Acute Qualifiers: Diabetes mellitus long term care social worker insulin use: unspecified long term care social worker insulin use status Diabetes mellitus complication status: with other specified complication Qualified Code(s): E11.69 - Type 2 diabetes mellitus with other specified complication Category: Medical Code(s): E11.9 - Type 2 diabetes mellitus without complications (8) Pulmonary embolism Status: Acute Category: Medical Code(s): I26.99 - Other pulmonary embolism without acute cor pulmonale (9) Allergic reaction caused by a drug Status: Acute Category: Medical Code(s): T78.40XA - Allergy, unspecified, initial encounter (10) Respiratory arrest Status: Acute Category: Medical Code(s): R09.2 - Respiratory arrest (11) Pulmonary hypertension Status: Acute Category: Medical Code(s): I27.20 - Pulmonary hypertension, unspecified (12) Edema Status: Acute Category: Medical Code(s): R60.9 - Edema, unspecified (13) HTN (hypertension) Status: Acute Category: Medical Code(s): I10 - Essential (primary) hypertension (14) HLD (hyperlipidemia) Status: Acute Category: Medical Code(s): E78.5 - Hyperlipidemia, unspecified (15) Renal insufficiency Status: Acute Category: Medical Code(s): N28.9 - Disorder of kidney and ureter, unspecified (16) Hyponatremia Status: Acute Category: Medical Code(s): E87.1 - Hypo-osmolality and hyponatremia - Assessment and plan all Dx Assessment and Plan for all problems:: #COPD exacerbation: #H/OPulmonary embolism: 81 y/o male recently admitted to the hospital respiratory failure found to have pulmonary embolism started on anticoagulation, also had a right heart cath from diagnosis pulmonary hypertension group 2 status post diuresis with improvement in symptoms presented to the hospital again worsening respiratory status and pulmonary was called for further management. 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
--- NOTE | 2021-04-15 10:38 | PC.NURSE ---
0750 notified mack paz face to face oif pt BUN of 93. NNO 0934 spoke with Rafal in pharmacy over concern that pt was on ASA, Xarelto and Lovenox. Rafal contacted Mack Paz to clarify order. Per Rafal, Lovenox is to be DC.
--- NOTE | 2021-04-15 10:51 | SW/DCPLANNER ---
Addendum entered by [facility] 04/18/21 09:20: Per Dania Boyd this patient has been approved for today. COVID swab has been ordered. This patient will discharge to [facility] today: I will notify patients . Addendum entered by [facility] 04/17/21 13:12: Dania Boyd is able to accept this patient once medically stable for discharge. I also spoke with Dr Jose and he has stated that pending no setbacks patient should be ready for discharge tomorrow. COVID swab will be ordered prior to discharge. I have called and updated patients . Addendum entered by [facility] 04/17/21 11:03: Updated patient information has been faxed to Dania Boyd. Dr Jose has stated that pending no setbacks patient will be medically stable for discharge tomorrow. I will continue to follow up with patients family, Gibson Boyd and Dr Jose. Addendum entered by [facility] 04/16/21 09:54: Dania Boyd has stated that she can accept this patient once medically stable for discharge (if he can administer his own neb at discharge) pending precert. Discharge date is unknown at this time: once known I will inform Dania to start the precert. Addendum entered by [facility] 04/15/21 12:48: Daniastas Boyd will be at [facility] today at 1:45PM w/ to evaluate patient. Original Note: I spoke with this patient and his regarding plans once medically stable for discharge. stated that prior to recent hospital admissions patient resided at home with her and did well at home. I explained PT evaluation and MD recommendation of short term placement once he is medically stable for discharge. stated that she is agreeable with this plan but unsure how her family/patient would feel about the plan. has stated that she would prefer [facility] and is agreeable for [facility] to review patient information. stated that she would speak with patient/family this AM then follow up with me. I have spoke with Dania from [facility] and they do have male beds available at this time. Patient information has been faxed to Dnaia at [facility]. I will follow up with patient, his family, Gibson Centeno. Discharge date is unknown at this time.
--- NOTE | 2021-04-15 13:06 | PC.NURSE ---
pt off unit at this time for modified barium swallow
--- NOTE | 2021-04-15 13:16 | DIET.NUTRFU ---
RD saw patient at lunch, did not tolerate any breakfast. Tried some ice cream before lunch and he reported it hurt and had some coughing. Continues to have difficulty swallowing, barium swallow study today. +2 edema noted per provider, continues on lasix. NS ordered for hydration d/t poor po intake. Labs: Na 125L, K 4.6, BUN 93H, Cr 2.0H, glucose 243H with insulin in place. Glucerna ordered, not sure of tolerance did not try to drink today. Will wait for results of barium study to determine POC. When ready family is considering [facility] for Rehab.
--- NOTE | 2021-04-15 13:44 | PC.NURSE ---
Decision was made to hold pt 1300 dose of tramadol. Pt has had increased agitation and restlessness since the first dose was administered this am. pt did receive tylenol and 1300 dose of lorazepam. will monitor. will notify MD of dose being held and results.
--- NOTE | 2021-04-15 13:47 | PC.NURSE ---
pt has returned to the unit at this time.
--- NOTE | 2021-04-15 13:54 | HMH.SLMBS2 ---
Speech & Language Evaluation Speech/Language Mod Barium Swallow Start: 04/15/21 09:11 Freq: ONCE Status: Complete Protocol: Document 04/15/21 13:37 TY (Rec: 04/15/21 13:54 TY [id number]) General Information General Current Food Consistancy Mechanical Soft,Thin Liquids Dentition Upper & Lower Dentures Comment: cannot wear dentures due to swollen gums Oxygen Status Room Air Facial Symmetry Symmetrical Patient Orientation Person,Place,Time,Situation Ability to Follow Directions Excellent Communication Ability No Impairment MBS Recommendations Diet Dietary Recommendations Mechanical Soft,Thin Liquids Mod Barium Swallow Impressions Summary and Impressions Oral Phase Impression Moderate Impairment Oral Phase Summary Mr. Leary was given the following consistencies: thins via straw and open cup, pudding, pureed, mechanical soft, and pill with thin wash. Regular was not attempted due to sore gums and difficulty with mastication. Mr. Leary exhibited decreased mastication with pudding, pureed, and mechanical soft due to swollen, red gums. Pharyngeal Phase Impression Mild Impairment Pharyngeal Phase Summary He did exhibit prematrue spillage into upper esophagus into pyriform sinuses with pudding, and mechanical soft. Vallecular residue was noted with mechanical soft. No aspiration noted. Speech/Language MBS Assessment/Goals/Plan Assessment Date of Evaluation: 04/15/21 Evaluation Type Initial Certification Assessment/Problems Dysphagia Does Patient Qualify for Service No Qualify/Failure Comment Therapy is not warranted for Mr. Leary due to difficulty with mastication resulting from swollen oral cavity and tissues. Plan Pt/Guardian verbally ack understanding Yes of dx/prognosis/goals G -code Required No Mod Barium Swallow Setup Exam Setup Radiologist Nico Villalpando Level of Consciousness Awake,Alert,Appropriate, Follows Commands Position (degrees) 90 Mod Barium Swallow-Lat View Textures Later
--- NOTE | 2021-04-15 14:40 | PC.NURSE ---
Addendum entered by Alma Velazquez RN 04/15/21 15:34: 1513 Dr Jose returned phone call. notified him of pt restlessness and agitation and that this began/worsened following first dose of tramadol. MD notified that 1300 dose was held. NNO also notified md that pt had crackles in emily bases this am, and that this afternoon crackles are audible when standing next to pt. MD wants to continue IVF r/t pt low sodium. NNO Original Note: [id number] Jose in [place] office to notify him of pt restlessness and agitation. awaiting call back.
--- NOTE | 2021-04-15 15:36 | PC.NURSE ---
pt was placed in bed by staff at approx 1430. pt was restless and agitated and unable to relax.
--- NOTE | 2021-04-15 15:38 | DIET.NUTRFU ---
Addendum entered by Sariah Cash RD, LD 04/15/21 16:10: Saw patient with a pimento cheese sandwich and pepsi. Not much was consumed but he felt like he tolerated the pepsi just fine.Will continue to monitor for po intake. Original Note: Reviewed swallow study indicating MSOFT diet is appropriate. He was unable to wear dentures secondary to swollen gums. Will continue MSOFT diet and monitor tolerance. Supplements are already in place BID and IVF was started d/t low sodium.
[2021-04-15 17:43] LABS: POC Glucose,Bedside 234 (70-110)
[2021-04-15 17:43] LABS: POC Glucose,Bedside 278 (70-110)
--- NOTE | 2021-04-15 18:17 | PC.NURSE ---
Pt has been extremely restless and agitated at this time this shift. pt daughter at bedside and after a discussion, she feels that the pt may be over-sedated. family states that he only takes 0.5mg lorazepam at bedtime. pt dosage has now been changed to 1mg tid. daughter requests that pt not get full dose at hs tonight. lungs contain crackles in emily bases. pt has large bruise to r flank, r outer thigh, r outer calf, and r outer ankle. he also has large bruise with edema/hematoma to his lower neck and upper chest.pt has 3+ edema pitting in ble. pt is alert to self. he spent most of the day up to the chair but was unable/unwilling to reposition himself. pt requested to get up and walk. PT was called for assistance. pt was maneuvered to the bed and has been in bed/sitting on the side of the bed since approx 1430. will continue to monitor pt condition and situation.
[2021-04-15 20:19] LABS: POC Glucose,Bedside 247 (70-110)
[2021-04-16] VITALS (11 sets, daily range): BP systolic 103–132; BP diastolic 56–69; PULSE 62–80; RESP 17–19; TEMP 36.6–37; O2SAT 92–99; BMI 33.0
[2021-04-16 06:16] LABS: POC Glucose,Bedside 269 (70-110)
--- NOTE | 2021-04-16 08:49 | HMH.ACPN2 ---
Internal Medicine - PN: Subj *Date: 04/16/21 *Time: 08:49 Interval history: Patient states he is feeling a little bit better today. Nursing says his daughter is concerned that his dose of lorazepam is keeping him sedated. She states he usually just takes lorazepam at night and would like his dose changed. She is also concerned about his tramadol and thinks it makes him unable to urinate. The patient states however that he was up urinating all through the night. He denies any pain other than in his chest and he describes it as an achy pain. He did try to eat a small amount of breakfast. Exam Vital signs and Labs for Last 24 Hours: Temp Pulse Resp BP Pulse Ox 97.9 F 67 18 132/68 98 04/16/21 07:39 04/16/21 07:39 04/16/21 07:39 04/16/21 07:39 04/16/21 07:39 Laboratory Results - last 24 hr 04/14/21 20:07: POC Glucose 234 H 04/15/21 17:02: POC Glucose 278 H 04/15/21 20:06: POC Glucose 247 H 04/16/21 06:03: POC Glucose 269 H I & O for Last 24 hours: Intake & Output 04/13/21 04/14/21 04/15/21 04/16/21 11:59 11:59 11:59 11:59 Intake Total 480 / 480 240 / 240 120 / 120 600 / 600 Output Total 600 / 600 1600 / 1600 1550 / 1550 1325 / 1325 Balance -120 / -120 -1360 / -1360 -1430 / -1430 -725 / -725 Weight 214 lb 6.4 oz 218 lb 217 lb 4.8 oz 217 lb 15.995 oz - Constitutional no acute distress - *Routine Respiratory Exam Present: decreased breath sounds, rhonchi, wheezes (faint) - *Routine Cardiovascular Exam Present: RRR - *Routine Abdominal Exam Present: soft, normoactive bowel sounds. Absent: tenderness - *Routine Extremities Exam Present: edema (Bilateral lower extremity edema). Absent: cyanosis, clubbing - *Routine Skin Exam Present: warm, ecchymosis (Significant bruising all along the chest up to the neck). Absent: rash - *Routine Neurological Exam Present: alert, oriented X3 Assessment and Plan (1) Acute exacerbation of chronic obstructive airways disease Status: Acute Category: Medical Code(s): J44.1 - Chronic obstructive pulmonary disease with (acute) exacerbation (2) CAD (coronary artery disease) Status: Acute Category: Medical Code(s): I25.10 - Atherosclerotic heart disease of [place] coronary artery without angina pectoris (3) COPD (chronic obstructive pulmonary disease) Status: Acute Category: Medical Code(s): J44.9 - Chronic obstructive pulmonary disease, unspecified (4) Deep vein thrombosis (DVT) of popliteal vein of left lower extremity Status: Acute Category: Medical Code(s): I82.432 - Acute embolism and thrombosis of left popliteal vein (5) Diastolic dysfunction Status: Acute Category: Medical Code(s): I51.89 - Other ill-defined heart diseases (6) PNA (pneumonia) Status: Acute Qualifiers: Pneumonia type: due to unspecified organism Laterality: bilateral Lung location: lower lobe of lung Qualified Code(s): J18.9 - Pneumonia, unspecified organism Category: Medical Code(s): J18.9 - Pneumonia, unspecified organism (7) DM type 2 (diabetes mellitus, type 2) Status: Acute Qualifiers: Diabetes mellitus emt intermediate insulin use: unspecified fdc insulin use status Diabetes mellitus complication status: with other specified complication Qualified Code(s): E11.69 - Type 2 diabetes mellitus with other specified complication Category: Medical Code(s): E11.9 - Type 2 diabetes mellitus without complications (8) Pulmonary embolism Status: Acute Category: Medical Code(s): I26.99 - Other pulmonary embolism without acute cor pulmonale (9) Allergic reaction caused by a drug Status: Acute Category: Medical Code(s): T78.40XA - Allergy, unspecified, initial encounter (10) Respiratory arrest Status: Acute Category: Medical Code(s): R09.2 - Respiratory arrest (11) Pulmonary hypertension Status: Acute Category: Medical Code(s): I27.20 - Pulmonary hypertension, unspecified (12) Georgi
--- NOTE | 2021-04-16 09:30 | HMH.PULMPN ---
Internal Medicine - PN: Subj *Date: 04/16/21 *Time: 13:33 Interval history: No acute respiratory events overnight. Exam - Constitutional Constitutional:: Present: no acute distress. Absent: comfortable - HENMT Exam HENMT: Present: normocephalic, atraumatic - Eye Exam Eyes:: Present: normal appearance both eyes and related structures - Neck Exam Neck:: Present: normal visual inspection - Respiratory Exam Respiratory:: Present: able to speak in complete sentences, no respiratory distress, crackles. Absent: wheezing - Cardiovascular Exam Cardiac:: Present: S1, S2 - GI Exam GI:: Present: soft - Skin Exam Skin: Present: warm, no rash - Neurological Exam Neurological: Present: alert, awake, normal cognition - Extremities Exam Extremities: Present: no cyanosis, no clubbing, edema Assessment and Plan (1) Acute exacerbation of chronic obstructive airways disease Status: Acute Category: Medical Code(s): J44.1 - Chronic obstructive pulmonary disease with (acute) exacerbation (2) CAD (coronary artery disease) Status: Acute Category: Medical Code(s): I25.10 - Atherosclerotic heart disease of [place] coronary artery without angina pectoris (3) COPD (chronic obstructive pulmonary disease) Status: Acute Category: Medical Code(s): J44.9 - Chronic obstructive pulmonary disease, unspecified (4) Deep vein thrombosis (DVT) of popliteal vein of left lower extremity Status: Acute Category: Medical Code(s): I82.432 - Acute embolism and thrombosis of left popliteal vein (5) Diastolic dysfunction Status: Acute Category: Medical Code(s): I51.89 - Other ill-defined heart diseases (6) PNA (pneumonia) Status: Acute Qualifiers: Pneumonia type: due to unspecified organism Laterality: bilateral Lung location: lower lobe of lung Qualified Code(s): J18.9 - Pneumonia, unspecified organism Category: Medical Code(s): J18.9 - Pneumonia, unspecified organism (7) DM type 2 (diabetes mellitus, type 2) Status: Acute Qualifiers: Diabetes mellitus filler leaf cutter long insulin use: unspecified mcfp insulin use status Diabetes mellitus complication status: with other specified complication Qualified Code(s): E11.69 - Type 2 diabetes mellitus with other specified complication Category: Medical Code(s): E11.9 - Type 2 diabetes mellitus without complications (8) Pulmonary embolism Status: Acute Category: Medical Code(s): I26.99 - Other pulmonary embolism without acute cor pulmonale (9) Allergic reaction caused by a drug Status: Acute Category: Medical Code(s): T78.40XA - Allergy, unspecified, initial encounter (10) Respiratory arrest Status: Acute Category: Medical Code(s): R09.2 - Respiratory arrest (11) Pulmonary hypertension Status: Acute Category: Medical Code(s): I27.20 - Pulmonary hypertension, unspecified (12) Edema Status: Acute Category: Medical Code(s): R60.9 - Edema, unspecified (13) HTN (hypertension) Status: Acute Category: Medical Code(s): I10 - Essential (primary) hypertension (14) HLD (hyperlipidemia) Status: Acute Category: Medical Code(s): E78.5 - Hyperlipidemia, unspecified (15) Renal insufficiency Status: Acute Category: Medical Code(s): N28.9 - Disorder of kidney and ureter, unspecified (16) Hyponatremia Status: Acute Category: Medical Code(s): E87.1 - Hypo-osmolality and hyponatremia - Assessment and plan all Dx Assessment and Plan for all problems:: #COPD exacerbation: #H/OPulmonary embolism: #Acute on chronic hypoxic respiratory failure: #Group 2 pulmonary hypertension 81 y/o male recently admitted to the hospital respiratory failure found to have pulmonary embolism started on anticoagulation, also had a right heart cath from diagnosis pulmonary hypertension group 2 status post diuresis with improvement in symptoms presented to the hospital again worsening respiratory status and pu
--- NOTE | 2021-04-16 10:36 | DIET.NUTRFU ---
RD saw resident for breakfast, only ate couple bites but felt like throat was not as sore. Had glucerna at bedside and drank 100%, Continue to encourage to drink until meal intake improves. Patient was noted to have +3 edema to BLE, weight is up 04/13: 214 and now 217# due to fluid gains. Continues on lasix, labs reviewed from 04/15: Na 125L, K 4.6, BUN 93, Cr 2.0. Changed glucerna to all meals to help meet needs.
[2021-04-16 11:11] LABS: Chloride 87 mmol/L (98-107); Sodium 126 mmol/L (136-145)
[2021-04-16 11:12] LABS: Potassium 4.5 mmoL/L (3.5-5.1)
[2021-04-16 11:14] LABS: Creatinine Clearance Estimated 38 mL/min (50-200)
[2021-04-16 11:15] LABS: Anion Gap 12.5 mEq/L (5-15); Calcium 8.6 mg/dl (8.4-10.2); Carbon Dioxide 31 mmol/L (22.0-30.0); Estimated Glomerular Filt Rate 32 ml/min (>60); GFR (African American) 39 ML/MIN (>60); Glucose 259 mg/dl (74-100)
[2021-04-16 11:40] LABS: Blood Urea Nitrogen 93 mg/dl (9-20)
[2021-04-16 11:48] LABS: POC Glucose,Bedside 303 (70-110)
--- NOTE | 2021-04-16 11:51 | PC.NURSE ---
1139 CRITICAL LAB RESULT BUN 93, PT NAME, VERIFIED WITH Howard HASSAN FROM LAB. 1142 MESSAGE LEFT WITH KANE AT DR. WOLFF'S OFFICE. NO NEW ORDERS AT THIS TIME
--- NOTE | 2021-04-16 12:30 | PC.NURSE ---
Dr. Jose on floor, Verbal order received to Discontinue Heart monitor. Order read back and verified.
[2021-04-16 16:48] LABS: Creatinine,Urine Random 41 mg/dL (Not Estab.)
[2021-04-16 16:53] LABS: POC Glucose,Bedside 299 (70-110)
--- NOTE | 2021-04-16 18:02 | PC.NURSE ---
Addendum entered by Alma Wilson RN 04/16/21 18:15: NOTE FOR 7455 Original Note: PT HAS RESTED WELL THIS SHIFT, MOSTLY UP IN CHAIR. PT HAS RESTED IN BED WELL, ENCOURAGED TO ELEVATE BLE, TOLERATES WELL. VITAL SIGNS STABLE. ALERT & ORIENTED X 4. LUNGS WITH SCATTERED RHONCHI AND WHEEZES. OCCASIONAL PRODUCTIVE COUGH. PT PLEASANT AND COOPERATIVE WITH CARE. BRUISING UNCHANGED, 3+ EDEMA TO BLE, UNCHANGED. VOIDING WELL. REPORTS OCCASIONAL PAIN, DENIES NEED FOR MEDICATION. FAMILY AT BEDSIDE. NO ACUTE CHANGES. CALL LIGHT WITHIN REACH, SAFETY IN PLACE
[2021-04-16 20:24] LABS: POC Glucose,Bedside 259 (70-110)
[2021-04-17] VITALS (12 sets, daily range): BP systolic 102–152; BP diastolic 51–66; PULSE 61–83; RESP 18–19; TEMP 36.4–36.7; O2SAT 93–98; BMI 32.7
--- NOTE | 2021-04-17 02:05 | PC.NURSE ---
Addendum entered by Delilah Bliss RN 04/17/21 03:36: Pt also given d50 per protocol @0230 Original Note: Pt mildly confused at this time. Pt can state name and , but does not know where he is. FBS 49. Pt given orange juice and crackers at this time, will continue to monitor
[2021-04-17 02:58] LABS: POC Glucose,Bedside 196 (70-110)
--- NOTE | 2021-04-17 03:39 | PC.NURSE ---
Pt has been restless this shift. Pt A&O x4, BLT lungs with inspiratory and expiratory wheezes, fine crackles. Bowel sounds active in all 4 quadrants. Pt IVs patent and LFA is infusing well. Pt is on 3L NC. Pt up tot the chair per request to sleep. pt had a period of altered mental status and FSBS was 49, Pt medicated per protocol and AMS returned to baseline. Pt has voided multiple times this shift. Pt denies SOA, headache, N/V. VSS
--- NOTE | 2021-04-17 05:25 | PC.NURSE ---
MURRAY came and got this RN and reports pt is bleeding. Pt pulled dressing off of IV site that had been D/C'd. Pressure held with gauze and coband pressure dressing applied. pt is on blood thinners. Pt cleaned up and site remains C/D/I. will continue to monitor
--- NOTE | 2021-04-17 06:55 | PC.NURSE ---
Dressing to Lt index finger remains C/D/I
--- NOTE | 2021-04-17 08:58 | HMH.ACPN2 ---
Internal Medicine - PN: Subj *Date: 04/17/21 *Time: 08:58 Interval history: Patient states he feels about the same today. Nursing says his glucose decreased during the night after he was given a long-acting insulin. They requesting this to be stopped as every time this is given to the patient, his sugars drop. He has been stable on sliding scale. His family is requesting that his lorazepam be discontinued because they feel it makes him too lethargic. Nursing however, states he was much better yesterday and was awake more of the day on the decreased dose of lorazepam. Pulmonology also recommends switching the patient from oral to IV Lasix due to lower extremity edema. Exam Vital signs and Labs for Last 24 Hours: Temp Pulse Resp BP Pulse Ox 97.6 F 71 18 152/62 H 96 04/17/21 08:00 04/17/21 08:00 04/17/21 08:00 04/17/21 08:00 04/17/21 08:10 Laboratory Results - last 24 hr 04/16/21 10:10: Sodium 126 L, Potassium 4.5, Chloride 87 L, Carbon Dioxide 31 H, Anion Gap 12.5, BUN 93 H, Creatinine 2.00 H, Estimated Creat Clear 38, Estimated GFR 32 L, Est GFR ( Amer) 39 L, Glucose 259 H, Calcium 8.6 04/16/21 11:11: POC Glucose 303 H* 04/16/21 15:38: Urine Creatinine 41 04/16/21 16:32: POC Glucose 299 H 04/16/21 20:14: POC Glucose 259 H 04/17/21 02:51: POC Glucose 196 H I & O for Last 24 hours: Intake & Output 04/14/21 04/15/21 04/16/21 04/17/21 11:59 11:59 11:59 11:59 Intake Total 240 / 240 120 / 120 600 / 600 120 / 120 Output Total 1600 / 1600 1550 / 1550 1325 / 1325 1800 / 1800 Balance -1360 / -1360 -1430 / -1430 -725 / -725 -1680 / -1680 Weight 218 lb 217 lb 4.8 oz 217 lb 15.995 oz 216 lb 0.848 oz - Constitutional no acute distress - *Routine Respiratory Exam Present: rhonchi, wheezes - *Routine Cardiovascular Exam Present: RRR - *Routine Abdominal Exam Present: soft, normoactive bowel sounds. Absent: tenderness - *Routine Extremities Exam Present: edema (2+ lower extremity edema bilaterally). Absent: cyanosis, clubbing - *Routine Skin Exam Present: warm, ecchymosis (Severe of the chest). Absent: rash - *Routine Neurological Exam Present: alert, oriented X3 Assessment and Plan (1) Acute exacerbation of chronic obstructive airways disease Status: Acute Category: Medical Code(s): J44.1 - Chronic obstructive pulmonary disease with (acute) exacerbation (2) CAD (coronary artery disease) Status: Acute Category: Medical Code(s): I25.10 - Atherosclerotic heart disease of [place] coronary artery without angina pectoris (3) COPD (chronic obstructive pulmonary disease) Status: Acute Category: Medical Code(s): J44.9 - Chronic obstructive pulmonary disease, unspecified (4) Deep vein thrombosis (DVT) of popliteal vein of left lower extremity Status: Acute Category: Medical Code(s): I82.432 - Acute embolism and thrombosis of left popliteal vein (5) Diastolic dysfunction Status: Acute Category: Medical Code(s): I51.89 - Other ill-defined heart diseases (6) PNA (pneumonia) Status: Acute Qualifiers: Pneumonia type: due to unspecified organism Laterality: bilateral Lung location: lower lobe of lung Qualified Code(s): J18.9 - Pneumonia, unspecified organism Category: Medical Code(s): J18.9 - Pneumonia, unspecified organism (7) DM type 2 (diabetes mellitus, type 2) Status: Acute Qualifiers: Diabetes mellitus family support specialist insulin use: unspecified group home insulin use status Diabetes mellitus complication status: with other specified complication Qualified Code(s): E11.69 - Type 2 diabetes mellitus with other specified complication Category: Medical Code(s): E11.9 - Type 2 diabetes mellitus without complications (8) Pulmonary embolism Status: Acute Category: Medical Code(s): I26.99 - Other pulmonary embolism without acute cor pulmonale (9) Allergic reaction caused by a drug Status: Acute Category: Medical Code(s): T78.40
[2021-04-17 09:20] LABS: Anion Gap 9.1 mEq/L (5-15); Calcium 8.6 mg/dl (8.4-10.2); Carbon Dioxide 35 mmol/L (22.0-30.0); Chloride 89 mmol/L (98-107); Creatinine Clearance Estimated 40 mL/min (50-200); Estimated Glomerular Filt Rate 34 ml/min (>60); GFR (African American) 41 ML/MIN (>60); Glucose 152 mg/dl (74-100); Potassium 4.1 mmoL/L (3.5-5.1); Sodium 129 mmol/L (136-145)
--- NOTE | 2021-04-17 09:31 | HMH.PULMPN ---
Internal Medicine - PN: Subj *Date: 04/17/21 *Time: 11:42 Interval history: No acute respiratory events overnight. Exam - Constitutional Constitutional:: Present: no acute distress, comfortable - HENMT Exam HENMT: Present: normocephalic, atraumatic - Eye Exam Eyes:: Present: normal appearance both eyes and related structures - Neck Exam Neck:: Present: normal visual inspection - Respiratory Exam Respiratory:: Present: able to speak in complete sentences, no respiratory distress. Absent: wheezing - Cardiovascular Exam Cardiac:: Present: S1, S2 - GI Exam GI:: Present: soft, no tenderness - Skin Exam Skin: Present: warm, no rash - Neurological Exam Neurological: Present: alert, awake, normal cognition - Extremities Exam Extremities: Present: no cyanosis, no clubbing, edema Assessment and Plan (1) Acute exacerbation of chronic obstructive airways disease Status: Acute Category: Medical Code(s): J44.1 - Chronic obstructive pulmonary disease with (acute) exacerbation (2) CAD (coronary artery disease) Status: Acute Category: Medical Code(s): I25.10 - Atherosclerotic heart disease of [place] coronary artery without angina pectoris (3) COPD (chronic obstructive pulmonary disease) Status: Acute Category: Medical Code(s): J44.9 - Chronic obstructive pulmonary disease, unspecified (4) Deep vein thrombosis (DVT) of popliteal vein of left lower extremity Status: Acute Category: Medical Code(s): I82.432 - Acute embolism and thrombosis of left popliteal vein (5) Diastolic dysfunction Status: Acute Category: Medical Code(s): I51.89 - Other ill-defined heart diseases (6) PNA (pneumonia) Status: Acute Qualifiers: Pneumonia type: due to unspecified organism Laterality: bilateral Lung location: lower lobe of lung Qualified Code(s): J18.9 - Pneumonia, unspecified organism Category: Medical Code(s): J18.9 - Pneumonia, unspecified organism (7) DM type 2 (diabetes mellitus, type 2) Status: Acute Qualifiers: Diabetes mellitus rn long term care insulin use: unspecified assisted insulin use status Diabetes mellitus complication status: with other specified complication Qualified Code(s): E11.69 - Type 2 diabetes mellitus with other specified complication Category: Medical Code(s): E11.9 - Type 2 diabetes mellitus without complications (8) Pulmonary embolism Status: Acute Category: Medical Code(s): I26.99 - Other pulmonary embolism without acute cor pulmonale (9) Allergic reaction caused by a drug Status: Acute Category: Medical Code(s): T78.40XA - Allergy, unspecified, initial encounter (10) Respiratory arrest Status: Acute Category: Medical Code(s): R09.2 - Respiratory arrest (11) Pulmonary hypertension Status: Acute Category: Medical Code(s): I27.20 - Pulmonary hypertension, unspecified (12) Edema Status: Acute Category: Medical Code(s): R60.9 - Edema, unspecified (13) HTN (hypertension) Status: Acute Category: Medical Code(s): I10 - Essential (primary) hypertension (14) HLD (hyperlipidemia) Status: Acute Category: Medical Code(s): E78.5 - Hyperlipidemia, unspecified (15) Renal insufficiency Status: Acute Category: Medical Code(s): N28.9 - Disorder of kidney and ureter, unspecified (16) Hyponatremia Status: Acute Category: Medical Code(s): E87.1 - Hypo-osmolality and hyponatremia - Assessment and plan all Dx Assessment and Plan for all problems:: #COPD exacerbation: #H/OPulmonary embolism: #Acute on chronic hypoxic respiratory failure: #Group 2 pulmonary hypertension 81 y/o male recently admitted to the hospital respiratory failure found to have pulmonary embolism started on anticoagulation, also had a right heart cath from diagnosis pulmonary hypertension group 2 status post diuresis with improvement in symptoms presented to the hospital again worsening respiratory status and pulmon
[2021-04-17 09:33] LABS: Blood Urea Nitrogen 83 mg/dl (9-20)
--- NOTE | 2021-04-17 09:37 | PC.NURSE ---
09:31 - Spoke with Jil Johnson from Lab. Pt. name and date of verified. Critical lab value of BUN at 83 reported to this nurse. lab value read back and verified. 09:37 - Spoke with Betsy Martinez RN in Dr. Jose's office, as MD's unable to respond at this time. Pt. Name and date of verified. RN notified of critical BUN at 83.
--- NOTE | 2021-04-17 09:41 | DIET.NUTRFU ---
RD saw patient today after breakfast, consumes couple bites of scrambled eggs and drank 100% of glucerna to help meet nutritional needs until appetite improves. He is receiving Glucerna TID providing 660kcal and 30gm protein. May need to increase if patient's po does not improve.
--- NOTE | 2021-04-17 11:14 | HMH.ACPN2 ---
Internal Medicine - PN: Subj *Date: 04/17/21 *Time: 11:14 Exam Vital signs and Labs for Last 24 Hours: Temp Pulse Resp BP Pulse Ox 97.6 F 71 18 152/62 H 96 04/17/21 08:00 04/17/21 08:00 04/17/21 08:00 04/17/21 08:00 04/17/21 08:10 Laboratory Results - last 24 hr 04/16/21 10:10: Carbon Dioxide 31 H, Anion Gap 12.5, BUN 93 H, Creatinine 2.00 H, Estimated Creat Clear 38, Estimated GFR 32 L, Est GFR ( Amer) 39 L, Glucose 259 H, Calcium 8.6 04/16/21 11:11: POC Glucose 303 H* 04/16/21 15:38: Urine Creatinine 41 04/16/21 16:32: POC Glucose 299 H 04/16/21 20:14: POC Glucose 259 H 04/17/21 02:51: POC Glucose 196 H 04/17/21 08:59: Sodium 129 L, Potassium 4.1, Chloride 89 L, Carbon Dioxide 35 H, Anion Gap 9.1, BUN 83 H, Creatinine 1.90 H, Estimated Creat Clear 40, Estimated GFR 34 L, Est GFR ( Amer) 41 L, Glucose 152 H D, Calcium 8.6 I & O for Last 24 hours: Intake & Output 04/14/21 04/15/21 04/16/21 04/17/21 23:59 23:59 23:59 23:59 Intake Total 120 / 120 120 / 120 600 / 600 Output Total 1849 / 2049 1075 / 1625 1650 / 2650 1800 / 1800 Balance -1730 / -1930 -955 / -1505 -1050 / -2049 -1800 / -1800 Weight 98.883 kg 98.566 kg 98.883 kg 98 kg Assessment and Plan (1) Acute exacerbation of chronic obstructive airways disease Status: Acute Category: Medical Code(s): J44.1 - Chronic obstructive pulmonary disease with (acute) exacerbation (2) CAD (coronary artery disease) Status: Acute Category: Medical Code(s): I25.10 - Atherosclerotic heart disease of [place] coronary artery without angina pectoris (3) COPD (chronic obstructive pulmonary disease) Status: Acute Category: Medical Code(s): J44.9 - Chronic obstructive pulmonary disease, unspecified (4) Deep vein thrombosis (DVT) of popliteal vein of left lower extremity Status: Acute Category: Medical Code(s): I82.432 - Acute embolism and thrombosis of left popliteal vein (5) Diastolic dysfunction Status: Acute Category: Medical Code(s): I51.89 - Other ill-defined heart diseases (6) PNA (pneumonia) Status: Acute Qualifiers: Pneumonia type: due to unspecified organism Laterality: bilateral Lung location: lower lobe of lung Qualified Code(s): J18.9 - Pneumonia, unspecified organism Category: Medical Code(s): J18.9 - Pneumonia, unspecified organism (7) DM type 2 (diabetes mellitus, type 2) Status: Acute Qualifiers: Diabetes mellitus nursing home insulin use: unspecified nursing home insulin use status Diabetes mellitus complication status: with other specified complication Qualified Code(s): E11.69 - Type 2 diabetes mellitus with other specified complication Category: Medical Code(s): E11.9 - Type 2 diabetes mellitus without complications (8) Pulmonary embolism Status: Acute Category: Medical Code(s): I26.99 - Other pulmonary embolism without acute cor pulmonale (9) Allergic reaction caused by a drug Status: Acute Category: Medical Code(s): T78.40XA - Allergy, unspecified, initial encounter (10) Respiratory arrest Status: Acute Category: Medical Code(s): R09.2 - Respiratory arrest (11) Pulmonary hypertension Status: Acute Category: Medical Code(s): I27.20 - Pulmonary hypertension, unspecified (12) Edema Status: Acute Category: Medical Code(s): R60.9 - Edema, unspecified (13) HTN (hypertension) Status: Acute Category: Medical Code(s): I10 - Essential (primary) hypertension (14) HLD (hyperlipidemia) Status: Acute Category: Medical Code(s): E78.5 - Hyperlipidemia, unspecified (15) Renal insufficiency Status: Acute Category: Medical Code(s): N28.9 - Disorder of kidney and ureter, unspecified (16) Hyponatremia Status: Acute Category: Medical Code(s): E87.1 - Hypo-osmolality and hyponatremia The patient's infection will respond to the chosen ABx?: Yes Is the patient receiving the right drug, dose, and route?: Yes Could a
[2021-04-17 11:47] LABS: POC Glucose,Bedside 96 (70-110)
--- NOTE | 2021-04-17 14:06 | PC.NURSE ---
Dressing on Right wrist noted to be peeling off, new 4x4 with tegaderm in place for pressure dressing. Coban and kerlix removed from left forearm, 4X4 with tegaderm as pressure dressing in place. Pt. tolerated well. IV dressing changed, noted to be bloody and falling off, IV flushes well, and gives flash back of blood. pt. tolerated well, will continue to monitor.
--- NOTE | 2021-04-17 14:20 | PC.NURSE ---
Pt. in chair, requesting to stand up. Pt. reports he has to pee. staff x3 assisted pt. to stand. Pt. unable to help staff and unable to bear weight when standing. Urinal provided while pt. sitting. No void acheived. Pt. attemtping to take gown off, staff educated pt. of need to keep gown on. Pt. unable to understand. Pt. continues to insist on standing up. Staff offered to help pt. to bed Pt. nodded head yes. Staff assisted pt. to bed with pivot technique. Pt. calm and resting in bed, with eyes closed. call light within reach, will continue to monitor.
--- NOTE | 2021-04-17 14:53 | DIET.NUTRFU ---
RD went to visit post lunch to review meal intake, he was asleep, tray was still there appeared like he ate 50% of chicken. He also had a open glucerna on bedside. Seems to be slightly improving with meal intake. Continue current POC
--- NOTE | 2021-04-17 16:45 | PC.NURSE ---
Routine reassessment completed. See Nursing biophysical for reassessment. Pt. sitting at edge of bed, family member in room. Pt. requests to get up to chair, and becoming agitated. staff x3 assisted pt. to chair. Pt. had difficulty holding his own weight and was max assistance to chair. pt. tolerated fair. P.t sitting up in chair, Family member remains in room, will continue to monitor.
--- NOTE | 2021-04-17 19:30 | PC.NURSE ---
Occured between 1944 - Pt. voicing that he wishes to stand, staff to room. Pt. reports he has to pee. staff x3 attempted to assist pt. to stand. Pt. unable to stand and bear weight. Pt. sitting on edge of chair. Pt. becoming agitated stating I want to pee. Urinal provided. no void achieved. Nurses attempted to have pt. sit back in chair. Pt. becomes agitated with staff assist. Pt. was able to use arms and scoot butt back in chair, so he isn't sitting on edge of chair. Chair alarm on and active. Chair in reclining position with legs up. Pt. resting in chair, call light within reach, bedside report completed with Sarai Hughes RN.
[2021-04-17 22:36] LABS: POC Glucose,Bedside 207 (70-110)
[2021-04-17 22:36] LABS: POC Glucose,Bedside 204 (70-110)
[2021-04-18] VITALS: BP 125/65; PULSE 64; RESP 17; TEMP 36.4; O2SAT 94
--- NOTE | 2021-04-18 01:00 | PC.NURSE ---
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 Multiple attempts tried per nursing staff and were unsuccessful. IV obtained by house on 3rd stick to RAC. Pt tolerated IV start well
--- NOTE | 2021-04-18 01:15 | PC.NURSE ---
PT LAYING IN BED ASLEEP,RESP.EVEN AND UNLABORED.SATURATION ON 2.5 ML OF OXYGEN WAS 93%,WILL CONTINUE TO MONITOR
--- NOTE | 2021-04-18 01:21 | PC.NURSE ---
IV insertions attempted by nursing staff
--- NOTE | 2021-04-18 01:45 | PC.NURSE ---
DECREASED PT TO 2.5ML ON OXYGEN PER NC,WILL RECHECK IN 30 MINS
[2021-04-18 04:00] VITALS: BP 128/61; PULSE 62; RESP 16; TEMP 36.4; O2SAT 96
[2021-04-18 04:55] VITALS: BMI 33.5
[2021-04-18 04:57] LABS: POC Glucose,Bedside 173 (70-110)
--- NOTE | 2021-04-18 06:11 | PC.NURSE ---
PT HAS BEEN CONFUSED ALL NIGHT,THIS MORING HE DID TELL ME HIS NAME AND DATE OF .FSBS WAS 207 AT 2100 AND HE WAS GIVEN 5 UNITS HUMALOG,THIS MORNING FSBS WAS 173,2 UNITS HUMALOG GIVEN.PT HAS MULTIPLE BRUISING ALL OVER HIS BODY.PT IS ON XARELTO .DID GET HIM TO SLEEP OFF AND ON IN BED,BUT HE KEPT TRYING TO GET UP THIS MORNING SO HE IS BACK IN CHAIR,PT JUST SHUFFLES FEET,3+ EDEMA IN BLE
--- NOTE | 2021-04-18 06:26 | PC.NURSE ---
PT JUST PULED HIS IV OUT AND BLOOD WAS ALL DOWN HIS SIDE,GAUZE AND COBAN APPLIED WITH PRESSURE.THIS HAS BEEN THE 2ND IV THIS SHIFT AND IT TOOK MULTIPLE TRIES,PT FLUIDS GOING AT 50ML,WILL ASK IF HE WANTS HIM TO HAVE THESE FLUIDS
[2021-04-18 08:00] VITALS: BP 118/59; PULSE 70; RESP 17; TEMP 36.5; O2SAT 88
--- NOTE | 2021-04-18 08:53 | HMH.ACPN2 ---
Internal Medicine - PN: Subj *Date: 04/18/21 *Time: 08:53 Interval history: Nursing staff and family are worried that the tramadol is making the patient combative. They're requesting that this be stopped. Nursing states he has been confused throughout most of the night. He pulled his IV out and no longer has IV access. He has urinated on the floor. The patient states he feels awful and he hurts all over. Exam Vital signs and Labs for Last 24 Hours: Temp Pulse Resp BP Pulse Ox 97.6 F 62 16 128/61 96 04/18/21 04:00 04/18/21 04:00 04/18/21 04:00 04/18/21 04:00 04/18/21 04:00 Laboratory Results - last 24 hr 04/17/21 05:34: POC Glucose 96 04/17/21 08:59: Sodium 129 L, Potassium 4.1, Chloride 89 L, Carbon Dioxide 35 H, Anion Gap 9.1, BUN 83 H, Creatinine 1.90 H, Estimated Creat Clear 40, Estimated GFR 34 L, Est GFR ( Amer) 41 L, Glucose 152 H D, Calcium 8.6 04/17/21 11:43: POC Glucose 204 H 04/17/21 21:04: POC Glucose 207 H 04/18/21 04:45: POC Glucose 173 H I & O for Last 24 hours: Intake & Output 04/15/21 04/16/21 04/17/21 04/18/21 11:59 11:59 11:59 11:59 Intake Total 120 / 120 600 / 600 360 / 360 700 / 700 Output Total 1550 / 1550 1325 / 1325 2600 / 2600 650 / 650 Balance -1430 / -1430 -725 / -725 -2240 / -2240 50 / 50 Weight 217 lb 4.8 oz 217 lb 15.995 oz 216 lb 0.848 oz 221 lb 4 oz - Constitutional disheveled - *Routine Respiratory Exam Present: decreased breath sounds, wheezes (faint) - *Routine Cardiovascular Exam Present: RRR - *Routine Abdominal Exam Present: soft, normoactive bowel sounds, tenderness (diffuse) - *Routine Extremities Exam Present: edema (Less edema). Absent: cyanosis, clubbing - *Routine Skin Exam Present: warm, ecchymosis (Of the chest and arms). Absent: rash - *Routine Neurological Exam Present: altered mental status Assessment and Plan (1) Acute exacerbation of chronic obstructive airways disease Status: Acute Category: Medical Code(s): J44.1 - Chronic obstructive pulmonary disease with (acute) exacerbation (2) CAD (coronary artery disease) Status: Acute Category: Medical Code(s): I25.10 - Atherosclerotic heart disease of [place] coronary artery without angina pectoris (3) COPD (chronic obstructive pulmonary disease) Status: Acute Category: Medical Code(s): J44.9 - Chronic obstructive pulmonary disease, unspecified (4) Deep vein thrombosis (DVT) of popliteal vein of left lower extremity Status: Acute Category: Medical Code(s): I82.432 - Acute embolism and thrombosis of left popliteal vein (5) Diastolic dysfunction Status: Acute Category: Medical Code(s): I51.89 - Other ill-defined heart diseases (6) PNA (pneumonia) Status: Acute Qualifiers: Pneumonia type: due to unspecified organism Laterality: bilateral Lung location: lower lobe of lung Qualified Code(s): J18.9 - Pneumonia, unspecified organism Category: Medical Code(s): J18.9 - Pneumonia, unspecified organism (7) DM type 2 (diabetes mellitus, type 2) Status: Acute Qualifiers: Diabetes mellitus [facility] insulin use: unspecified [facility] insulin use status Diabetes mellitus complication status: with other specified complication Qualified Code(s): E11.69 - Type 2 diabetes mellitus with other specified complication Category: Medical Code(s): E11.9 - Type 2 diabetes mellitus without complications (8) Pulmonary embolism Status: Acute Category: Medical Code(s): I26.99 - Other pulmonary embolism without acute cor pulmonale (9) Allergic reaction caused by a drug Status: Acute Category: Medical Code(s): T78.40XA - Allergy, unspecified, initial encounter (10) Respiratory arrest Status: Acute Category: Medical Code(s): R09.2 - Respiratory arrest (11) Pulmonary hypertension Status: Acute Category: Medical Code(s): I27.20 - Pulmonary hypertension, unspecified (12) Edema Status: Acute [place]
[2021-04-18 08:55] VITALS: O2SAT 95
[2021-04-18 09:16] LABS: Coronavirus 19, PCR Not Detected (NotDetected); Influenza A, PCR Not Detected (NotDetected); Influenza B, PCR Not Detected (NotDetected)
--- NOTE | 2021-04-18 09:18 | HMH.PULMPN ---
Internal Medicine - PN: Subj *Date: 04/29/21 *Time: 14:56 Interval history: No acute respiratory events overnight. Patient respiratory status remained stable. Exam - Constitutional Constitutional:: Absent: no acute distress, comfortable - HENMT Exam HENMT: Present: normocephalic, atraumatic - Eye Exam Eyes:: Present: normal appearance both eyes and related structures - Neck Exam Neck:: Present: normal visual inspection - Respiratory Exam Respiratory:: Present: able to speak in complete sentences, no respiratory distress. Absent: wheezing - Cardiovascular Exam Cardiac:: Present: S1, S2 - GI Exam GI:: Present: soft - Skin Exam Skin: Present: warm, no rash - Neurological Exam Neurological: Present: alert, awake, normal cognition - Extremities Exam Extremities: Present: no cyanosis, no clubbing, edema Assessment and Plan (1) Acute exacerbation of chronic obstructive airways disease Status: Acute Category: Medical Code(s): J44.1 - Chronic obstructive pulmonary disease with (acute) exacerbation (2) CAD (coronary artery disease) Status: Acute Category: Medical Code(s): I25.10 - Atherosclerotic heart disease of [place] coronary artery without angina pectoris (3) COPD (chronic obstructive pulmonary disease) Status: Acute Category: Medical Code(s): J44.9 - Chronic obstructive pulmonary disease, unspecified (4) Deep vein thrombosis (DVT) of popliteal vein of left lower extremity Status: Acute Category: Medical Code(s): I82.432 - Acute embolism and thrombosis of left popliteal vein (5) Diastolic dysfunction Status: Acute Category: Medical Code(s): I51.89 - Other ill-defined heart diseases (6) PNA (pneumonia) Status: Acute Qualifiers: Pneumonia type: due to unspecified organism Laterality: bilateral Lung location: lower lobe of lung Qualified Code(s): J18.9 - Pneumonia, unspecified organism Category: Medical Code(s): J18.9 - Pneumonia, unspecified organism (7) DM type 2 (diabetes mellitus, type 2) Status: Acute Qualifiers: Diabetes mellitus [facility] insulin use: unspecified 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 Diabetes mellitus complication status: with other specified complication Qualified Code(s): E11.69 - Type 2 diabetes mellitus with other specified complication Category: Medical Code(s): E11.9 - Type 2 diabetes mellitus without complications (8) Pulmonary embolism Status: Acute Category: Medical Code(s): I26.99 - Other pulmonary embolism without acute cor pulmonale (9) Allergic reaction caused by a drug Status: Acute Category: Medical Code(s): T78.40XA - Allergy, unspecified, initial encounter (10) Respiratory arrest Status: Acute Category: Medical Code(s): R09.2 - Respiratory arrest (11) Pulmonary hypertension Status: Acute Category: Medical Code(s): I27.20 - Pulmonary hypertension, unspecified (12) Edema Status: Acute Category: Medical Code(s): R60.9 - Edema, unspecified (13) HTN (hypertension) Status: Acute Category: Medical Code(s): I10 - Essential (primary) hypertension (14) HLD (hyperlipidemia) Status: Acute Category: Medical Code(s): E78.5 - Hyperlipidemia, unspecified (15) Renal insufficiency Status: Acute Category: Medical Code(s): N28.9 - Disorder of kidney and ureter, unspecified (16) Hyponatremia Status: Acute Category: Medical Code(s): E87.1 - Hypo-osmolality and hyponatremia - Assessment and plan all Dx Assessment and Plan for all problems:: #COPD exacerbation: #H/OPulmonary embolism: #Acute on chronic hypoxic respiratory failure: #Group 2 pulmonary hypertension 81 y/o male recently admitted to the hospital respiratory failure found to have pulmonary embolism started on anticoagulation, also had a right heart cath from diagnosis pulmonary hypertension group 2 status post diuresis with improvement in symptoms presented to the hospital again worsening
--- NOTE | 2021-04-18 09:31 | HMH.PHAINT ---
PATIENT DISCHARGING TO [facility], REVIEWED MEDICATION CHANGES ON DISCHARGE TAB PRIOR TO DISCHARGE.
[2021-04-18 10:16] LABS: Sodium, Urine 27 mmol/L (Not Estab.)
--- NOTE | 2021-04-18 11:01 | HMH.DCSUM ---
General - General Admission date:: 04/08/21 Discharge date: 04/18/21 HPI HPI: Mr. Candelario is an 85-year-old male with a history of recent hospitalization for pneumonia and pulmonary embolism discharged on 04/05/2021, type 2 diabetes mellitus, hypertension, ASCVD, who states that after going home he felt fine the following day. Then on 04/07/2021 he began to have the dry cough again associated with shortness of breath. This progressively worsened. He also describes some left chest discomfort which he associates with the cough and the shortness of breath. He denies cardiac pain, and palpitations. He continues to have leg edema and describes leg weakness with difficulty in walking. He presented to the office of [facility] on 04/08/2021 for follow-up after hospitalization with noted O2 sats at 90%. Lungs with diminished breath sounds and rales on the right and a noted cough. CBC done in the office revealed a white blood cell count of 4400 and hemoglobin of 10.3 hematocrit of 31.5. He was sent to the emergency room for further evaluation for possible admission to the hospital. In the emergency room O2 sats were 90% on room air and 95% on O2 per nasal cannula at 2 L/min.He was noted to be afebrile. Laboratory data showed a normal white blood cell count. ABGs showed a pH of 7.43, PCO2 of 35, PO2 of 60.6 and a bicarb of 22.7. Blood blood chemistries revealed a low sodium at 132 with a repeat this morning of 128. Renal function improved with a creatinine of 1.6 on admission and 1.3 this morning. Blood sugars have been elevated in the 300s. Liver function studies were normal. Troponin I's were negative x3. BNP was elevated at 606. TSH was high at 5.11. Chest x-ray revealed increased bilateral pleural pulmonary interstitial prominence and peribronchial thickening compared with the prior chest x-ray from 04/01/2021; Worrisome for bronchitis and interstitial pneumonia. In the emergency room patient was started on Rocephin and doxycycline IV. He was also given a DuoNeb treatment and dexamethasone. Patient states he did sleep some last night. He may feel slightly better this a.m. He continues with a dry hacking cough. He is very frustrated. Hospital Course Hospital Course: The patient was admitted and started on doxycycline and Rocephin along with DuoNebs. Pulmonology was consulted. He started the patient on 40 mg of prednisone daily and changed his antibiotics to Levaquin. He was also seen in consultation by cardiology who felt he needed to remain on his Xarelto due to PE. They started him on verapamil 240 mg daily for diastolic dysfunction in addition to his beta-batool. The patient continued to feel poorly. He was coughing and felt jittery after the neb treatments and steroids. He was switched to xopenex nebs. He was started on some Tussigon and mucinex cough syrup. Pulmonology started him on budesonide every 12 hours as well. During the evening of 04/11/2021, the patient took some liquid cough medication and immediately felt swelling in his tongue, throat, and gums. Benadryl was ordered and did not help. He was given a dose of 125 mg of Solu-Medrol and was started on doxepin 10 mg 3 times a day. Early in the afternoon of 04/11/2021, a [facility] was called to the patient's room. Nursing stated he was ambulating from the chair to the bed when he started to complain of increased shortness of breath and fell onto the bed. He was pulseless and CPR was started. He was not initially hooked up to a panel monitor so they were uncertain as to his arrhythmia. He was given 1 mg of epi IV and his EKG revealed what was felt to be an anterior TX. The patient did begin to respond and breathe on his own. Dr. Nguyễn was notified and he was transported emergently to the [facility] for immediate left heart cath. He had severe stenosis of the distal LAD. They felt the inferior ST elevation likely came from demand ischemia status post epinephrin
[2021-04-18 11:32] VITALS: PULSE 70; PULSE 72; O2SAT 89
--- NOTE | 2021-04-18 11:38 | HMH.PHAINT ---
DISCHARGE MEDICATION LIST DISCUSSED WITH DAUGHTER AND AT LENGTH. ASSURED FAMILY THAT NURSING AT [facility] WOULD KEEP TRACK OF MEDICATIONS FOR PATIENT.
[2021-04-18 12:00] VITALS: BP 105/49; PULSE 62; RESP 18; TEMP 36.8; O2SAT 96
[2021-04-18 12:35] LABS: POC Glucose,Bedside 243 (70-110)
== END 2021-04-18 14:03 | DRG 193 ==
LOC: ER 20:07 → 2ND 20:16 → ICU 04-12 11:29 → 2ND 04-14 07:23
PROVIDERS: Internal Medicine; Internal Medicine Pulmonary Disease; Admitting Provider Family Medicine; Emergency Provider Emergency Medicine; PCP Family Medicine; Visit Provider Family Medicine
PROC: 4A023N7 Measurement of Cardiac Sampling and Pressure, Left Heart, Percutaneous Approach (ICD-10-PCS; principal; 2021-04-11 12:50)
DX: J18.9 Pneumonia, unspecified organism (principal); J96.21 Acute and chronic respiratory failure with hypoxia; I50.33 Acute on chronic diastolic (congestive) heart failure; R09.2 Respiratory arrest; I21.A1 Myocardial infarction type 2; I26.99 Other pulmonary embolism without acute cor pulmonale; J44.1 Chronic obstructive pulmonary disease with (acute) exacerbation; E87.1 Hypo-osmolality and hyponatremia; J44.0 Chronic obstructive pulmonary disease with (acute) lower respiratory infection; I82.432 Acute embolism and thrombosis of left popliteal vein; I27.20 Pulmonary hypertension, unspecified; E11.9 Type 2 diabetes mellitus without complications; Z79.4 Long term (current) use of insulin; Z79.01 Long term (current) use of anticoagulants; Z87.891 Personal history of nicotine dependence; Z95.5 Presence of coronary angioplasty implant and graft; Z85.828 Personal history of other malignant neoplasm of skin; R13.10 Dysphagia, unspecified; Z20.822 Contact with and (suspected) exposure to COVID-19; R60.9 Edema, unspecified; R58 Hemorrhage, not elsewhere classified; T40.425A Adverse effect of tramadol, initial encounter; T46.1X5A Adverse effect of calcium-channel blockers, initial encounter; I25.10 Atherosclerotic heart disease of native coronary artery without angina pectoris; E78.5 Hyperlipidemia, unspecified; N28.9 Disorder of kidney and ureter, unspecified
CPT/HCPCS: 36415; 70371; 70490; 71045; 71046; 80048; 80053; 81001; 82570; 82803; 82947; 82962; 83690; 83880; 84145; 84300; 84443; 84484; 85007; 85025; 85610; 85730; 86140; 87070; 87205; 92611; 93005; 93458; 94640; 94760; 94761; 96365; 96375; 97116; 97161; 97530; 99152; 99284; C1725; C1760; C1769; C9803; J0696; J1644; J1956; Q9967; U0003; U0005

== ENCOUNTER → 2021-04-29 17:42 | Outpatient (CLI) | payer MEDICARE, SELFPAY ==
[2021-04-29 19:07] LABS: Hematocrit 28.6 % (42.0-52.0); Hemoglobin 9.2 g/dL (14.1-18.0)
== END ==
PROVIDERS: Visit Provider Nurse Practitioner Family
DX: D64.9 Anemia, unspecified (principal)
CPT/HCPCS: 85014; 85018

== ENCOUNTER → 2021-05-01 08:36 | Outpatient (CLI) | payer MEDICARE, SELFPAY ==
--- NOTE | 2021-05-01 08:55 | MR_ITS ---
FINAL REPORT CLINICAL HISTORY: HEADACHE loss of gait dizziness and weakness FINDINGS: Multi planar MR imaging was obtained through the brain without contrast. The midline structures appear intact. There is no evidence of Chiari malformation. On T2 and flair axial images there is moderate abnormal signal in the periventricular white matter. There are no discrete foci of cortical signal abnormality. There is abnormal restricted diffusion in the left cerebellar peduncle on images 29 and 30 of series 3. There is a small focus of abnormal restricted diffusion in the left occipital cortex on images 30 and 31 of series 3. There are air-fluid levels in the maxillary sinuses with with associated mild mucosal thickening. The seventh and eighth nerve root complexes are intact. IMPRESSION: Foci of acute ischemia in the left cerebellar peduncle and left occipital lobe. Moderate chronic microvascular ischemia. Acute and chronic bilateral maxillary sinusitis. SONIA in the radiology department was notified of these findings at 10:05 a.m. May 01, 2021. Reviewed, Interpreted and Dictated by Hugo Mckinney MD Transcribed by Mert Cortes Authenticated by Hugo Mckinney MD on 05/01/2021 10:26:[address] [facility]
== END ==
PROVIDERS: PCP Family Medicine; Visit Provider Family Medicine
DX: R51.9 Headache, unspecified (principal)
CPT/HCPCS: 70551

== ENCOUNTER → 2021-05-03 08:57 | Outpatient (REF) | payer MEDICARE, SELFPAY ==
[2021-05-03 12:34] LABS: Occult Blood,Stool Positive (Negative)
== END ==
LOC: LAB.DROPOF 08:57
PROVIDERS: Visit Provider Family Medicine
DX: R19.5 Other fecal abnormalities (principal)
CPT/HCPCS: 82272; G0328